=== PATIENT | male | born 1985 | race Caucasian/White ===

== ENCOUNTER 2021-05-05 01:58 | Inpatient (IN) ==
[2021-05-05] MEDS ORDERED: ONDANSETRON INJ 2 MG/ML 2 ML VIAL IV STA (02:30)
[2021-05-05] MEDS ORDERED: MoRPHine SULFATE 4 MG/ML 1 ML CARP\\VIAL IV STA ×2 (02:30→08:05)
[2021-05-05 03:03] LABS: Basophils # (auto) 0.02 K/uL (0-0.2); Basophils % (auto) 0.2 %; Eosinophils # (auto) 0.06 K/uL (0-0.5); Eosinophils % (auto) 0.5 %; Hematocrit (blood only) 36.9 % (42-52); Hemoglobin 12.3 g/dL (14.0-18.0); Immature Granulocytes # (auto) 0.05 K/uL (0.00-0.02); Immature Granulocytes % (auto) 0.4 %; Lymphocytes # (auto) 1.43 K/uL (1.2-3.4); Lymphocytes % (auto) 10.7 %; Mean Corpuscular Hemoglobin 28.5 pg (25-34); Mean Corpuscular Hgb Conc 33.3 g/dL (32-36); Mean Corpuscular Volume 85.6 fL (80-100); Mean Platelet Volume 8.3 fL (7.4-10.4); Monocytes # (auto) 1.05 K/uL (0.11-0.59); Monocytes % (auto) 7.9 %; Neutrophils # (auto) 10.71 K/uL (1.4-6.5); Neutrophils % (auto) 80.3 %; Platelet Count 356 K/uL (130-400); RDW Standard Deviation 40.6 fL (36.4-46.3); Red Blood Count 4.31 M/uL (4.7-6.1); White Blood Count 13.32 K/uL (4.8-10.8)
[2021-05-05 04:21] LABS: Alanine Aminotransferase 16 U/L (12-78); Albumin Level 3.4 gm/dl (3.4-5.0); Aspartate Aminotransferase 9 U/L (15-37); BUN Creatinine Ratio 13.8 (10-20); Blood Urea Nitrogen 20 mg/dl (7-18); Calcium 9.5 mg/dl (8.5-10.1); Carbon Dioxide 21 mmol/L (21-32); Chloride 105 mmol/L (98-107); Creatinine Clr Calc Pharmacy 94.8 ml/min; Est GFR (African American) 69.6 ml/min; Est GFR (Non-African American) 60.1 ml/min; Glucose 122 mg/dl (70-99); Lipase 51 U/L (73-393); Magnesium 2.3 mg/dl (1.8-2.4); Potassium 4.5 mmol/L (3.5-5.1); Sodium 134 mmol/L (136-145)
[2021-05-05 04:25] LABS: Albumin Globulin Ratio 0.7 (0.9-2); Alkaline Phosphatase 98 U/L (45-117); Bilirubin,Total 0.8 mg/dl (0.2-1); Total Protein 8.5 gm/dl (6.4-8.2); Troponin I < 0.015 ng/ml (0-0.045)
[2021-05-05] MEDS ORDERED: SODIUM CHLORIDE 0.9% 1000ML 1,000 ML IV SCH (04:45)
[2021-05-05] MEDS ORDERED: OPTIRAY 320 125ml IV ONE (04:53)
--- NOTE | 2021-05-05 07:30 | CT Scan Report ---
CT ANGIOGRAM OF THE CHEST CLINICAL HISTORY: Atypical left-sided chest pain, greatest with inspiration. COMPARISON STUDY: No priors. TECHNIQUE: Following the IV administration of 118 cc of Optiray 320, CT angiogram of the chest was pe rformed from the upper abdomen to the thoracic inlet utilizing the pulmonary embolus protocol. Images are reviewed in the axial, sagittal, and coronal planes. 3-D MIPS images are created and assessed. I V contrast was administered without complication. A dose lowering technique was utilized adhering to the principles of ALARA. The examination is compromised by motion artifact. There is suboptimal cont rast opacification of the pulmonary arteries. FINDINGS: Thyroid: Imaged portions of the thyroid gland are normal in size and attenuation. Thoracic aorta: The thoracic aorta is normal in caliber and demonstrates standard 3-vessel arch anato my. No dissection is seen. Pulmonary vasculature: The pulmonary trunk is normal in caliber. There is thrombus within the distal right main pulmonary artery. This extends into the right upper, middle, and lower lobe pulmonary elias rona into segmental and subsegmental branches. There is also thrombus within the distal left main pul monary artery which extends into the left upper and left lower lobe branches. Segmental and subsegmen jj pulmonary are seen within branches of the left upper and lower lobe pulmonary arteries as well as within the lingula. Heart: The heart is normal in size and without pericardial effusion. Lungs and pleural spaces: Evaluation of the lung parenchyma is degraded by motion artifact. There is no pleural effusion. The trachea and central airways are clear. Patchy airspace consolidation is seen at the left lung base. Foci of scarring/atelectasis are seen throughout both lungs. A wedge-shaped f ocus of subpleural consolidation in the right upper lobe on image #150 likely represents a pulmonary infarct. A 7 mm nodular focus in the right upper lobe on image #151 shows minimal internal cavitation . Mediastinum: There is no mediastinal lymphadenopathy. [place]: Clear. Axillae: There is no axillary lymphadenopathy. Upper abdomen: There is a small hiatal hernia. Partially visualized upper abdominal viscera is within normal limits. Skeletal structures: No lytic or blastic bony lesions are seen. IMPRESSION: 1. Extensive bilateral pulmonary embolus as above. 2. A small pulmonary infarct is seen in the right upper lobe. 3. Airspace consolidation at the left lung base could represent developing infarct and/or an infectio us/inflammatory pneumonitis. Clinical correlation will be required. 4. A 7 mm nodular focus in the right upper lobe shows internal cavitation. This is nonspecific and co uld be on an inflammatory or infectious basis. 5. Additional findings as above. ACT 112: Negative or not required by law. Electronically signed by: Nacho Solano M.D. 05/05/2021 7:29 AM
--- NOTE | 2021-05-05 07:45 | Emergency Department Note ---
History of Present Illness General Chief complaint: Flank Pain Stated complaint: BACK PAIN, SOB Time Seen by Provider: 05/05/21 02:21 History of Present Illness Maximum Pain Intensity: 3 This is a 35-year-old male that presents to the emergency department via EMS accompanied by 2 corrections officers with complaints of "back pain, shortness of breath". The patient states that earlier today around 6 PM while in his cell he began with left flank/back pain and inability to lay flat as he could not breathe while lying flat. He also does note some shortness of breath even at rest. This is new for him and he has never had this before. The patient denies any known trauma or injury. He denies any abdominal pain, fevers, chills, chest pain, shortness of breath, nausea, vomiting, diarrhea or leg swelling. Patient does note that it also hurts to take a deep breath in the left flank region. Patient has a history of tonsillectomy, without any other pertinent surgeries. Current pain at this time is a 3/10. Per report he did receive Toradol in route. Home Medications Medication Instructions Recorded Confirmed Type artificial saliva (yerba adri and 2 spray MUCOUS MEMBRANE QID PRN 05/05/21 05/05/21 History lytes) spray (Mouth Kote) ciclesonide 80 mcg/actuation 1 puff INHALATION BID 05/05/21 05/05/21 History aerosol inhaler (Alvesco) doxepin 100 mg capsule 200 mg PO HS 05/05/21 05/05/21 History levalbuterol tartrate 45 2 inh INHALATION QID PRN 05/05/21 05/05/21 History mcg/actuation aerosol inhaler (Xopenex HFA) lithium carbonate 450 mg 450 mg PO BID 05/05/21 05/05/21 History tablet,extended release propranolol 20 mg tablet 20 mg PO BID 05/05/21 05/05/21 History Allergies Allergy/AdvReac Type Severity Reaction Status Date / Time No Known Allergies Allergy Verified 05/05/21 02:14 Past Med/Surg History Medical History Bipolar I disorder Creatinine elevation Pulmonary embolism Social History Smoking Status: Former smoker Second Hand Exposure: No; Do You Dip or Chew Tobacco: No; Tobacco Cessation Education Requested by Patient: No Hx Alcohol Use: No Hx Substance Use: No Preferred Language: [employer] Required: No Beliefs That Will Affect Care: None Current Living Situation: Other Current Living Situation Comment: [facility] Other Information That Helps Us Care for You: No Feels Safe at Home: Yes Safety Concerns: Feels Safe At This Time Assistive Devices: None Review of Systems A total of 10 systems reviewed and were otherwise negative Physical Exam Vital Signs Vital Signs - 24 hr 05/05/21 02:07 05/05/21 02:10 05/05/21 03:00 Temperature 36.9 C Temperature Source Oral Pulse Rate 90 82 Pulse Rate [Apical] Pulse Rhythm [Apical] Pulse Strength [Apical] Respiratory Rate 20 22 Respiratory Effort / Characteristics Non-Labored Spontaneous Respiratory Depth Respiratory Pattern Blood Pressure 153/92 H Blood Pressure [Right Arm] Blood Pressure Mean 112 Blood Pressure Mean [Right Arm] Blood Pressure Position [Right Arm] Pulse Oximetry 94 Oxygen Delivery Method Room Air Oxygen Flow Rate Sepsis Recent Fever Within 48 Hours No Sepsis New/Unexplained Change in Mental Status No Sepsis Action Taken by Nursing No Action Required 05/05/21 04:00 05/05/21 04:35 05/05/21 05:30 Temperature Temperature Source Pulse Rate 83 88 Pulse Rate [Apical] 103 H Pulse Rhythm [Apical] Pulse Strength [Apical] Respiratory Rate 17 20 Respiratory Effort / Characteristics Respiratory Depth Respiratory Pattern Blood Pressure Blood Pressure [Right Arm] 154/83 H Blood Pressure Mean Blood Pressure Mean [Right Arm] 106 Blood Pressure Position [Right Arm] Pulse Oximetry Oxygen Delivery Method Oxygen Flow Rate Sepsis Recent Fever Within 48 Hours Sepsis New/Unexplained Change in Mental Status Sepsis Action Taken by Nursing 05/05/21 06:11 05/05/21 07:57 Temperature Temperature Source Pulse Rate Pulse Rate [Apical] 88 Pulse Rhythm [Apical] Regular Pulse Strength [Apical] Normal Respiratory Rate 18 Respiratory Effort / Characteristics Non-Labored Respiratory Depth Normal Respiratory Pattern Regular Blood Pressure Blood Pressure [Right Arm] 137/88 131/91 Blood Pressure Mean Blood Pressure Mean [Right Arm] 104 104 Blood Pressure Position [Right Arm] Sitting Pulse Oximetry 97 100 Oxygen Delivery Method Room Air Nasal Cannula Oxygen Flow Rate 2 Sepsis Recent Fever Within 48 Hours Sepsis New/Unexplained Change in Mental Status Sepsis Action Taken by Nursing VITAL SIGNS - Vital signs and nursing notes were reviewed. Stable and afebrile. GENERAL -35-year-old male appearing his stated age who is in no acute distress. Communicates well with provider and answers questions appropriately. SKIN - Without rashes. No meningeal or petechial rash. HEAD - NC/AT. EYES - PERRL with EOMI bilaterally. Sclera anicteric. LUNGS - Chest wall symmetric without accessory muscle use, intercostals retrac tions, or central cyanosis. Normal vesicular breath sounds CTA B/L. No wheezes, rales, or rhonchi appreciated. CARDIAC - RRR with S1/S2. No murmur, rubs, or gallops appreciated. ABDOMEN - Abdominal contour normal without pulsations or visible masses. BS normoactive all four quadrants. No tenderness, palpable masses, hepatosplenomegaly, or ascites noted. EXTREMITIES - No clubbing or peripheral cyanosis. NEUROLOGIC - Cranial nerves II through XII grossly intact. PSYCH - A&Ox3 and cooperates fully with examiner. Pt is very pleasant and interacts well with examiner. Course Administered Medications Acetaminophen (Acetaminophen 325 Mg Tab) 650 mg PO Q4H PRN PRN Reason: Pain or Fever Stop: 06/04/21 11:10 Last Admin: 05/05/21 12:28 Dose: 650 mg Documented by: [id number] Heparin Sodium/Dextrose (Heparin Sodium/Dextrose) 25,000 units in 500 mls @ 37 mls/hr IV .[id number] [facility]; Protocol Stop: 06/04/21 08:29 Last Admin: 05/05/21 22:26 Dose: 2,050 units/hr, 41 mls/hr Documented by: [id number] Cosigned by: [id number] Titration: 05/05/21 22:26 Dose: 1,850 units/hr, 37 mls/hr Documented by: [id number] Cosigned by: [id number] Titration: 05/05/21 15:26 Dose: 1,850 units/hr, 37 mls/hr Documented by: [id number] Cosigned by: [id number] Admin: 05/05/21 08:41 Dose: 1,750 units/hr, 35 mls/hr Documented by: [id number] Cosigned by: [id number] Lorazepam (Lorazepam 0.5 Mg Tab) 0.5 mg PO Q12H PRN PRN Reason: Anxiety Stop: 05/07/21 18:51 Last Admin: 05/05/21 19:23 Dose: 0.5 mg Documented by: [id number] Morphine Sulfate (Morphine Sulfate 4 Mg/Ml 1 Ml Carp\\Vial) 4 mg IV Q2H PRN PRN Reason: Pain Stop: 05/19/21 09:36 Last Admin: 05/05/21 22:29 Dose: 4 mg Documented by: [id number] Admin: 05/05/21 18:28 Dose: 4 mg Documented by: [id number] Admin: 05/05/21 16:23 Dose: 4 mg Documented by: [id number] Admin: 05/05/21 13:26 Dose: 4 mg Documented by: [id number] Admin: 05/05/21 09:41 Dose: 4 mg Documented by: [id number] Oxycodone HCl (Oxycodone Hcl Soln 5 Mg/5 Ml Udc) 5 mg PO Q6H PRN PRN Reason: Pain Stop: 05/19/21 18:52 Last Admin: 05/05/21 19:23 Dose: 5 mg Documented by: [id number] Discontinued Medications Heparin Sodium (Porcine) (Heparin Sod (Porcine) 1000 Unit/Ml) 1 units IV NOW ONE Stop: 05/05/21 08:21 Last Admin: 05/05/21 08:43 Dose: 8,000 units Documented by: [id number] Cosigned by: [id number] Heparin Sodium (Porcine) (Heparin Sod (Porcine) 1000 Unit/Ml) 4,000 units IV NOW ONE Stop: 05/05/21 22:01 Last Admin: 05/05/21 22:26 Dose: 4,000 units Documented by: [id number] Cosigned by: [id number] Heparin Sodium/Dextrose (Heparin Iv Adult Wt-Based Standard With Bolus Protocol) 1 ea IV NOW STA; Protocol Stop: 05/05/21 08:06 Last Admin: 05/05/21 08:43 Dose: Not Given Documented by: [id number] Hydromorphone HCl (Hydromorphone Inj 1 Mg/Ml Syringe) 1 mg IV NOW STA Stop: 05/05/21 10:13 Last Admin: 05/05/21 10:23 Dose: 1 mg Documented by: [id number] Sodium Chloride (Nss 1000ml) 1,000 mls @ 999 mls/hr IV .Q1H1M LIANE Stop: 05/05/21 05:45 Last Infusion: 05/05/21 06:01 Dose: 0 mls/hr Documented by: [id number] Admin: 05/05/21 04:50 Dose: 999 mls/hr Documented by: [id number] Ioversol (Optiray 320 125ml) 125 ml IV ONCE ONE Stop: 05/05/21 04:54 Last Admin: 05/05/21 04:53 Dose: 118 ml Documented by: [id number] Morphine Sulfate (Morphine Sulfate 4 Mg/Ml 1 Ml Carp\\Vial) 4 mg IV NOW STA Stop: 05/05/21 02:31 Last Admin: 05/05/21 03:01 Dose: 4 mg Documented by: [id number] Morphine Sulfate (Morphine Sulfate 4 Mg/Ml 1 Ml Carp\\Vial) 4 mg IV NOW STA Stop: 05/05/21 08:06 Last Admin: 05/05/21 08:14 Dose: 4 mg Documented by: [id number] Ondansetron HCl (Ondansetron Inj 2 Mg/Ml 2 Ml Vial) 4 mg IV NOW STA Stop: 05/05/21 02:31 Last Admin: 05/05/21 03:01 Dose: 4 mg Documented by: [id number] Critical Care Time Critical Care Time: Yes Total Critical Care Time: 60 I have personally spent about 60 minutes of critical care time in the direct management of this patient. This includes bedside care, interpretation of diagnostic studies, and testing, discussion with consultants, patient, and other required patient management activities. This 60 minutes is in excess of all separately billable procedures. Medical Decision Making Laboratory Data Result diagrams: 05/05/21 02:50 05/05/21 02:50 Lab Results 05/05/21 05/05/21 05/05/21 Range/Units 02:50 02:50 02:50 WBC 13.32 H (4.8-10.8) K/uL RBC 4.31 L (4.7-6.1) M/uL Hgb 12.3 L (14.0-18.0) g/dL Hct 36.9 L (42-52) % MCV 85.6 (80-100) fL MCH 28.5 (25-34) pg MCHC 33.3 (32-36) g/dL RDW Std Deviation 40.6 (36.4-46.3) fL RDW Coeff of Aleksandr 13.0 (11.5-14.5) % Plt Count 356 (130-400) K/uL MPV 8.3 (7.4-10.4) fL Immature Gran % (Auto) 0.4 % Neut % (Auto) 80.3 % Lymph % (Auto) 10.7 % Rawlins % (Auto) 7.9 % Eos % (Auto) 0.5 % Baso % (Auto) 0.2 % Neut # (Auto) 10.71 H (1.4-6.5) K/uL Lymph # (Auto) 1.43 (1.2-3.4) K/uL Rawlins # (Auto) 1.05 H (0.11-0.59) K/uL Eos # (Auto) 0.06 (0-0.5) K/uL Baso # (Auto) 0.02 (0-0.2) K/uL Immature Gran # (Auto) 0.05 H (0.00-0.02) K/uL PT 10.6 (9.0-12.0) Seconds INR 1.0 (0.9-1.1) APTT 26.4 (21.0-31.0) Seconds PTT Ratio 1.0 Sodium 134 L (136-145) mmol/L Potassium 4.5 (3.5-5.1) mmol/L Chloride 105 (98-107) mmol/L Carbon Dioxide 21 (21-32) mmol/L Anion Gap 8.0 (3-11) BUN 20 H (7-18) mg/dl Creatinine 1.47 H (0.6-1.4) mg/dl Est Cr Clr Drug Dosing 94.8 ml/min Est GFR ( Amer) 69.6 ml/min Est GFR (Non-Af Amer) 60.1 ml/min BUN/Creatinine Ratio 13.8 (10-20) Glucose 122 H (70-99) mg/dl Calcium 9.5 (8.5-10.1) mg/dl Magnesium 2.3 (1.8-2.4) mg/dl Total Bilirubin 0.8 (0.2-1) mg/dl AST 9 L (15-37) U/L ALT 16 (12-78) U/L Alkaline Phosphatase 98 (45-117) U/L Troponin I < 0.015 (0-0.045) ng/ml Total Protein 8.5 H (6.4-8.2) gm/dl Albumin 3.4 (3.4-5.0) gm/dl Globulin 5.0 H (2.5-4.0) gm/dl Albumin/Globulin Ratio 0.7 L (0.9-2) Lipase 51 L (73-393) U/L COVID-19 Eval Order SARS-CoV-2 (PCR) (Negative) 05/05/21 05/05/21 Range/Units 08:00 08:00 WBC (4.8-10.8) K/uL RBC (4.7-6.1) M/uL Hgb (14.0-18.0) g/dL Hct (42-52) % MCV (80-100) fL MCH (25-34) pg MCHC (32-36) g/dL RDW Std Deviation (36.4-46.3) fL RDW Coeff of Aleksandr (11.5-14.5) % Plt Count (130-400) K/uL MPV (7.4-10.4) fL Immature Gran % (Auto) % Neut % (Auto) % Lymph % (Auto) % Rawlins % (Auto) % Eos % (Auto) % Baso % (Auto) % Neut # (Auto) (1.4-6.5) K/uL Lymph # (Auto) (1.2-3.4) K/uL Raw[place]ins # (Auto) (0.11-0.59) K/uL Eos # (Auto) (0-0.5) K/uL Baso # (Auto) (0-0.2) K/uL Immature Gran # (Auto) (0.00-0.02) K/uL PT (9.0-12.0) Seconds INR (0.9-1.1) APTT (21.0-31.0) Seconds PTT Ratio Sodium (136-145) mmol/L Potassium (3.5-5.1) mmol/L Chloride (98-107) mmol/L Carbon Dioxide (21-32) mmol/L Anion Gap (3-11) BUN (7-18) mg/dl Creatinine (0.6-1.4) mg/dl Est Cr Clr Drug Dosing ml/min Est GFR ( Amer) ml/min Est GFR (Non-Af Amer) ml/min BUN/Creatinine Ratio (10-20) Glucose (70-99) mg/dl Calcium (8.5-10.1) mg/dl Magnesium (1.8-2.4) mg/dl Total Bilirubin (0.2-1) mg/dl AST (15-37) U/L ALT (12-78) U/L Alkaline Phosphatase (45-117) U/L Troponin I (0-0.045) ng/ml Total Protein (6.4-8.2) gm/dl Albumin (3.4-5.0) gm/dl Globulin (2.5-4.0) gm/dl Albumin/Globulin Ratio (0.9-2) Lipase (73-393) U/L COVID-19 Eval Order Covid19 at [facility] SARS-CoV-2 (PCR) NEGATIVE (Negative) Imaging Data Radiologist's Impression: Chest CTA 05/05/21 02:30 CT ANGIOGRAM OF THE CHEST CLINICAL HISTORY: Atypical left-sided chest pain, greatest with inspiration. COMPARISON STUDY: No priors. TECHNIQUE: Following the IV administration of 118 cc of Optiray 320, CT angiogram of the chest was performed from the upper abdomen to the thoracic inlet utilizing the pulmonary embolus protocol. Images are reviewed in the axial, sagittal, and coronal planes. 3-D MIPS images are created and assessed. IV contrast was administered without complication. A dose lowering technique was utilized adhering to the principles of ALARA. The examination is compromised by motion artifact. There is suboptimal contrast opacification of the pulmonary arteries. FINDINGS: Thyroid: Imaged portions of the thyroid gland are normal in size and attenuation. Thoracic aorta: The thoracic aorta is normal in caliber and demonstrates standard 3-vessel arch anatomy. No dissection is seen. Pulmonary vasculature: The pulmonary trunk is normal in caliber. There is thrombus within the distal right main pulmonary artery. This extends into the right upper, middle, and lower lobe pulmonary arteries into segmental and subsegmental branches. There is also thrombus within the distal left main pulmonary artery which extends into the left upper and left lower lobe branches. Segmental and subsegmental pulmonary are seen within branches of the left upper and lower lobe pulmonary arteries as well as within the lingula. Heart: The heart is normal in size and without pericardial effusion. Lungs and pleural spaces: Evaluation of the lung parenchyma is degraded by motion artifact. There is no pleural effusion. The trachea and central airways are clear. Patchy airspace consolidation is seen at the left lung base. Foci of scarring/atelectasis are seen throughout both lungs. A wedge-shaped focus of subpleural consolidation in the right upper lobe on image #150 likely represents a pulmonary infarct. A 7 mm nodular focus in the right upper lobe on image #151 shows minimal internal cavitation. Mediastinum: There is no mediastinal lymphadenopathy. Moraima: Clear. Axillae: There is no axillary lymphadenopathy. Upper abdomen: There is a small hiatal hernia. Partially visualized upper abdominal viscera is within normal limits. Skeletal structures: No lytic or blastic bony lesions are seen. IMPRESSION: 1. Extensive bilateral pulmonary embolus as above. 2. A small pulmonary infarct is seen in the right upper lobe. 3. Airspace consolidation at the left lung base could represent developing infarct and/or an infectious/inflammatory pneumonitis. Clinical correlation will be required. 4. A 7 mm nodular focus in the right upper lobe shows internal cavitation. This is nonspecific and could be on an inflammatory or infectious basis. 5. Additional findings as above. ACT 112: Negative or not required by law. Electronically signed by: Nacho Solano M.D. 05/05/2021 7:29 AM CTA CHEST: There is suboptimal contrast opacification of the pulmonary arterial tree. There appeared to be multiple pulmonary emboli involving the upper, lower, and right middle lobes. The RV/LV ratio is abnormal measuring 1.1. There are scattered interstitial infiltrates in the lung bases as well as a triangular 2.5 segmenta consolidation in the right mid lung along the major fissure. No pneumothorax or pleural effusion is seen. Skeletal structures are unremarkable. The thoracic aorta is nondilated. There is no aneurysm or dissection. The heart is not enlarged. There is images of the upper abdomen are unremarkable. Radiologist: Franco Price MD Study ready at 04:59 and initial results transmitted at 06:12 Communications: Clear Time Type Notes 05/05/21 06:18 Call Doctor Regarding Pulmonary Embolism, called KIRK Velasco on 05/05 06:18 (-04:00) CT ABDOMEN & PELVIS With Contrast: The appendix is normal. Bowel loops are nondilated. No acute inflammatory changes are seen involving the bowel. Fatty infiltration of the liver and borderline hepatomegaly measuring 18 cm. No focal liver lesion is seen. The gallbladder, pancreas, spleen, adrenal glands, kidneys appear within normal limits. The urinary bladder is partially distended and unremarkable. Mild streaky atelectasis, less likely pneumonia in both lung bases. Radiologist: Franco Price MD Study ready at 04:59 and initial results transmitted at 07:03 CT abd pelvis IV con only CLINICAL HISTORY: Inspiratory L flank pain TECHNIQUE: Helical axial images of the abdomen and pelvis were obtained and displayed. Automated dose lowering techniques and/or adjustment according to patient size were utilized for this exam. This exam was performed with intravenous contrast. COMPARISON: None available at the time of this dictation. FINDINGS: Lower chest: For findings above the diaphragm, please see CT chest performed same day. Liver: Unremarkable. No focal lesions are seen. Gallbladder and biliary tree: No calcified gallstones. Normal caliber wall. No intra- or extrahepatic biliary ductal dilation. Pancreas: Unremarkable, no focal lesions. Spleen: Unremarkable. Adrenals: Unremarkable. Kidneys and ureters: A 1 cm renal cyst is seen in the right superior pole. Smaller hypodensities are seen bilaterally favored to represent cysts. Bladder: Unremarkable. Reproductive organs: Unremarkable. Bowel: Unremarkable. The appendix is normal. Lymph nodes Retroperitoneal: Unremarkable. Mesenteric: Unremarkable. Pelvic: Unremarkable. Peritoneum: Normal. Vessels: There is a filling defect in the right internal and external iliac veins extending into the common iliac vein. There is surrounding stranding. Abdominal wall: Right fat-containing inguinal hernia. Bones: Degenerative changes in the visualized spine. IMPRESSION: Deep venous thrombus in the internal and external iliac veins in this patient with history of pulmonary embolism. Otherwise no acute abnormalities are seen. ACT 112: Negative or not required by law. Electronically signed by: Melecio Dudley M.D. 05/05/2021 9:07 AM BILATERAL LOWER EXTREMITY VENOUS DOPPLER CLINICAL HISTORY: Pulmonary emboli. COMPARISON STUDY: No previous studies for comparison. TECHNIQUE: Sonography of the deep venous system of the bilateral lower extremities was performed. Compression and augmentation were evaluated. FINDINGS: The bilateral common femoral, superficial femoral and popliteal veins were compressible. Augmentation was normal. Flow was shown within the deep calf vessels although the calf vessels were suboptimally assessed on this exam. IMPRESSION: No evidence of deep venous thrombus within the bilateral lower extremities. ACT 112: Negative or not required by law. Electronically signed by: Pete Segundo M.D. 05/05/2021 7:58 AM [facility] Narrative Patient was seen and evaluated as above in room A11. Review was performed of nursing notes and vital signs. After obtaining a thorough history and physical examination the above work up was performed. Patient presents to us today via ambulance accompanied by 2 corrections officers from [facility] where the patient is currently incarcerated with complaints of "back pain, shortness of breath". The patient is nontoxic on exam. Vital signs overall stable. The left flank pain is not reproducible on exam or palpation. Options of care were discussed with the patient. IV access was established. Labs were drawn. There is mild leukocytosis 13.30. Mild anemia noted with hemoglobin of 12.3. No emergent metabolic disturbance beyond that of mild creatinine and BUN elevation. Troponin negative. Pending work-up patient was hydrated. Urinalysis does not suggest infection. Covid testing negative. CTA of the chest as well as abdomen pelvis CT scan was performed. Results as above. The patient has extensive bilateral pulmonary embolus with additional findings as noted in the report. CT scan of the abdomen pelvis also concerning for potential clot burden. At this time I did discuss benefit versus risk of anticoagulation with the patient. I also discussed with the patient in depth the increaesd bleeding risk. Patient denies any recent trauma or injury. He denies any blood in the stool or urine. No black or tarry like stools. Through shared decision making with the patient at this time we will proceed with a sta ndard bolus of heparin with IV drip based on weight. This was ordered. Patient tolerated this well. Patient does have some discomfort in the left flank which was managed here with IV analgesics. Patient will be admitted to the hospital for further evaluation and management. Case discussed with the hospitalist. Please refer to further documentation regarding his stay. While in the department, I personally reevaluated the patient several times and each time the patient was found to persistently hemodynamically stable and clinically appearing well. Case was discussed with the attending physician. EKG was reviewed by myself and found to be Normal Sinus Rhythm at a rate of 90 beats per minute and per my interpretation reveals no ST elevation. QTc 420. QRS 100. GCS: 15 In the evaluation and treatment of this patient, the following differential diagnoses were considered: WI, ASC, Dysrhythmia, Angina, Mediastinitis, GERD, Esophagitis, PE, Pneumonia, Bronchitis, Costochondritis, Rib Fracture, dissection, zoster, among others. Impression & Plan Pulmonary embolism, Creatinine elevation, Acute left-sided back pain, Painful respiration Discharge Plan Visit Data Chief Complaint: Flank Pain Stated Complaint: BACK PAIN, SOB ED Provider: Arabella Staton ED Midlevel Provider: Nate Velasco Discharge Problem: Pulmonary embolism, Creatinine elevation, Acute left-sided back pain, Painful respiration Patient Disposition: Admitted As Inpatient Condition: Good Discharge Instructions Interventions: ED Discharge Assessment Last Done: 05/05/21 10:46
[2021-05-05 08:00] LABS: Partial Thromboplastin Time 26.4 Seconds (21.0-31.0); Prothrombin Time 10.6 Seconds (9.0-12.0)
--- NOTE | 2021-05-05 08:00 | Ultrasound Report ---
BILATERAL LOWER EXTREMITY VENOUS DOPPLER CLINICAL HISTORY: Pulmonary emboli. COMPARISON STUDY: No previous studies for comparison. TECHNIQUE: Sonography of the deep venous system of the bilateral lower extremities was performed. Co mpression and augmentation were evaluated. FINDINGS: The bilateral common femoral, superficial femoral and popliteal veins were compressible. A ugmentation was normal. Flow was shown within the deep calf vessels although the calf vessels were ling boptimally assessed on this exam. IMPRESSION: No evidence of deep venous thrombus within the bilateral lower extremities. ACT 112: Negative or not required by law. Electronically signed by: Pete Segundo M.D. 05/05/2021 7:58 AM
[2021-05-05] MEDS ORDERED: Heparin IV Adult Wt-Based Standard WITH Bolus Protocol IV STA (08:05)
[2021-05-05] MEDS ORDERED: HEPARIN SOD (PORCINE) 1000 UNIT/ML IV ONE ×2 (08:20→22:00)
[2021-05-05] MEDS: HEPARIN SODIUM/DEXTROSE 25,000 UNITS/500 ML BAG IV SCH ×2 (08:41→22:26)
--- NOTE | 2021-05-05 09:05 | History & Physical Report ---
Date of Service May 05, 2021 Assessment & Plan (1) Pulmonary embolism: Plan: - Admit to med surg with tele for monitoring - CT abd showing deep iliac and femoral DVT, Chest showing multiple areas of clot burden and RLL infarct as above - Currently VSS with O2 at 2L via NC, pt does not normally wear O2 - Coag panel pending as event for PE --- possible that this was prompted by sedentary lifestyle while in solitary confinement x 5 months up until 3 weeks ago as per HPI. He likely had DVT that traveled upward and now being seen in abd in internal, external and common iliac veins and moved throughout right and left lung, there is also a small pulmonary infarct seen in the right upper lobe. - Noted 7 mm cavitation in the RUL - will check quantiferon gold test to r/o TB as is a prisoner. - Continue on heparin gtt, plan to transition to NOAC - Check 2D echo - Continue morphine for SOB and pain - Continue supportive care with incentive spirometer and flutter. No leukocytosis, afebrile. Concern for pneumonitis on CT, also noted a 7 mm RUL internal cavitation ? inflammatory or infectious? - COVID negative on admission. pt denies hx of such and is vaccinated. - Unknown family hx of clotting disorder due to being adopted as a child (2) Acute respiratory failure with hypoxia: Plan: - Secondary to acute PE - Continue supplemental O2 and wean as tolerated - As above (3) Obesity (BMI 35.0-39.9 without comorbidity): Plan: - BMI of 38.0 - Diet and exercise to be encouraged (4) Creatinine elevation: Plan: - Cr is 1.4 on admission, likely elevated in the setting of acute illness versus chronic kidney disease, will trend with am labs to determine if JOSE or if chronic. (5) Bipolar I disorder: Plan: - Continue lithium 450 mg BID for mood stabilization and doxepin 200 mg for sleep - Pt reports last episode of arian was about 3 years ago - Continue propranolol 20 mg BID for psych - not for cardiac purposes. Pt denies cardiac history. DVT ppx: - teds, heparin drip CODE: Full code [facility] likely to remain in the hospital x 1-2 days History of Present Illness Primary Care Provider: [facility] This is a 35 yo M with PMHx of obesity with BMI of 38.0, bipolar type I, remote smoking hx x 18 pack years, quit 3 years ago, who presents to the hospital overnight with complaints of right sided upper abdominal pain which was worse with deep breaths. He noticed this starting around 6 PM last evening. Denies any chest pain, palpitations, syncopal episodes. Patient reports it is difficult to breathe deep breaths due to pain in the right side. Of note the patient was in solitary confinement for 5 months up until 3 weeks ago whenever [facility]. During that timeframe he was confined to one cell and states that he spent most of his time lying in bed. He has been incarcerated x9 years, and scheduled to get out in 2028. Otherwise he denies any long car rides, flights, trauma to the lower leg which could have caused DVT. His ultrasound of bilateral lower extremities is negative. He denies any history of erich Covid-19, and reports that he has recieved vaccine. He denies any hx of cancer that he is aware of, no weight loss, night sweats, or swollen lymph nodes that he has noticed. PMHx: Patient denies any known history of blood clotting disorders Family Hx: reports that he was adopted as a child therefore does not know any of his biological parents health history. Social Hx: Smoked between ages [age] 1 ppd, then again from 19 yo to 32 yo. ---15 pack years, denies alcohol use or ilicit drug use. Currently incarcerated as above. Imaging revealed multiple segmental PE's: CT of the abdomen reveals deep venous thrombus in the internal and external iliac veins in this patient with history of pulmonary embolism. distal right main pulmonary artery. This extends into the right upper, middle, and lower lobe pulmonary arteries into segmental and subsegmental branches. There is also thrombus within the distal left main pulmonary artery which exte nds into the left upper and left lower lobe branches. Segmental and subsegmental pulmonary are seen within branches of the left upper and lower lobe pulmonary arteries as well as within the lingula. 7 mm nodular focus in the right upper lobe shows internal cavitation. This is nonspecific and could be on an inflammatory or infectious basis. His blood work is primarily normal, with noted elevated in Cr. on admission. Vitals are stable with O2 sats in high 90s while he is on 2L via NC. Allergies Allergy/AdvReac Type Severity Reaction Status Date / Time No Known Allergies Allergy Verified 05/05/21 02:14 Home Medications Medication Instructions Recorded Confirmed Type artificial saliva (yerba adri and 2 spray MUCOUS MEMBRANE QID PRN 05/05/21 05/05/21 History lytes) spray (Mouth Kote) ciclesonide 80 mcg/actuation 1 puff INHALATION BID 05/05/21 05/05/21 History aerosol inhaler (Alvesco) doxepin 100 mg capsule 200 mg PO HS 05/05/21 05/05/21 History levalbuterol tartrate 45 2 inh INHALATION QID PRN 05/05/21 05/05/21 History mcg/actuation aerosol inhaler (Xopenex HFA) lithium carbonate 450 mg 450 mg PO BID 05/05/21 05/05/21 History tablet,extended release propranolol 20 mg tablet 20 mg PO BID 05/05/21 05/05/21 History Past Med/Surg History Social History Smoking Status: Former smoker Second Hand Exposure: No; Do You Dip or Chew Tobacco: No; Tobacco Cessation Education Requested by Patient: No Hx Alcohol Use: No Hx Substance Use: No Preferred Language: Italian 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 No cough, sputum, dyspnea at rest or on exertion, + pain with deep breaths Cardiovascular: No chest pain, tightness or palpitations Abdomen: No pain, nausea, vomiting, diarrhea or constipation Musculoskeletal: No joint pain, calf pain, swelling Neurologic: No weakness, numbness/tingling, or balance problems Psychiatric: No anxiety or depression Skin: No rash or itch Physical Exam Physical Exam: General: awake, alert, no apparent distress, obese with BMI 38 Head: Normocephalic, atraumatic ENT: PERRL, EOMI, no pharyngeal exudate, mucous membranes moist Chest: Clear to auscultation, poor respiratory effort with deep breaths due to pain, no adventitious breath sounds, on 2 L via NC with sats of 99%, Cardiac: Regular rate and rhythm, no murmur, no JVD, normal peripheral pulses, good capillary refill Abdominal: NABS x 4 quadrants, soft, nondistended, nontender to palpation, no rebound or guarding Extremities: Normal inspection, no peripheral edema or erythema, calfs nontender to palpation Psych: Normal mood and affect Neuro: AAO x 3, strength intact bilaterally and rated 5/5, no motor deficits, speech is clear, no peripheral sensory deficits Results & Data Results & Data ([facility]) Vital Signs (Past 12 Hours) Vital Signs Temp Pulse Pulse Resp BP BP Pulse Ox 05/05/21 08:30 86 18 131/87 100 05/05/21 07:57 88 18 131/91 100 05/05/21 06:11 137/88 97 05/05/21 05:30 88 20 05/05/21 04:35 103 H 154/83 H 05/05/21 04:00 83 17 05/05/21 03:00 82 22 05/05/21 02:10 36.9 C 05/05/21 02:07 90 20 153/92 H 94 Diagnostic Findings Chest CTA 05/05/21 02:30 CT ANGIOGRAM OF THE CHEST CLINICAL HISTORY: Atypical left-sided chest pain, greatest with inspiration. COMPARISON STUDY: No priors. TECHNIQUE: Following the IV administration of 118 cc of Optiray 320, CT angiogram of the chest was performed from the upper abdomen to the thoracic inlet utilizing the pulmonary embolus protocol. Images are reviewed in the axial, sagittal, and coronal planes. 3-D MIPS images are created and assessed. IV contrast was administered without complication. A dose lowering technique was utilized adhering to the principles of ALARA. The examination is compromised by motion artifact. There is suboptimal contrast opacification of the pulmonary arteries. FINDINGS: Thyroid: Imaged portions of the thyroid gland are normal in size and attenuation. Thoracic aorta: The thoracic aorta is normal in caliber and demonstrates standard 3-vessel arch anatomy. No dissection is seen. Pulmonary vasculature: The pulmonary trunk is normal in caliber. There is thrombus within the distal right main pulmonary artery. This extends into the right upper, middle, and lower lobe pulmonary arteries into segmental and subsegmental branches. There is also thrombus within the distal left main pulmonary artery which extends into the left upper and left lower lobe branches. Segmental and subsegmental pulmonary are seen within branches of the left upper and lower lobe pulmonary arteries as well as within the lingula. Heart: The heart is normal in size and without pericardial effusion. Lungs and pleural spaces: Evaluation of the lung parenchyma is degraded by motion artifact. There is no pleural effusion. The trachea and central airways are clear. Patchy airspace consolidation is seen at the left lung base. Foci of scarring/atelectasis are seen throughout both lungs. A wedge-shaped focus of subpleural consolidation in the right upper lobe on image #150 likely represents a pulmonary infarct. A 7 mm nodular focus in the right upper lobe on image #151 shows minimal internal cavitation. Mediastinum: There is no mediastinal lymphadenopathy. Moraima: Clear. Axillae: There is no axillary lymphadenopathy. Upper abdomen: There is a small hiatal hernia. Partially visualized upper abdominal viscera is within normal limits. Skeletal structures: No lytic or blastic bony lesions are seen. IMPRESSION: 1. Extensive bilateral pulmonary embolus as above. 2. A small pulmonary infarct is seen in the right upper lobe. 3. Airspace consolidation at the left lung base could represent developing infarct and/or an infectious/inflammatory pneumonitis. Clinical correlation will be required. 4. A 7 mm nodular focus in the right upper lobe shows internal cavitation. This is nonspecific and could be on an inflammatory or infectious basis. 5. Additional findings as above. ACT 112: Negative or not required by law. Electronically signed by: Nacho Solano M.D. 05/05/2021 7:29 AM Abdomen/Pelvis CT 05/05/21 02:31 CT abd pelvis IV con only CLINICAL HISTORY: Inspiratory L flank pain TECHNIQUE: Helical axial images of the abdomen and pelvis were obtained and displayed. Automated dose lowering techniques and/or adjustment according to patient size were utilized for this exam. This exam was performed with intravenous contrast. COMPARISON: None available at the time of this dictation. FINDINGS: Lower chest: For findings above the diaphragm, please see CT chest performed same day. Liver: Unremarkable. No focal lesions are seen. Gallbladder and biliary tree: No calcified gallstones. Normal caliber wall. No intra- or extrahepatic biliary ductal dilation. Pancreas: Unremarkable, no focal lesions. Spleen: Unremarkable. Adrenals: Unremarkable. Kidneys and ureters: A 1 cm renal cyst is seen in the right superior pole. Smaller hypodensities are seen bilaterally favored to represent cysts. Bladder: Unremarkable. Reproductive organs: Unremarkable. Bowel: Unremarkable. The appendix is normal. Lymph nodes Retroperitoneal: Unremarkable. Mesenteric: Unremarkable. Pelvic: Unremarkable. Peritoneum: Normal. Vessels: There is a filling defect in the right internal and external iliac veins extending into the common iliac vein. There is surrounding stranding. Abdominal wall: Right fat-containing inguinal hernia. Bones: Degenerative changes in the visualized spine. IMPRESSION: Deep venous thrombus in the internal and external iliac veins in this patient with history of pulmonary embolism. Otherwise no acute abnormalities are seen. ACT 112: Negative or not required by law. Electronically signed by: Melecio Dudley M.D. 05/05/2021 9:07 AM Venous Doppler Study 05/05/21 06:20 BILATERAL LOWER EXTREMITY VENOUS DOPPLER CLINICAL HISTORY: Pulmonary emboli. COMPARISON STUDY: No previous studies for comparison. TECHNIQUE: Sonography of the deep venous system of the bilateral lower extremities was performed. Compression and augmentation were evaluated. FINDINGS: The bilateral common femoral, superficial femoral and popliteal veins were compressible. Augmentation was normal. Flow was shown within the deep calf vessels although the calf vessels were suboptimally assessed on this exam. IMPRESSION: No evidence of deep venous thrombus within the bilateral lower extremities. ACT 112: Negative or not required by law. Electronically signed by: Pete Segundo M.D. 05/05/2021 7:58 AM ECG Additional Comments: 05-MAY-2021 06:28:02 [facility]-EDSTAT ROUTINE RETRIEVAL Normal sinus rhythm Possible Inferior infarct , age undetermined Abnormal ECG When compared with ECG of 05-MAY-2021 02:06, (unconfirmed) No significant change was found 25mm/s 10mm/mV 150Hz 9.0.9 12SL 241 HD ANDRE: 12 Referred by: [facility] Unconfirmed Vent. rate 88 BPM LA interval 184 ms QRS duration 102 ms QT/QTc 362/438 ms Code Status & VTE Plan Code Status Full code VTE Prophylaxis Plan VTE Prophylaxis will be ordered: Yes Supervising Physician Co-Signing Physician Notes 35 yo M with PMHx of obesity with BMI of 38.0, bipolar type I, remote smoking hx x 18 pack years, quit 3 years ago, who presents 05/05 to the hospital overnight with complaints of right belly pain exacerbated with deep breathing. Patient was in solitary confinement for 5 months up until 3 weeks ago when he was transferred to [facility] and reports that he has been in bed pretty much since last few months. Patient was found to have extensive pelvic DVT and PE. Likely secondary to immobility. Patient on heparin drip. Patient has component of JOSE but not sure of his baseline hemoglobin. Since patient is adopted, not sure of any family history of blood clot. Patient did not have any history of blood clot in the past. Patient has right upper lobe cavitation, will get QuantiFERON test. Admitting echo: EF 55 to 60% with normal diastolic function and normal right ventricular size and function. Troponinx1 negative. Upon examination: GENERAL: Alert and oriented x3. NAD, on 2L. HEENT: No pallor, no icterus. Pupils equal, round and reactive to light. Oral mucosa moist. NECK: No JVD, no neck masses. HEART: S1 and S2 heard. Regular rate and rhythm. No murmur, no gallop. Tachycardic RESPIRATORY SYSTEM: Normal AP diameter. No accessory muscle use. No wheezing, no crackles. ABDOMEN: Soft, bowel sounds present, nontender, no distention. CENTRAL NERVOUS SYSTEM: No facial droop. Speech is clear. Obeys simple commands. Moves extremities. EXTREMITIES: No edema, no erythema seen. I have seen and examined the patient and have discussed the case with the provider above. I agree with the assessment and plan as stated.
--- NOTE | 2021-05-05 09:09 | CT Scan Report ---
CT abd pelvis IV con only CLINICAL HISTORY: Inspiratory L flank pain TECHNIQUE: Helical axial images of the abdomen and pelvis were obtained and displayed. Automated dose lowering techniques and/or adjustment according to patient size were utilized for this exam. This e xam was performed with intravenous contrast. COMPARISON: None available at the time of this dictation. FINDINGS: Lower chest: For findings above the diaphragm, please see CT chest performed same day. Liver: Unremarkable. No focal lesions are seen. Gallbladder and biliary tree: No calcified gallstones. Normal caliber wall. No intra- or extrahepatic biliary ductal dilation. Pancreas: Unremarkable, no focal lesions. Spleen: Unremarkable. Adrenals: Unremarkable. Kidneys and ureters: A 1 cm renal cyst is seen in the right superior pole. Smaller hypodensities are seen bilaterally favored to represent cysts. Bladder: Unremarkable. Reproductive organs: Unremarkable. Bowel: Unremarkable. The appendix is normal. Lymph nodes Retroperitoneal: Unremarkable. Mesenteric: Unremarkable. Pelvic: Unremarkable. Peritoneum: Normal. Vessels: There is a filling defect in the right internal and external iliac veins extending into the common iliac vein. There is surrounding stranding. Abdominal wall: Right fat-containing inguinal hernia. Bones: Degenerative changes in the visualized spine. IMPRESSION: Deep venous thrombus in the internal and external iliac veins in this patient with history of pulmona ry embolism. Otherwise no acute abnormalities are seen. ACT 112: Negative or not required by law. Electronically signed by: Melecio Dudley M.D. 05/05/2021 9:07 AM
[2021-05-05] MEDS: MoRPHine SULFATE 4 MG/ML 1 ML CARP\\VIAL IV PRN ×5 (09:41→22:29)
[2021-05-05] MEDS ORDERED: HYDROmorphone INJ 1 MG/ML SYRINGE IV STA (10:12)
[2021-05-05] MEDS ORDERED: POLYETHYLENE (MIRALAX) 17 GM PACK PO PRN (11:11)
[2021-05-05] MEDS ORDERED: ONDANSETRON INJ 2 MG/ML 2 ML VIAL IV PRN (11:11)
[2021-05-05] MEDS: ACETAMINOPHEN 325 MG TAB PO PRN (12:28)
--- NOTE | 2021-05-05 13:33 | Electrocardiogram Report ---
Test Reason : Blood Pressure : / mmHG Vent. Rate : 090 BPM Atrial Rate : 090 BPM P-R Int : 180 ms QRS Dur : 100 ms QT Int : 344 ms P-R-T Axes : 062 013 046 degrees QTc Int : 420 ms Normal sinus rhythm Normal ECG No previous ECGs available Confirmed by Asael Mercer ([id number]) on 05/05/2021 1:32:58 PM Referred By: [facility] Confirmed By:Asael Mercer
[2021-05-05 14:27] LABS: Appearance Urine Clear (Clear); Bacteria Urine Automated Negative (Negative); Bilirubin Urine Negative (Negative); Blood Urine Negative (Negative); Color Urine Yellow; Glucose Urine UA Negative (Negative); Ketones Urine Trace (Negative); Leukocyte Esterase Urine Negative (Negative); Nitrite Urine Negative (Negative); Protein Urine Trace (Negative); RBC Urine Automated 0-4 /hpf (0-4); Specific Gravity Urine 1.028 (1.000-1.030); Urobilinogen Urine Negative (Negative)
[2021-05-05 15:08] LABS: Partial Thromboplastin Ratio 1.7; Partial Thromboplastin Time 44.7 Seconds (21.0-31.0)
--- NOTE | 2021-05-05 15:09 | Electrocardiogram Report ---
Test Reason : Blood Pressure : / mmHG Vent. Rate : 088 BPM Atrial Rate : 088 BPM P-R Int : 184 ms QRS Dur : 102 ms QT Int : 362 ms P-R-T Axes : 059 020 036 degrees QTc Int : 438 ms Normal sinus rhythm Possible Inferior infarct , age undetermined Abnormal ECG When compared with ECG of 05-MAY-2021 02:06, (unconfirmed) No significant change was found Confirmed by Asael Mercer ([id number]) on 05/05/2021 3:08:58 PM Referred By: [facility] Confirmed By:Asael Mercer
[2021-05-05] MEDS ORDERED: LORazepam 0.5 MG TAB PO PRN (18:52)
[2021-05-05] MEDS: oxyCODONE HCL SOLN 5 MG/5 ML UDC PO PRN (19:23)
[2021-05-05 21:41] LABS: Partial Thromboplastin Ratio 1.4; Partial Thromboplastin Time 36.6 Seconds (21.0-31.0)
[2021-05-06] MEDS: MoRPHine SULFATE 4 MG/ML 1 ML CARP\\VIAL IV PRN ×4 (00:34→13:51)
[2021-05-06] MEDS: ACETAMINOPHEN 325 MG TAB PO PRN ×2 (02:22→14:58)
[2021-05-06 04:24] LABS: Hematocrit (blood only) 32.3 % (42-52); Hemoglobin 11.1 g/dL (14.0-18.0); Mean Corpuscular Hemoglobin 29.4 pg (25-34); Mean Corpuscular Hgb Conc 34.4 g/dL (32-36); Mean Corpuscular Volume 85.7 fL (80-100); Mean Platelet Volume 8.4 fL (7.4-10.4); Platelet Count 327 K/uL (130-400); RDW Coefficient of Variation 13.4 % (11.5-14.5); RDW Standard Deviation 42.2 fL (36.4-46.3); Red Blood Count 3.77 M/uL (4.7-6.1); White Blood Count 13.01 K/uL (4.8-10.8)
[2021-05-06 04:39] LABS: Calcium 8.7 mg/dl (8.5-10.1); Creatinine Clr Calc Pharmacy 102.5 ml/min; Est GFR (African American) 76.5 ml/min; Potassium 3.9 mmol/L (3.5-5.1)
[2021-05-06 05:04] LABS: Partial Thromboplastin Time 51.6 Seconds (21.0-31.0)
[2021-05-06] MEDS: oxyCODONE HCL SOLN 5 MG/5 ML UDC PO PRN ×2 (05:51→12:26)
--- NOTE | 2021-05-06 10:01 | Hospitalist Progress Note ---
Date of Service May 06, 2021 Assessment & Plan (1) Pulmonary embolism: Plan: - Admit to med surg with tele for monitoring - CT abd showing deep iliac and femoral DVT, Chest showing multiple areas of clot burden and RLL infarct as above - Currently VSS with O2 at 2L via NC, pt does not normally wear O2 - Coag panel pending as event for PE --- possible that this was prompted by sedentary lifestyle while in solitary confinement x 5 months up until 3 weeks ago as per HPI. He likely had DVT that traveled upward and now being seen in abd in internal, external and common iliac veins and moved throughout right and left lung, there is also a small pulmonary infarct seen in the right upper lobe. - Noted 7 mm cavitation in the RUL - will check quantiferon gold test to r/o TB as is a prisoner. - Continue on heparin gtt, plan to transition to NOAC - Check 2D echo - Continue morphine for SOB and pain - Continue supportive care with incentive spirometer and flutter. No leukocytosis, afebrile. Concern for pneumonitis on CT, also noted a 7 mm RUL internal cavitation ? inflammatory or infectious? - COVID negative on admission. pt denies hx of such and is vaccinated. - Unknown family hx of clotting disorder due to being adopted as a child (2) Acute respiratory failure with hypoxia: Plan: - Secondary to acute PE - Continue supplemental O2 and wean as tolerated - As above (3) Obesity (BMI 35.0-39.9 without comorbidity): Plan: - BMI of 38.0 - Diet and exercise to be encouraged (4) Creatinine elevation: Plan: - Cr is 1.4 on admission, likely elevated in the setting of acute illness versus chronic kidney disease, will trend with am labs to determine if JOSE or if chronic. (5) Bipolar I disorder: Plan: - Continue lithium 450 mg BID for mood stabilization and doxepin 200 mg for sleep - Pt reports last episode of arian was about 3 years ago - Continue propranolol 20 mg BID for psych - not for cardiac purposes. Pt denies cardiac history. DVT ppx: - teds, heparin drip CODE: Full code [facility], likely to remain in the hospital x 1-2 days Admission and Anticipated Discharge Date Admission Date: May 05, 2021 Supervising Physician Co-Signing Physician Notes 35 yo M with PMHx of obesity with BMI of 38.0, bipolar type I, remote smoking hx x 18 pack years, quit 3 years ago, who presents 05/05 to the hospital overnight with complaints of right belly pain exacerbated with deep breathing. Patient was in solitary confinement for 5 months up until 3 weeks ago [employer] when he was [facility] and reports that he has been in bed pretty much since last few months. Patient was found to have extensive pelvic DVT and PE. Likely secondary to immobility. Patient on heparin drip. Patient had component of JOSE which resolved. Since patient is adopted, not sure of any family history of blood clot. Patient did not have any history of blood clot in the past. Patient has right upper lobe cavitation, await QuantiFERON test. Admitting echo: EF 55 to 60% with normal diastolic function and normal right ventricular size and function. Troponinx1 negative. Patient reporting improvement in his pain, no pain with deep breathing now. Plan to transition him to room air and once his heart rate falls WNL, discharge him with Eliquis. Point of contact: [facility] is [facility] for Shivam Salcido. Please call . Ext [phone] is [address] physician office. Dr De La Cruz. Upon examination: GENERAL: Alert and oriented x3. NAD, on 2L. HEENT: No pallor, no icterus. Pupils equal, round and reactive to light. Oral mucosa moist. NECK: No JVD, no neck masses. HEART: S1 and S2 heard. Regular rate and rhythm. No murmur, no gallop. Tachycardic RESPIRATORY SYSTEM: Normal AP diameter. No accessory muscle use. No wheezing, no crackles. ABDOMEN: Soft, bowel sounds present, nontender, no distention. CENTRAL NERVOUS SYSTEM: No facial droop. Speech is clear. Obeys simple commands. Moves extremities. EXTREMITIES: No edema, no erythema seen. I have seen and examined the patient and have discussed the case with the provider above. I agree with the assessment and plan as stated. Results & Data Results & Data ([facility]) Vital Signs (Past 12 Hours) Vital Signs Temp Pulse Pulse Resp BP BP Pulse Ox 05/06/21 06:31 37.3 C 126 H 20 158/96 H 93 05/06/21 02:10 37.7 C H 123 H 20 125/80 92 05/05/21 23:57 126 H 05/05/21 23:22 37.5 C 127 H 20 135/87 93
--- NOTE | 2021-05-06 11:01 | Electrocardiogram Report ---
Test Reason : Blood Pressure : / mmHG Vent. Rate : 124 BPM Atrial Rate : 125 BPM P-R Int : 180 ms QRS Dur : 088 ms QT Int : 286 ms P-R-T Axes : 075 074 060 degrees QTc Int : 410 ms Sinus tachycardia Abnormal ECG When compared with ECG of 05-MAY-2021 06:28, Borderline criteria for Inferior infarct are no longer Present Confirmed by Mikael Chairez ([id number]) on 05/06/2021 11:01:29 AM Referred By: [facility] Confirmed By:Mikael Chairez
[2021-05-06] MEDS: HEPARIN SODIUM/DEXTROSE 25,000 UNITS/500 ML BAG IV SCH (13:54)
[2021-05-06] MEDS ORDERED: PIPERACILL/TAZOBAC CONSULT ACTIVE PRN (17:55)
[2021-05-06] MEDS ORDERED: KETOROLAC TROMETHAMINE 15 MG/ML VIAL IV PRN (17:56)
[2021-05-06] MEDS ORDERED: PIPERACILLIN/TAZOBACTAM 4.5 GM in DEXTROSE 5% 100 ML IV ONE (18:00)
[2021-05-06 18:29] LABS: Appearance Urine Clear (Clear); Bacteria Urine Automated Negative (Negative); Bilirubin Urine Negative (Negative); Blood Urine 1+ (Negative); Color Urine Yellow; Epithelial Cell Urine Auto 20-30 /lpf (0-5); Glucose Urine UA Negative (Negative); Ketones Urine Trace (Negative); Leukocyte Esterase Urine Negative (Negative); Nitrite Urine Negative (Negative); Protein Urine 2+ (Negative); RBC Urine Automated 0-4 /hpf (0-4); Specific Gravity Urine 1.018 (1.000-1.030); Urobilinogen Urine Negative (Negative)
[2021-05-06] MEDS: oxyCODONE/ACETAMINOPHEN 5mg/325mg TAB PO PRN (18:40)
--- NOTE | 2021-05-06 18:46 | XRay Report ---
XR chest 1V portable CLINICAL HISTORY: f/u CXR, developing fever TECHNIQUE: Single frontal radiograph of the chest was obtained. Comparison: Comparison is made to CTA chest 05/05/2021 FINDINGS: No lines and tubes are seen. The cardiomediastinal silhouette is normal. Bibasilar atelectasis is see n. There is a left retrocardiac opacity and blunting of the left costophrenic angle. No pneumothorax or right effusion is seen. IMPRESSION: Left retrocardiac opacity may represent atelectasis, pneumonia, and/or aspiration. There is a small l eft pleural effusion. ACT 112: Negative or not required by law. Electronically signed by: Melecio Dudley M.D. 05/06/2021 6:45 PM
[2021-05-07] MEDS ORDERED: PIPERACILLIN/TAZOBACTAM 4.5 GM in DEXTROSE 5% 100 ML IV SCH
[2021-05-07] MEDS: HEPARIN SODIUM/DEXTROSE 25,000 UNITS/500 ML BAG IV SCH ×2 (02:23→14:46)
[2021-05-07] MEDS: MoRPHine SULFATE 2 MG/ML CARP IV PRN ×3 (05:03→18:46)
[2021-05-07] MEDS: oxyCODONE/ACETAMINOPHEN 5mg/325mg TAB PO PRN ×3 (07:17→23:28)
[2021-05-07] MEDS ORDERED: KETOROLAC 30 MG/ML VIAL IV PRN (07:48)
--- NOTE | 2021-05-07 07:49 | Pulmonary Consultation ---
Date of Consultation May 07, 2021 Assessment & Plan (1) Pulmonary embolism: (2) Abnormal CT scan of lung: (3) Multiple pulmonary nodules: (4) Painful respiration: Impression: 35-year-old male inmate admitted with acute PE and likely pulmonary infarct. He has pleuritic chest pain likely secondary to the pulmonary infarcts. He is tachycardic but normotensive and echocardiogram shows no evidence of RV strain or secondary pulmonary hypertension. Has been initiated on anticoagulation. Zosyn was initiated by the primary service. Recommendations: 1. Pulmonary embolism: Continue anticoagulation. Given the extensive nature of the PE, lifelong anticoagulation is recommended. Hypercoagulable work-up has been ordered, however many of these studies will be abnormal in the setting of an acute clot and therefore not helpful in directing therapy. Given the extensive nature of the clot, lifelong anticoagulation would be recommended. Outpatient hematology consult can be considered. Defer choice of anticoagulants to the primary service in the custodial. 2. Pulmonary infarcts: The patient will be followed clinically. He is on analgesia. We will increase the Toradol to 30 mg and follow kidney function. Can use narcotics as well as needed. 3. Pulmonary nodule: I suspect this nodule is likely related to the PEs. He has no infectious symptomatology. His white count is elevated but that may be secondary to pulmonary infarcts. I do not think the patient requires Zosyn and this will be discontinued. We will check a procalcitonin. If it is normal think he can safely withhold antibiotics at this point time. Would recommend a follow-up CT scan in 3 months. 4. Hypoxemic respiratory failure: Continue supplemental oxygen titrated to keep saturations at or above 90%. We will follow up tomorrow. Feel free to contact us with questions or concerns History of Present Illness Attending Physician: Clarissa Garibay MD History of Present Illness Asked by hospitalist service to evaluate this patient admitted with PE and pulmonary infarct. CT scan showed a small nodule with questionable cavitation. History is obtained from review electronic medical record as well as discussion with the patient. Patient is a 35-year-old incarcerated male who presented to the hospital on the with acute onset of chest pain and shortness of breath. His only risk factor appears to be obesity. He is adopted so cannot provide any family history. He does describe a fairly sedentary lifestyle. In the emergency room he had a CT of the abdomen and pelvis showing internal and external iliac thrombosis. This was followed with CT angiogram demonstrating fairly extensive PE. He was tachycardic but normotensive. He has been initiated on heparin and was admitted to the hospital service. Pulmonary was consulted for the finding of pulmonary infarcts with 1 nodule showing questionable cavitation. Patient has history of tobacco abuse up until 3 years ago. He reports about a [id number] history. He does not report any fevers chills night sweats or other constitutional symptoms. He is not been exposed to tuberculosis that he is aware of. No travel. Again family history is unobtainable. No hematuria. His only complaint currently is the chest discomfort. Allergies Allergy/AdvReac Type Severity Reaction Status Date / Time No Known Allergies Allergy Verified 05/05/21 02:14 Home Medications Medication Instructions Recorded Confirmed Type artificial saliva (yerba adri and 2 spray MUCOUS MEMBRANE QID PRN 05/05/21 05/05/21 History lytes) spray (Mouth Kote) ciclesonide 80 mcg/actuation 1 puff INHALATION BID 05/05/21 05/05/21 History aerosol inhaler (Alvesco) doxepin 100 mg capsule 200 mg PO HS 05/05/21 05/05/21 History levalbuterol tartrate 45 2 inh INHALATION QID PRN 05/05/21 05/05/21 History mcg/actuation aerosol inhaler (Xopenex HFA) lithium carbonate 450 mg 450 mg PO BID 05/05/21 05/05/21 History tablet,extended release propranolol 20 mg tablet 20 mg PO BID 05/05/21 05/05/21 History Patient History Medical History Bipolar I disorder Creatinine elevation Pulmonary embolism Social History Smoking Status: Former smoker Second Hand Exposure: No; Do You Dip or Chew Tobacco: No; Tobacco Cessation Education Requested by Patient: No Hx Alcohol Use: No Hx Substance Use: No Preferred Language: Estonian Cellar Hand Required: No Beliefs That Will Affect Care: None Current Living Situation: Other Current Living Situation Comment: [facility] Other Information That Helps Us Care for You: No Feels Safe at Home: Yes Safety Concerns: Feels Safe At This Time Assistive Devices: None and Oxygen - Continuous Review of Systems Review of Systems: Please refer to admission H&P. I have no additions or deletions Physical Exam Constitutional: WD/WN, vitals as above Neck: trachea midline, no thyromegaly Respiratory: normal respiratory effort, lungs clear to auscultation Cardiovascular: Rate/Rhythm: + tachycardic Heart Sounds: normal S1 and normal S2; no gallop and no murmur Extremities: no edema Gastrointestinal (Abdomen): normal bowel sounds, soft, nontender, no hepatosplenomegaly Musculoskeletal: Extremities: extremities normal to inspection Skin: no rashes, warm and dry Neurologic: Nonfocal exam Lymphatic: no cervical lymphadenopathy Results & Data Results & Data ([facility]) Vital Signs (Past 12 Hours) Vital Signs Temp Pulse Resp BP Pulse Ox 05/06/21 23:18 36.6 C 101 H 18 137/81 96 Laboratory Results 05/06/21 04:15 05/06/21 04:15 Troponin undetectable Homocystine normal Diagnostic Findings Echocardiogram performed 05/05/2021 showed an EF of 55 to 60% without wall motion abnormalities. Normal diastolic dysfunction. Normal RV function and morphology. No pericardial effusion. CT angiogram independently reviewed. CT ANGIOGRAM OF THE CHEST CLINICAL HISTORY: Atypical left-sided chest pain, greatest with inspiration. COMPARISON STUDY: No priors. TECHNIQUE: Following the IV administration of 118 cc of Optiray 320, CT angiogram of the chest was performed from the upper abdomen to the thoracic inlet utilizing the pulmonary embolus protocol. Images are reviewed in the axial, sagittal, and coronal planes. 3-D MIPS images are created and assessed. IV contrast was administered without complication. A dose lowering technique was utilized adhering to the principles of ALARA. The examination is compromised by motion artifact. There is suboptimal contrast opacification of the pulmonary arteries. FINDINGS: Thyroid: Imaged portions of the thyroid gland are normal in size and attenuation. Thoracic aorta: The thoracic aorta is normal in caliber and demonstrates standard 3-vessel arch anatomy. No dissection is seen. Pulmonary vasculature: The pulmonary trunk is normal in caliber. There is thrombus within the distal right main pulmonary artery. This extends into the right upper, middle, and lower lobe pulmonary arteries into segmental and subse gmental branches. There is also thrombus within the distal left main pulmonary artery which extends into the left upper and left lower lobe branches. Segmental and subsegmental pulmonary are seen within branches of the left upper and lower lobe pulmonary arteries as well as within the lingula. Heart: The heart is normal in size and without pericardial effusion. Lungs and pleural spaces: Evaluation of the lung parenchyma is degraded by motion artifact. There is no pleural effusion. The trachea and central airways are clear. Patchy airspace consolidation is seen at the left lung base. Foci of scarring/atelectasis are seen throughout both lungs. A wedge-shaped focus of subpleural consolidation in the right upper lobe on image #150 likely represents a pulmonary infarct. A 7 mm nodular focus in the right upper lobe on image #151 shows minimal internal cavitation. Mediastinum: There is no mediastinal lymphadenopathy. Moraima: Clear. Axillae: There is no axillary lymphadenopathy. Upper abdomen: There is a small hiatal hernia. Partially visualized upper abdominal viscera is within normal limits. Skeletal structures: No lytic or blastic bony lesions are seen. IMPRESSION: 1. Extensive bilateral pulmonary embolus as above. 2. A small pulmonary infarct is seen in the right upper lobe. 3. Airspace consolidation at the left lung base could represent developing infarct and/or an infectious/inflammatory pneumonitis. Clinical correlation will be required. 4. A 7 mm nodular focus in the right upper lobe shows internal cavitation. This is nonspecific and could be on an inflammatory or infectious basis. 5. Additional findings as above. PG Care Time/CCT Total # of Minutes Spent Total Time Spent with Patient: Total time spent is greater than 50% in coordination of care (as documented) at patient's floor/unit and/or counseling patient: Coding Level of Care Code 32198 Inpt Consult Level 4 Diagnoses Pulmonary embolism I26.[address] scan of lung R91.8 Multiple pulmonary nodules R91.8 Painful respiration R07.1
[2021-05-07 08:16] LABS: Hematocrit (blood only) 32.6 % (42-52); Hemoglobin 10.7 g/dL (14.0-18.0); Mean Corpuscular Hemoglobin 28.4 pg (25-34); Mean Corpuscular Hgb Conc 32.8 g/dL (32-36); Mean Corpuscular Volume 86.5 fL (80-100); Mean Platelet Volume 8.7 fL (7.4-10.4); Platelet Count 367 K/uL (130-400); RDW Coefficient of Variation 13.3 % (11.5-14.5); RDW Standard Deviation 42.5 fL (36.4-46.3); Red Blood Count 3.77 M/uL (4.7-6.1); White Blood Count 12.34 K/uL (4.8-10.8)
[2021-05-07 08:37] LABS: Partial Thromboplastin Ratio 1.8
[2021-05-07 08:43] LABS: BUN Creatinine Ratio 8.2 (10-20); Calcium 9.3 mg/dl (8.5-10.1); Creatinine Clr Calc Pharmacy 104.9 ml/min; Est GFR (African American) 77.2 ml/min; Est GFR (Non-African American) 66.6 ml/min; Magnesium 2.3 mg/dl (1.8-2.4); Potassium 3.7 mmol/L (3.5-5.1)
[2021-05-07 09:01] LABS: Partial Thromboplastin Time 47.2 Seconds (21.0-31.0)
--- NOTE | 2021-05-07 15:00 | Hospitalist Progress Note ---
Date of Service May 07, 2021 Assessment & Plan (1) Pulmonary embolism: (2) Acute respiratory failure with hypoxia: Plan: 35 yo M with PMHx of obesity with BMI of 38.0, bipolar type I, remote smoking hx x 18 pack years, quit 3 years ago, who presents 05/05 to the hospital overnight with complaints of right belly pain exacerbated with deep breathing. 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 and reports that he has been in bed pretty much since last few months. Patient was found to have extensive pelvic DVT and PE. Likely secondary to immobility. Patient on heparin drip. Patient had component of JOSE which resolved. Since patient is adopted, not sure of any family history of blood clot. Patient did not have any history of blood clot in the past. Patient has right upper lobe cavitation, await QuantiFERON test. Admitting echo: EF 55 to 60% with normal diastolic function and normal right ventricular size and function. Troponinx1 negative. Patient reporting improvement in his pain, no pain with deep breathing now. Plan to transition him to room air and once his heart rate falls WNL, discharge him with Eliquis. #. Pulmonary embolism: #. Concern for infectious process likely pneumonia Patient presented with right belly pain, found to have extensive DVT in the ED. Likely secondary to immobility in the preceding months. Patient is adopted, not sure of any family history of blood clot. No personal history of blood clot. Admitting CTAP positive for DVT in the internal and external iliac veins. Admitting CTA chest: Extensive B/L PE with a small pulmonary infarct in RUL, airspace consolidation at LLL [query infectious], RUL 7 mm nodular focus with internal cavitation. Admitting echo with EF of 55 to 60% with normal diastolic function and normal right ventricular size and function. Admitting troponin negative. Covid negative. Patient vaccinated. Patient denies of long-term low-grade fever and chronic cough, due to concern of right upper lobe cavitation, QuantiFERON test has been sent. Patient had temperature up to 39.4C on 05/06, CXR/UA/blood culture/pro-Skyler sent. Pro-Skyler negative. WBC moderately elevated. CXR positive for left retrocardiac opacity (questionable infectious process) with small left pleural effusion. Await blood culture. Patient started on Zosyn 05/06, pulmonology consulted Pulmonology on board: Continue anticoagulation x lifelong, outpatient hematology , suspects infectious process, Zosyn DC'd. Follow-up CT scan in 3 months. Coagulation profile sent, would not filter changer much. Patient started on heparin drip, continue with the drip. Transition to Eliquis upon discharge. Patient tachycardic, pain over left lower thorax and deep breathing, as needed pain medications, continue to monitor. Requiring supplemental oxygen, titrate down as tolerated. #. Acute respiratory failure with hypoxia: - Secondary to acute PE - Continue supplemental O2 and wean as tolerated - As above #. Obesity (BMI 35.0-39.9 without comorbidity): - BMI of 38.0 - Diet and exercise to be encouraged #. Creatinine elevation: - Cr is 1.4 on admission, likely elevated in the setting of acute illness versus chronic kidney disease. Resolved #. Mild hyponatremia Admitting sodium 134, baseline unknown, fairly stable TSH normal We will continue to monitor #. Bipolar I disorder: - Continue lithium 450 mg BID for mood stabilization and doxepin 200 mg for sleep - Pt reports last episode of arian was about 3 years ago - Continue propranolol 20 mg BID for psych - not for cardiac purposes. Pt denies cardiac history. DVT ppx: - teds, heparin drip CODE: Full code Dispo: From [place] [facility], likely to remain in the hospital x 1-2 days Point of contact: [facility] for Shivam Salcido. Please call . Ext [phone] is the physician office. Dr De La Cruz. Admission and Anticipated Discharge Date Admission Date: May 05, 2021 Subjective Patient was sitting up in bed, on 2 L nasal cannula oxygen, NAD, looking ill, patient reports left lower chest pain upon deep breathing and dry cough, denies fevers feeling/headache/other review of symptoms. Physical Exam Physical Exam: GENERAL: Alert and oriented x3. NAD, on 2L. generally ill looking HEENT: No pallor, no icterus. Pupils equal, round and reactive to light. Oral mucosa moist. NECK: No JVD, no neck masses. HEART: S1 and S2 heard. Regular rate and rhythm. No murmur, no gallop. Tachycardic RESPIRATORY SYSTEM: Normal AP diameter. No accessory muscle use. No wheezing, no crackles. Decreased bibasilar breath sounds. Dry cough ABDOMEN: Soft, bowel sounds present, nontender, no distention. CENTRAL NERVOUS SYSTEM: No facial droop. Speech is clear. Obeys simple commands. Moves extremities. EXTREMITIES: No edema, no erythema seen. Results & Data Results & Data ([facility]) Vital Signs (Past 12 Hours) Vital Signs Temp Pulse Pulse Resp BP Pulse Ox 05/07/21 14:42 37 C 139 H 18 139/96 96 05/07/21 08:05 37.3 C 127 H 16 133/87 97 05/07/21 07:40 124 H
[2021-05-07] MEDS: ACETAMINOPHEN 325 MG TAB PO PRN (23:28)
[2021-05-08] MEDS: HEPARIN SODIUM/DEXTROSE 25,000 UNITS/500 ML BAG IV SCH ×5 (02:56→14:57)
[2021-05-08] MEDS: MoRPHine SULFATE 2 MG/ML CARP IV PRN ×4 (02:57→23:51)
[2021-05-08] MEDS: oxyCODONE/ACETAMINOPHEN 5mg/325mg TAB PO PRN ×3 (07:07→20:12)
[2021-05-08 07:10] LABS: Hematocrit (blood only) 30.3 % (42-52); Mean Corpuscular Hemoglobin 28.3 pg (25-34); Mean Corpuscular Volume 85.8 fL (80-100); Mean Platelet Volume 8.5 fL (7.4-10.4); Platelet Count 381 K/uL (130-400); RDW Coefficient of Variation 13.6 % (11.5-14.5); RDW Standard Deviation 43.4 fL (36.4-46.3); Red Blood Count 3.53 M/uL (4.7-6.1); White Blood Count 9.15 K/uL (4.8-10.8)
[2021-05-08 07:20] LABS: Partial Thromboplastin Ratio 1.6; Partial Thromboplastin Time 42.8 Seconds (21.0-31.0)
[2021-05-08 07:44] LABS: BUN Creatinine Ratio 9.1 (10-20); Calcium 9.2 mg/dl (8.5-10.1); Creatinine Clr Calc Pharmacy 112.2 ml/min; Est GFR (African American) 83.9 ml/min; Est GFR (Non-African American) 72.4 ml/min; Potassium 3.6 mmol/L (3.5-5.1)
[2021-05-08] MEDS ORDERED: AZITHROMYCIN 500 MG in DEXTROSE 5% 250 ML IV ONE (09:45)
[2021-05-08] MEDS: cefTRIAXone SODIUM 2,000 MG in DEXTROSE 5% 50 ML IV SCH (09:50)
[2021-05-08] MEDS: POLYETHYLENE (MIRALAX) 17 GM PACK PO SCH (10:39)
[2021-05-08] MEDS: DOCUSATE SODIUM 100 MG CAP PO SCH ×2 (10:52→20:17)
--- NOTE | 2021-05-08 13:31 | Pulmonology Progress Note ---
Date of Service May 08, 2021 Assessment & Plan (1) Pulmonary embolism: (2) Abnormal CT scan of lung: (3) Multiple pulmonary nodules: (4) Painful respiration: Plan: Impression: 35-year-old male inmate admitted with acute PE and likely pulmonary infarct. He has pleuritic chest pain likely secondary to the pulmonary infarcts. He is tachycardic but normotensive and echocardiogram shows no evidence of RV strain or secondary pulmonary hypertension. Has been initiated on anticoagulation. Zosyn was initiated by the primary service. Recommendations: 1. Pulmonary embolism: Continue anticoagulation. Given the extensive nature of the PE, lifelong anticoagulation is recommended. Hypercoagulable work-up has been ordered, however many of these studies will be abnormal in the setting of an acute clot and therefore not helpful in directing therapy. Given the extensive nature of the clot, lifelong anticoagulation would be recommended. Outpatient hematology consult can be considered. Defer choice of anticoagulants to the primary service in the snf. 2. Pulmonary infarcts: The patient will be followed clinically. He is on analgesia. No response to toradol so will discontinue. Pain management per primary service 3. Pulmonary nodule: I suspect this nodule is likely related to the PEs. He has no infectious symptomatology. Would recommend a follow-up CT scan in 3 months. Procalcitonin is mildly elevated. May be reasonable to complete short course of a azithromycin. The patient's been deescalated to azithromycin and Rocephin which should be adequate. Can transition to oral antibiotics at this point time. Would treat for 5 days. 4. Hypoxemic respiratory failure: Continue supplemental oxygen titrated to keep saturations at or above 90%. Patient appears to be doing reasonably well clinically. Pulmonary will sign off at this point time. Feel free to contact us if we can be of additional assistance Admission and Anticipated Discharge Date Admission Date: May 05, 2021 Review of Systems Review of Systems: All systems reviewed & are unremarkable except as noted in Subjective Physical Exam Constitutional: WD/WN, vitals as above Neck: trachea midline, no thyromegaly Respiratory: normal respiratory effort, lungs clear to auscultation Cardiovascular: Rate/Rhythm: + tachycardic Heart Sounds: normal S1 and normal S2; no gallop and no murmur Extremities: no edema Gastrointestinal (Abdomen): normal bowel sounds, soft, nontender, no hepatosplenomegaly Musculoskeletal: Extremities: extremities normal to inspection Skin: no rashes, warm and dry Lymphatic: no cervical lymphadenopathy Results & Data Results & Data ([facility]) Vital Signs (Past 12 Hours) Vital Signs Temp Pulse Pulse Resp BP Pulse Ox 05/08/21 07:51 37.0 C 18 133/81 95 05/08/21 07:35 103 H 05/08/21 04:07 123 H 05/08/21 03:40 36.6 C 107 H 16 129/85 95 Laboratory Results 05/08/21 06:40 05/08/21 06:40 PCT 0.68 up from 0.38 Diagnostic Findings no new imaging PG Care Time/CCT Total # of Minutes Spent Total Time Spent with Patient: Total time spent is greater than 50% in coordination of care (as documented) at patient's floor/unit and/or counseling patient: Coding Level of Care Code 50943 Subseq Hosp Care Lvl 2 Diagnoses Pulmonary embolism I26.[address] scan of lung R91.8 Multiple pulmonary nodules R91.8 Painful respiration R07.1
[2021-05-08 14:19] LABS: Partial Thromboplastin Ratio 1.7; Partial Thromboplastin Time 43.9 Seconds (21.0-31.0)
--- NOTE | 2021-05-08 16:28 | Hospitalist Progress Note ---
Date of Service May 08, 2021 Assessment & Plan (1) Pulmonary embolism: (2) Acute respiratory failure with hypoxia: Plan: 35 yo M with PMHx of obesity with BMI of 38.0, bipolar type I, remote smoking hx x 18 pack years, quit 3 years ago, who presents 05/05 to the hospital overnight with complaints of right belly pain exacerbated with deep breathing. 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 and reports that he has been in bed pretty much since last few months. Patient was found to have extensive pelvic DVT and PE. Likely secondary to immobility. Patient on heparin drip. Patient had component of JOSE which resolved. Since patient is adopted, not sure of any family history of blood clot. Patient did not have any history of blood clot in the past. Patient has right upper lobe cavitation, await QuantiFERON test. Admitting echo: EF 55 to 60% with normal diastolic function and normal right ventricular size and function. Troponinx1 negative. Patient reporting improvement in his pain, no pain with deep breathing now. Plan to transition him to room air and once his heart rate falls WNL, discharge him with Eliquis. #. Pulmonary embolism: #. Concern for infectious process likely pneumonia Patient presented with right belly pain, found to have extensive DVT in the ED. Likely secondary to immobility in the preceding months. Patient is adopted, not sure of any family history of blood clot. No personal history of blood clot. Admitting CTAP positive for DVT in the internal and external iliac veins. Admitting CTA chest: Extensive B/L PE with a small pulmonary infarct in RUL, airspace consolidation at LLL [query infectious], RUL 7 mm nodular focus with internal cavitation. Admitting echo with EF of 55 to 60% with normal diastolic function and normal right ventricular size and function. Admitting troponin negative. Covid negative. Patient vaccinated. Patient denies of long-term low-grade fever and chronic cough, due to concern of right upper lobe cavitation, QuantiFERON test has been sent. Patient had temperature up to 39.4C on 05/06, CXR/UA/blood culture/pro-Skyler sent. Pro-Skyler negative. WBC moderately elevated. CXR positive for left retrocardiac opacity (questionable infectious process) with small left pleural effusion. Aw ait blood culture. 05/06 Zosyn --> later DC'd 05/07 --> 05/08 Rocephin and Zithro --> transition to oral on 05/09. Pulmonology on board: Continue anticoagulation x lifelong, outpatient hematology , Follow-up CT scan in 3 months. 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 Patient started on heparin drip, continue with the drip. Transition to Eliquis upon discharge. Patient tachycardic, continuing pain over left lower thorax and deep breathing, as needed pain medications, continue to monitor. Requiring supplemental oxygen, titrate down as tolerated. #. Acute respiratory failure with hypoxia: - Secondary to acute PE and likely pna - Continue supplemental O2 and wean as tolerated; c/w PNA Rx. - As above #. Obesity (BMI 35.0-39.9 without comorbidity): - BMI of 38.0 - Diet and exercise to be encouraged #. Creatinine elevation: - Cr is 1.4 on admission, likely elevated in the setting of acute illness versus chronic kidney disease. Resolved #. Mild hyponatremia Admitting sodium 134, baseline unknown, fairly stable TSH normal We will continue to monitor #. Bipolar I disorder: - Continue lithium 450 mg BID for mood stabilization and doxepin 200 mg for sleep - Pt reports last episode of arian was about 3 years ago - Continue propranolol 20 mg BID for psych - not for cardiac purposes. Pt denies cardiac history. DVT ppx: - teds, heparin drip CODE: Full code Dispo: From [place] [facility], likely to remain in the hospital x 1-2 days Point of contact: [facility]am Salcido. Please call [phone]. Ext [phone] is the physician office. Dr De La Cruz. Admission and Anticipated Discharge Date Admission Date: May 05, 2021 Subjective Patient was sitting up in bed, on 2 L nasal cannula oxygen, NAD, looking better than yesterday but still ill looking, patient reports continuing left lower chest pain upon deep breathing and dry cough, denies fevers feeling/headache/other review of symptoms. Physical Exam Physical Exam: GENERAL: Alert and oriented x3. NAD, on 2L. generally ill looking HEENT: No pallor, no icterus. Pupils equal, round and reactive to light. Oral mucosa moist. NECK: No JVD, no neck masses. HEART: S1 and S2 heard. Regular rate and rhythm. No murmur, no gallop. Tachycardic RESPIRATORY SYSTEM: Normal AP diameter. No accessory muscle use. No wheezing, no crackles. Decreased bibasilar breath sounds. Dry cough ABDOMEN: Soft, bowel sounds present, nontender, no distention. CENTRAL NERVOUS SYSTEM: No facial droop. Speech is clear. Obeys simple commands. Moves extremities. EXTREMITIES: No edema, no erythema seen. No CVA tenderness. Results & Data Results & Data ([facility]) Vital Signs (Past 12 Hours) Vital Signs Temp Pulse Pulse Resp BP Pulse Ox 05/08/21 16:03 123 H 05/08/21 15:24 36.9 C 121 H 18 143/81 H 96 05/08/21 07:51 37.0 C 18 133/81 95 05/08/21 07:35 103 H
[2021-05-08 21:34] LABS: Partial Thromboplastin Ratio 1.6; Partial Thromboplastin Time 42.2 Seconds (21.0-31.0)
[2021-05-08 23:36] LABS: Factor 5 Mutation NEGATIVE
[2021-05-09] MEDS: HEPARIN SODIUM/DEXTROSE 25,000 UNITS/500 ML BAG IV SCH ×2 (01:55→09:57)
[2021-05-09] MEDS: oxyCODONE/ACETAMINOPHEN 5mg/325mg TAB PO PRN ×4 (02:40→21:51)
[2021-05-09 04:22] LABS: Hematocrit (blood only) 29.3 % (42-52); Hemoglobin 9.5 g/dL (14.0-18.0); Mean Corpuscular Hemoglobin 28.1 pg (25-34); Mean Corpuscular Hgb Conc 32.4 g/dL (32-36); Mean Corpuscular Volume 86.7 fL (80-100); Mean Platelet Volume 8.2 fL (7.4-10.4); Platelet Count 379 K/uL (130-400); RDW Coefficient of Variation 13.7 % (11.5-14.5); RDW Standard Deviation 43.6 fL (36.4-46.3); Red Blood Count 3.38 M/uL (4.7-6.1); White Blood Count 7.95 K/uL (4.8-10.8)
[2021-05-09 04:38] LABS: Est GFR (African American) 94.7 ml/min; Est GFR (Non-African American) 81.7 ml/min; Potassium 3.3 mmol/L (3.5-5.1)
[2021-05-09 04:41] LABS: Partial Thromboplastin Ratio 1.8
[2021-05-09 04:42] LABS: Partial Thromboplastin Time 46.6 Seconds (21.0-31.0)
[2021-05-09] MEDS: MoRPHine SULFATE 2 MG/ML CARP IV PRN ×3 (06:02→18:11)
[2021-05-09] MEDS ORDERED: POTASSIUM CHLORIDE CRTAB 20 MEQ TABCR PO STA ×2 (07:51→12:12)
[2021-05-09] MEDS: APIXABAN 5 MG TABLET PO SCH ×2 (08:47→21:50)
[2021-05-09] MEDS: DOCUSATE SODIUM 100 MG CAP PO SCH ×2 (08:51→21:50)
[2021-05-09] MEDS: POLYETHYLENE (MIRALAX) 17 GM PACK PO SCH (08:53)
[2021-05-09] MEDS ORDERED: AZITHROMYCIN 250 MG in DEXTROSE 5% 250 ML IV SCH ×2 (09:00→12:00)
[2021-05-09] MEDS ORDERED: MAGNESIUM HYDROXIDE SUSP 30 ML UDC PO ONE (09:03)
[2021-05-09] MEDS: cefTRIAXone SODIUM 2,000 MG in DEXTROSE 5% 50 ML IV SCH (09:03)
[2021-05-09] MEDS ORDERED: MAGNESIUM HYDROXIDE SUSP 30 ML UDC PO PRN (09:03)
[2021-05-09] MEDS: AZITHROMYCIN 250 MG TAB PO SCH (09:12)
[2021-05-09] MEDS: LIDOCAINE 5% 1 PATCH TD SCH (10:16)
--- NOTE | 2021-05-09 10:58 | Hospitalist Progress Note ---
Date of Service May 09, 2021 Assessment & Plan (1) Pulmonary embolism: (2) Acute respiratory failure with hypoxia: Plan: 35 yo M with PMHx of obesity with BMI of 38.0, bipolar type I, remote smoking hx x 18 pack years, quit 3 years ago, who presents 05/05 to the hospital overnight with complaints of right belly pain exacerbated with deep breathing. 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 Acute hypoxic respiratory failure Pulmonary embolism: Concern for infectious process likely pneumonia RUL Cavitation Patient presented with right belly pain, found to have extensive DVT in the ED. Likely secondary to immobility in the preceding months. Patient is adopted, not sure of any family history of blood clot. No personal history of blood clot. CTAP positive for DVT in the internal and external iliac veins. CTA chest: Extensive B/L PE with a small pulmonary infarct in RUL, airspace consolidation at LLL [query infectious], RUL 7 mm nodular focus with internal cavitation. Echo : EF 55 to 60% with normal diastolic function and normal right ventricular size and function. Trop negative. Covid negative. Patient vaccinated. QuantiFERON test has been pending given cavitation Hypercoagulable work-up pending Chest x-ray: Positive for left retrocardiac opacity, questionable infectious process with small left pleural effusion procalcitonin 0.68 on 05/08 Pulmonology on board Initially placed on broad-spectrum IV Zosyn on 05/06 and deescalated on 05/08 to Rocephin and azithromycin Per pulmonology okay to transition to oral antibiotics Will transition to azithromycin to 50 mg oral for additional 4 days, continue IV Rocephin while inpatient and transition to oral at discharge Discontinue IV heparin, start Eliquis 10 mg twice daily x7 days and then 5 mg twice daily lifelong Will need outpatient hematology evaluation Follow-up CT scan in 3 months Continue supplemental oxygen, wean as able Add lidocaine patch for pain control, on oxycodone and morphine as needed Obesity (BMI 35.0-39.9 without comorbidity): BMI 39.6 diet and exercise to be encouraged JOSE In setting of acute illness, PE and pneumonia Resolved, creatinine peak 1.4 BUN/creatinine 11 and 1.14 today Hypokalemia Replace Anemia H&H 9.5 and 29.3, normal indices Unknown baseline, likely dilutional Cumulative intake 9380 mL, output 3850 mL He has had increased weight from 127.1kg to 132.6 kg Obtain anemia panel in a.m., vomiting is doing better Mild hyponatremia, chronic continues to be 134, monitor TSH normal Bipolar I disorder: Continue lithium 450 mg BID for mood stabilization and doxepin 200 mg for sleep Pt reports last episode of arian was about 3 years ago Continue propranolol 20 mg BID for psych - not for cardiac purposes. Pt denies cardiac history. Constipation continue docusate no BM in 5 days, give MOM x 1 today start miralax daily given lack of mobility and narcotic use Elevated fasting glucose elevated throughout admission obtain a1c in a.m. DVT ppx: angela contreras CODE: Full code Dispo: From [facility], still requiring 2L of O2, HR improving, dispo uncertain at this time Point of contact: [facility] is fdc for Shivam Salcido. Please call [phone]. Ext [phone] is the physician office. Dr De La Cruz. Admission and Anticipated Discharge Date Admission Date: May 05, 2021 Supervising Physician Co-Signing Physician Notes 35 yo M with PMHx of obesity with BMI of 38.0, bipolar type I, remote smoking hx x 18 pack years, quit 3 years ago, who presents 05/05 to the hospital overnight with complaints of right belly pain exacerbated with deep breathing. 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 Patient was found to have extensive pelvic DVT and PE. Likely secondary to immobility. Admitting echo: EF 55 to 60% with normal diastolic function and normal right ventricular size and function. Troponinx1 negative. Patient initially on heparin drip --> transitioned to eliquis 10 mg BID x 7 days then 5 mg BID lifelong. Patient doesn't have any prior history of blood clot. Since patient is adopted, not sure of any family history of blood clot. Patient developed LLL pneumonia and is being managed with ATB, afebrile currently, continue for 5-7 days. Patient had component of JOSE which resolved. Patient has right upper lobe cavitation, await QuantiFERON test. Patient still complaining of Left lower chest pain with deep breathing, will get CXR in AM, continue to follow. Expect DC when HR settles down wnl stably. Upon exam, decreased breath sounds left lower lung, 1+ bilateral lower extremity edema, on 2 L nasal cannula oxygen, no CVA tenderness. I have seen and examined the patient and have discussed the case with the kezia fischer above. I agree with the assessment and plan as stated. Subjective Patient was seen and examined in 280 bed 1 with guards at bedside. Follow-up hypoxia in setting of extensive pulmonary embolism and possible pneumonia. Patient complains of pain to left lateral chest wall, worse with inspiration. Pain has been staying the same and not improving despite narcotics. He also complains of no bowel movement in 5 days. Complains of increased abdominal distention, decreased flatus. He denies any nausea, vomiting and is tolerating diet. He does have a mild intermittent dry cough. He denies fever, chills, sweats, lightheadedness, dizziness, abdominal pain, dysuria or increased urination. Discussed with nursing at bedside who confirms no BM in 5 days. Also reiterates pain uncontrolled. Review of Systems Review of Systems: All systems reviewed & are unremarkable except as noted in HPI & below Physical Exam Physical Exam: Gen: WD/WN, morbidly obese, male, NAD, A&O x3 HEENT: Normocephalic, atraumatic, conjunctivae moist, sclerae anicteric, mucous membranes moist. Lung: Clear to Auscultation bilaterally, no wheezes/rales/rhonchi, pain with inspiration to left lateral wall Heart: Tachycardic rate, regular rhythm, no murmurs, rubs, or gallops Abdomen: Distended, protuberant, firm, NT, decreased bowel sounds Extremities: No edema Skin: Warm, no rash, negative turgor. Results & Data Results & Data ([facility]) Vital Signs (Past 12 Hours) Vital Signs Temp Pulse Pulse Resp BP Pulse Ox 05/09/21 07:00 104 H 05/09/21 06:47 36.9 C 107 H 18 125/73 95 05/09/21 04:51 37.0 C 108 H 18 131/72 94 05/09/21 00:10 109 H 05/08/21 22:41 36.9 C 124 H 18 157/81 H 96 Laboratory Results Short CBC 05/09/21 Range/Units 04:09 WBC 7.95 (4.8-10.8) K/uL Hgb 9.5 L (14.0-18.0) g/dL Hct 29.3 L (42-52) % Plt Count 379 (130-400) K/uL BMP 05/09/21 04:09 Sodium 134 L Potassium 3.3 L Chloride 100 Carbon Dioxide 28 BUN 11 Creatinine 1.14 Glucose 127 H Calcium 9.0 Medications Administered Current Inpatient Medications Acetaminophen (Acetaminophen 325 Mg Tab) 650 mg PO Q4H PRN PRN Reason: Pain or Fever Stop: 06/04/21 11:10 Last Admin: 05/07/21 23:28 Dose: 650 mg Documented by: Apixaban (Apixaban 5 Mg Tablet) 10 mg PO BID [facility] Stop: 05/15/21 21:01 Last Admin: 05/09/21 08:47 Dose: 10 mg Documented by: Azithromycin (Azithromycin 250 Mg Tab) 250 mg PO [facility] Stop: 05/13/21 08:59 Last Admin: 05/09/21 09:12 Dose: 250 mg Documented by: Docusate Sodium (Docusate Sodium 100 Mg Cap) 100 mg PO BID [facility] Stop: 05/09/21 21:01 Last Admin: 05/09/21 08:51 Dose: 100 mg Documented by: Ceftriaxone Sodium 2,000 mg/ (Dextrose) 70 mls @ 100 mls/hr IV Q24H [facility]; Protocol Stop: 05/15/21 09:59 Last Infusion: 05/09/21 09:56 Dose: Infused Documented by: Lidocaine (L[facility]ocaine 5% 1 Patch) [facility] Stop: 06/08/21 09:14 Last Admin: 05/09/21 10:16 Dose: 1 patch Documented by: Magnesium Hydroxide (Magnesium Hydroxide Susp 30 Ml Udc) 30 ml PO Q6H PRN PRN Reason: Constipation Stop: 06/08/21 09:02 Miscellaneous (Remove Lidoderm Patch) 1 ea N/A DAILY@2100 [facility] Stop: 06/08/21 20:59 Morphine Sulfate (Morphine Sulfate 2 Mg/Ml Carp) 2 mg IV Q6H PRN PRN Reason: Pain Stop: 05/19/21 09:36 Last Admin: 05/09/21 06:02 Dose: 2 mg Documented by: Ondansetron HCl (Ondansetron Inj 2 Mg/Ml 2 Ml Vial) 4 mg IV Q6H PRN PRN Reason: Nausea Stop: 06/04/21 11:10 Oxycodone/Acetaminophen (Oxycodone/Acetaminophen 5mg/325mg Tab) 2 tab PO Q6H PRN PRN Reason: Pain Stop: 05/20/21 15:29 Last Admin: 05/09/21 08:50 Dose: 2 tab Documented by: Polyethylene Glycol (Polyethylene (Miralax) 17 Gm Pack) 17 gm PO DAILY [facility] Stop: 06/07/21 10:29 Last Admin: 05/09/21 08:53 Dose: 17 gm Documented by:
[2021-05-09] MEDS ORDERED: FUROSEMIDE 20 MG in SYRINGE 0 ML IV ONE (12:30)
[2021-05-09 15:06] LABS: Quantiferon Mitogen-NIL >10.00 IU/mL; Quantiferon NIL 0.04 IU/mL; Quantiferon TB Gold Plus NEGATIVE (NEGATIVE); Quantiferon TB1-NIL 0.01 IU/mL; Quantiferon TB2-NIL <0.00 IU/mL
[2021-05-10] MEDS: MoRPHine SULFATE 2 MG/ML CARP IV PRN ×3 (00:10→13:34)
[2021-05-10 01:02] LABS: Anti Cardiolipin Ab IgG <2.0 GPL-U/mL; Anti Cardiolipin Ab IgM <2.0 MPL-U/mL
[2021-05-10] MEDS: ACETAMINOPHEN 325 MG TAB PO PRN (02:44)
[2021-05-10] MEDS: oxyCODONE/ACETAMINOPHEN 5mg/325mg TAB PO PRN ×3 (03:51→19:49)
[2021-05-10 05:35] LABS: Hematocrit (blood only) 28.8 % (42-52); Hemoglobin 9.7 g/dL (14.0-18.0); Mean Corpuscular Hemoglobin 29.1 pg (25-34); Mean Corpuscular Hgb Conc 33.7 g/dL (32-36); Mean Corpuscular Volume 86.5 fL (80-100); Mean Platelet Volume 8.2 fL (7.4-10.4); Platelet Count 407 K/uL (130-400); RDW Coefficient of Variation 13.9 % (11.5-14.5); RDW Standard Deviation 44.2 fL (36.4-46.3); Red Blood Count 3.33 M/uL (4.7-6.1); White Blood Count 6.94 K/uL (4.8-10.8)
[2021-05-10 05:49] LABS: Partial Thromboplastin Ratio 1.2; Partial Thromboplastin Time 31.9 Seconds (21.0-31.0)
[2021-05-10 05:58] LABS: B2 Glycoprotein IgG <2.0 U/mL (<20.0); B2 Glycoprotein IgM <2.0 U/mL (<20.0); Protein S Functional(Activity) 84 % (70-150)
[2021-05-10 06:13] LABS: BUN Creatinine Ratio 11.2 (10-20); Calcium 9.7 mg/dl (8.5-10.1); Creatinine Clr Calc Pharmacy 130.2 ml/min; Est GFR (African American) 98.9 ml/min; Est GFR (Non-African American) 85.3 ml/min; Potassium 3.9 mmol/L (3.5-5.1)
[2021-05-10 06:33] LABS: Folate (Folic Acid) 11.2 ng/ml (>5.38)
[2021-05-10] MEDS ORDERED: LACTULOSE SYRUP 30 GM/45 ML UDP PO STA (07:24)
[2021-05-10] MEDS: AZITHROMYCIN 250 MG TAB PO SCH (08:33)
[2021-05-10] MEDS: APIXABAN 5 MG TABLET PO SCH ×2 (08:33→19:50)
[2021-05-10] MEDS: LIDOCAINE 5% 1 PATCH TD SCH (08:33)
[2021-05-10] MEDS: POLYETHYLENE (MIRALAX) 17 GM PACK PO SCH (08:34)
[2021-05-10 08:46] LABS: Estimated Average Glucose 117 mg/dl; Hemoglobin A1C 5.7 % (4.5-5.6)
--- NOTE | 2021-05-10 09:04 | XRay Report ---
XR chest 1V portable HISTORY: f/u CXR, left lower lobe dec breath sounds and persisting pain COMPARISON: Chest 05/06/2021. FINDINGS: No pneumothorax. There are low lung volumes. The heart remains borderline enlarged. No evid ence for pulmonary edema. Left basilar airspace opacities persist. Linear densities within the right lung base have slightly improved. IMPRESSION: 1. Low lung volumes with persistent left basilar airspace opacities. 2. Slight improved aeration within the right lower lobe linear densities. ACT 112: Negative or not required by law. Electronically signed by: Mj Dozier M.D. 05/10/2021 9:02 AM
[2021-05-10] MEDS: cefTRIAXone SODIUM 2,000 MG in DEXTROSE 5% 50 ML IV SCH (09:59)
[2021-05-10] MEDS ORDERED: ARTIFICIAL SALIVA MUCOUS MEMBRANE PRN (12:09)
--- NOTE | 2021-05-10 15:18 | Hospitalist Progress Note ---
Date of Service May 10, 2021 Assessment & Plan (1) Pulmonary embolism: (2) Acute respiratory failure with hypoxia: (3) Prediabetes: Plan: 35 yo M with PMHx of obesity with BMI of 38.0, bipolar type I, remote smoking hx x 18 pack years, quit 3 years ago, who presents 05/05 to the hospital overnight with complaints of right belly pain exacerbated with deep breathing. 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 and reports that he has been in bed pretty much since last few months. Acute hypoxic respiratory failure Pulmonary embolism: Concern for infectious process likely pneumonia RUL Cavitation Patient presented with right belly pain, found to have extensive DVT in the ED. Likely secondary to immobility in the preceding months. Patient is adopted, not sure of any family history of blood clot. No personal history of blood clot. CTAP positive for DVT in the internal and external iliac veins. CTA chest: Extensive B/L PE with a small pulmonary infarct in RUL, airspace consolidation at LLL [query infectious], RUL 7 mm nodular focus with internal cavitation. Echo : EF 55 to 60% with normal diastolic function and normal right ventricular size and function. Trop negative. Covid negative. Patient vaccinated. QuantiFERON test negative in setting of cavitation Hypercoagulable work-up pending Chest x-ray: Positive for left retrocardiac opacity, questionable infectious process with small left pleural effusion procalcitonin 0.68 on 05/08 Pulmonology on board Initially placed on broad-spectrum IV Zosyn on 05/06 and deescalated on 05/08 to Rocephin and azithromycin Per pulmonology okay to transition to oral antibiotics - on oral azithromycin day #2, continue IV rocephin Continue Eliquis 10 mg twice daily x7 days and then 5 mg twice daily lifelong Will need outpatient hematology evaluation Follow-up CT scan in 3 months Continue supplemental oxygen, wean as able Add lidocaine patch for pain control, on oxycodone and morphine as needed encourage incentive spirometry, encouraged to ambulate about the unit consult PT/OT Obesity (BMI 35.0-39.9 without comorbidity): BMI 39.6 diet and exercise to be encouraged JOSE In setting of acute illness, PE and pneumonia Resolved, creatinine peak 1.4 BUN/creatinine 11 and 1.14 today Hypokalemia Replace Anemia H&H 9.7 and 28.8, normal indices Unknown baseline, likely dilutional positive fluid balance He has had increased weight from 127.1kg to 133.9kg anemia panel: iron 26 L, ferritin 319, TIBC 219 L, transferrin 172 L , b12 and folate WNL will add ferrous sulfate 325mg daily at discharge, await until constipation resolves FOBT pending when pt moves bowels Mild hyponatremia, chronic continues to be 133, monitor TSH normal Bipolar I disorder: Continue lithium 450 mg BID for mood stabilization and doxepin 200 mg for sleep Pt reports last episode of arian was about 3 years ago Continue propranolol 20 mg BID for psych - not for cardiac purposes. Pt denies cardiac history. After further review, pt home medications were not continued on admission on 05/05 - will resume today Constipation no BM in 6 days, give MOM x 1 today s/p docusate x 4 days, MOM x 1 and lactulose 30g x 1 give MOM x 1 now and start Senna S two tab daily encourage patient to ambulate continue miralax daily Pre-Diabetes Mellitus a1c 5.7 pre diabetic encourage diet/lifestyle modifications encourage weight loss DVT ppx: angela contreras CODE: Full code Dispo: From [facility], still requiring 2L of O2, HR improving, dispo uncertain at this time, not medically stable to d/c, awaiting improvement in HR, O2 requirements and bowel movement, PT/OT evals ordered Point of contact: [facility] is [facility] for Shivam Salcido. Please call . Ext [phone] is the physician office. Dr De La Cruz. Admission and Anticipated Discharge Date Admission Date: May 05, 2021 Supervising Physician Co-Signing Physician Notes 35 yo M with PMHx of obesity with BMI of 38.0, bipolar type I, remote smoking hx x 18 pack years, quit 3 years ago, who presents 05/05 to the hospital overnight with complaints of right belly pain exacerbated with deep breathing. 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 Patient was found to have extensive pelvic DVT and PE. Likely secondary to immobility. Admitting echo: EF 55 to 60% with normal diastolic function and normal right ventricular size and function. Troponinx1 negative. Patient initially on heparin drip --> transitioned to eliquis 10 mg BID x 7 days then 5 mg BID lifelong. Patient doesn't have any prior history of blood clot. Since patient is adopted, not sure of any family history of blood clot. Patient developed LLL pneumonia and is being managed with ATB, afebrile currently, continue for 5-7 days. Patient had component of JOSE which resolved. Patient has right upper lobe cavitation, await QuantiFERON test. Patient still complaining of Left lower chest pain with deep breathing, will improve with Rx of pna, CXR improving. Expect DC when HR settles down and patient moves bowel. Pt hasn't moved bowel since admission, advised to move around and is given multiple doses of laxatives/softener. Plan for KUB tomorrow AM if no BM by then. Upon exam, decreased breath sounds left lower lung, 1+ bilateral lower extremity edema, on 2 L nasal cannula oxygen, no CVA tenderness. I have seen and examined the patient and have discussed the case with the provider above. I agree with the assessment and plan as stated. Subjective Patient was seen and examined in 280 bed 1 with guards at bedside. Follow-up hypoxia in setting of extensive pulmonary embolism and possible pneumonia. He continues to complain of left lateral chest pain. He feels pain is the same. He has not yet had a BM. Today is day 6. He is tolerating diet and denies nausea or vomiting. He is urinating without difficulty. He denies any fever, chills, sweats, lightheadedness, dizziness, chest pain, cough and abdominal pain. He admits to not doing incentive spirometry and is not moving around much. Review of Systems Review of Systems: All systems reviewed & are unremarkable except as noted in HPI & below Physical Exam Physical Exam: Gen: WD/WN, morbid obese, flat affect NAD, A&O x3 HEENT: Normocephalic, atraumatic, conjunctivae moist, sclerae anicteric, mucous membranes moist. Lung: Clear to Auscultation bilaterally, no wheezes/rales/rhonchi , 2L of O2 via NC Heart: Regular rate, regular rhythm, no murmurs, rubs, or gallops Abdomen: ; protuberant abd, firm, NT, ND +BS x 4 Extremities: No edema Skin: Warm, no rash, negative turgor. Results & Data Results & Data ([facility]) Vital Signs (Past 12 Hours) Vital Signs Temp Pulse Resp BP BP Pulse Ox 05/10/21 11:54 36.6 C 111 H 18 139/85 95 05/10/21 07:27 36.6 C 105 H 18 120/82 95 05/10/21 04:41 36.7 C 103 H 20 119/77 95 Laboratory Results Short CBC 05/10/21 Range/Units 05:25 WBC 6.94 (4.8-10.8) K/uL Hgb 9.7 L (14.0-18.0) g/dL Hct 28.8 L (42-52) % Plt Count 407 H (130-400) K/uL BMP 05/10/21 05:25 Sodium 133 L Potassium 3.9 D Chloride 102 Carbon Dioxide 27 BUN 12 Creatinine 1.10 Glucose 112 H Calcium 9.7 Cardiac Enzymes 05/09/21 Range/Units 15:19 Troponin I < 0.015 (0-0.045) ng/ml Anemia panel iron 26 L, ferritin 319, TIBC 219 L, transferrin 172 L , b12 and folate WNL Medications Administered Current Inpatient Medications Acetaminophen (Acetaminophen 325 Mg Tab) 650 mg PO Q4H PRN PRN Reason: Pain or Fever Stop: 06/04/21 11:10 Last Admin: 05/10/21 02:44 Dose: 650 mg Documented by: Apixaban (Apixaban 5 Mg Tablet) 10 mg PO BID [facility] Stop: 05/15/21 21:01 Last Admin: 05/10/21 08:33 Dose: 10 mg Documented by: Azithromycin (Azithromycin 250 Mg Tab) 250 mg PO QAM [facility] Stop: 05/13/21 08:59 Last Admin: 05/10/21 08:33 Dose: 250 mg Documented by: Doxepin HCl (Doxepin Hcl 50 Mg Capsule) 200 mg PO HS [facility] Stop: 06/09/21 20:59 Fluticasone Furoate (Fluticasone Furoate 100mcg 14 Puffs/Inhaler) 1 puffs INH QDR [facility] Stop: 06/10/21 07:59 Ceftriaxone Sodium 2,000 mg/ (Dextrose) 70 mls @ 100 mls/hr IV Q24H [facility]; Protocol Stop: 05/15/21 09:59 Last Infusion: 05/10/21 10:45 Dose: Infused Documented by: Lidocaine (Lidocaine 5% 1 Patch) 1 patch TD QAM [facility] Stop: 06/08/21 09:14 Last Admin: 05/10/21 08:33 Dose: 1 patch Documented by: Orofino Carbonate (Orofino Carbonate 450 Mg Tabcr) 450 mg PO BID [facility] Stop: 06/09/21 20:59 Magnesium Hydroxide (Magnesium Hydroxide Susp 30 Ml Udc) 30 ml PO Q6H PRN PRN Reason: Constipation Stop: 06/08/21 09:02 Miscellaneous (Remove Lidoderm Patch) 1 ea N/A DAILY@2100 [facility] Stop: 06/08/21 20:59 Last Admin: 05/09/21 21:51 Dose: 1 ea Documented by: Morphine Sulfate (Morphine Sulfate 2 Mg/Ml Carp) 2 mg IV Q6H PRN PRN Reason: Pain Stop: 05/19/21 09:36 Last Admin: 05/10/21 13:34 Dose: 2 mg Documented by: Ondansetron HCl (Ondansetron Inj 2 Mg/Ml 2 Ml Vial) 4 mg IV Q6H PRN PRN Reason: Nausea Stop: 06/04/21 11:10 Oxycodone/Acetaminophen (Oxycodone/Acetaminophen 5mg/325mg Tab) 2 tab PO Q6H PRN PRN Reason: Pain Stop: 05/20/21 15:29 Last Admin: 05/10/21 09:59 Dose: 2 tab Documented by: Polyethylene Glycol (Polyethylene (Miralax) 17 Gm Pack) 17 gm PO DAILY [facility] Stop: 06/07/21 10:29 Last Admin: 05/10/21 08:34 Dose: 17 gm Documented by: Propranolol HCl (Propranolol Hcl 20 Mg Tab) 20 mg PO BID [facility] Stop: 06/09/21 20:59 Senna/Docusate Sodium (Docusate Sodium/Senna 50/8.6mg Tab) 2 tab PO QAM [facility] Stop: 06/09/21 15:14
[2021-05-10] MEDS: DOCUSATE SODIUM/SENNA 50/8.6MG TAB PO SCH (15:28)
[2021-05-10] MEDS: LITHIUM CARBONATE 450 MG TABCR PO SCH (19:51)
[2021-05-10] MEDS: PROPRANOLOL HCL 20 MG TAB PO SCH (19:51)
[2021-05-10] MEDS ORDERED: DOXEPIN HCL 50 MG CAPSULE PO SCH (21:00)
[2021-05-10 21:53] LABS: Anti-Thrombin III Activity 118 % normal (80-135); PTT LA Screen 38 sec (<=40)
[2021-05-11] MEDS: ACETAMINOPHEN 325 MG TAB PO PRN (00:11)
[2021-05-11] MEDS: MoRPHine SULFATE 2 MG/ML CARP IV PRN ×2 (02:21→09:00)
--- NOTE | 2021-05-11 04:45 | Electrocardiogram Report ---
Test Reason : Blood Pressure : / mmHG Vent. Rate : 117 BPM Atrial Rate : 117 BPM P-R Int : 162 ms QRS Dur : 098 ms QT Int : 314 ms P-R-T Axes : 061 040 042 degrees QTc Int : 438 ms Sinus tachycardia Otherwise normal ECG When compared with ECG of 06-MAY-2021 05:29, No significant change was found Confirmed by Sanya Zapata ([id number]) on 05/11/2021 4:44:55 AM Referred By: [facility] Confirmed By:Sanya Zapata
[2021-05-11] MEDS: oxyCODONE/ACETAMINOPHEN 5mg/325mg TAB PO PRN ×2 (06:21→12:21)
[2021-05-11] MEDS ORDERED: FLUTICASONE FUROATE 100MCG 14 PUFFS/INHALER INH SCH (08:00)
[2021-05-11 08:09] LABS: Basophils # (auto) 0.03 K/uL (0-0.2); Basophils % (auto) 0.4 %; Eosinophils % (auto) 4.4 %; Hematocrit (blood only) 29.5 % (42-52); Hemoglobin 9.8 g/dL (14.0-18.0); Immature Granulocytes # (auto) 0.02 K/uL (0.00-0.02); Immature Granulocytes % (auto) 0.3 %; Lymphocytes # (auto) 1.11 K/uL (1.2-3.4); Lymphocytes % (auto) 16.2 %; Mean Corpuscular Hemoglobin 28.8 pg (25-34); Mean Corpuscular Hgb Conc 33.2 g/dL (32-36); Mean Corpuscular Volume 86.8 fL (80-100); Mean Platelet Volume 8.3 fL (7.4-10.4); Monocytes # (auto) 0.58 K/uL (0.11-0.59); Monocytes % (auto) 8.5 %; Neutrophils % (auto) 70.2 %; Platelet Count 452 K/uL (130-400); RDW Coefficient of Variation 13.9 % (11.5-14.5); RDW Standard Deviation 44.2 fL (36.4-46.3); White Blood Count 6.84 K/uL (4.8-10.8)
[2021-05-11 08:28] LABS: Partial Thromboplastin Ratio 1.1; Partial Thromboplastin Time 27.9 Seconds (21.0-31.0)
[2021-05-11 08:48] LABS: BUN Creatinine Ratio 11.8 (10-20); Calcium 9.7 mg/dl (8.5-10.1); Creatinine Clr Calc Pharmacy 133.2 ml/min; Est GFR (African American) 103.4 ml/min; Est GFR (Non-African American) 89.2 ml/min; Potassium 4.3 mmol/L (3.5-5.1)
[2021-05-11] MEDS: cefTRIAXone SODIUM 2,000 MG in DEXTROSE 5% 50 ML IV SCH (09:02)
[2021-05-11] MEDS: POLYETHYLENE (MIRALAX) 17 GM PACK PO SCH (09:02)
[2021-05-11] MEDS: PROPRANOLOL HCL 20 MG TAB PO SCH (09:04)
[2021-05-11] MEDS: LIDOCAINE 5% 1 PATCH TD SCH (09:04)
[2021-05-11] MEDS: APIXABAN 5 MG TABLET PO SCH (09:04)
[2021-05-11] MEDS: LITHIUM CARBONATE 450 MG TABCR PO SCH (09:04)
[2021-05-11] MEDS: DOCUSATE SODIUM/SENNA 50/8.6MG TAB PO SCH (09:04)
[2021-05-11] MEDS: AZITHROMYCIN 250 MG TAB PO SCH (09:04)
--- NOTE | 2021-05-11 12:20 | Hospitalist Progress Note ---
Date of Service May 11, 2021 Assessment & Plan (1) Pulmonary embolism: (2) Acute respiratory failure with hypoxia: (3) Prediabetes: Plan: 35 yo M with PMHx of obesity with BMI of 38.0, bipolar type I, remote smoking hx x 18 pack years, quit 3 years ago, who presents 05/05 to the hospital overnight with complaints of right belly pain exacerbated with deep breathing. Patient was in solitary confinement for 5 months up until 3 weeks ago [employer] when he was [facility] and reports that he has been in bed pretty much since last few months. Acute hypoxic respiratory failure Pulmonary embolism: Concern for infectious process likely pneumonia RUL Cav[place] Patient presented with right belly pain, found to have extensive DVT in the ED. Likely secondary to immobility in the preceding months. Patient is adopted, not sure of any family history of blood clot. No personal history of blood clot. CTAP positive for DVT in the internal and external iliac veins. CTA chest: Extensive B/L PE with a small pulmonary infarct in RUL, airspace consolidation at LLL [query infectious], RUL 7 mm nodular focus with internal cavitation. Echo : EF 55 to 60% with normal diastolic function and normal right ventricular size and function. Trop negative. Covid negative. Patient vaccinated. QuantiFERON test negative in setting of cavitation Hypercoagulable work-up pending Chest x-ray: Positive for left retrocardiac opacity, questionable infectious process with small left pleural effusion procalcitonin 0.68 on 05/08 Pulmonology on board Initially placed on broad-spectrum IV Zosyn on 05/06 and deescalated on 05/08 to Rocephin and azithromycin Per pulmonology okay to transition to oral antibiotics - on oral azithromycin day #3, continue IV rocephin Day 4 Continue Eliquis 10 mg twice daily x7 days and then 5 mg twice daily lifelong Will need outpatient hematology evaluation Follow-up CT scan in 3 months Weaned off O2 Add lidocaine patch for pain control, on oxycodone and morphine as needed encourage incentive spirometry, encouraged to ambulate about the unit PT/OT evals reviewed, at baseline Sinus Tachycardia likely in setting of PE and missed propranolol doses has been gradually improving remains NSR to sinus tach on tele Obesity (BMI 35.0-39.9 without comorbidity): BMI 39.0 diet and exercise to be encouraged JOSE In setting of acute illness, PE and pneumonia Resolved, creatinine peak 1.4 BUN/creatinine 13 and 1.06 today Hypokalemia Replaced Anemia H&H 9.8 and 29.5, normal indices Unknown baseline, likely dilutional positive fluid balance He has had increased weight from 127.1kg to 130.3 anemia panel: iron 26 L, ferritin 319, TIBC 219 L, transferrin 172 L , b12 and folate WNL will add ferrous sulfate 325mg daily at discharge, await until constipation resolves FOBT pending when pt moves bowels Mild hyponatremia, chronic continues to be 135, monitor TSH normal Bipolar I disorder: Continue lithium 450 mg BID for mood stabilization and doxepin 200 mg for sleep Pt reports last episode of arian was about 3 years ago Continue propranolol 20 mg BID for psych - not for cardiac purposes. Pt denies cardiac history. After further review, pt home medications were not continued on admission on 05/05, resumed 05/10 Constipation Pt had BM on 05/10, continue bowel regimen on Senna S two tab daily and miralax Pre-Diabetes Mellitus a1c 5.7 pre diabetic encourage diet/lifestyle modifications encourage weight loss DVT ppx: angela contreras CODE: Full code Dispo: From [facility], stable to return to fdc, awaiting ambulatory oxygen with RN and will discuss with [facility] Physician. Point of contact: [facility] is fdc for Shivam Salcido. Please call . Ext [phone] physician office. Dr De La Cruz. Admission and Anticipated Discharge Date Admission Date: May 05, 2021 Subjective Patient was seen and examined in 280 bed 1 with guards at bedside. Follow-up hypoxia in setting of extensive pulmonary embolism and possible pneumonia. He continues to complain of left lateral chest pain. He feels pain is the same. Worse with inspiration. He did have a moderate BM yesterday and feels abd less distended. Tolerating diet. Denies f/c/s, chest pain, sob at rest, n/v/d. He has been off O2 overnight. He is urinating without difficulty. Review of Systems Review of Systems: All systems reviewed & are unremarkable except as noted in HPI & below Physical Exam Physical Exam: Gen: WD/WN, morbid obese, flat affect NAD, A&O x3 HEENT: Normocephalic, atraumatic, conjunctivae moist, sclerae anicteric, mucous membranes moist. Lung: Clear to Auscultation bilaterally, no wheezes/rales/rhonchi , Heart: Regular rate, regular rhythm, no murmurs, rubs, or gallops Abdomen: abd less distended, protuberant, soft, NT, ND +BS x 4 Extremities: No edema Skin: Warm, no rash, negative turgor. Results & Data Results & Data ([place]) Vital Signs (Past 12 Hours) Vital Signs Temp Pulse Pulse Resp BP Pulse Ox 05/11/21 10:54 36.4 C L 103 H 17 126/83 94 05/11/21 10:06 96 05/11/21 09:29 98 H 05/11/21 07:18 36.7 C 104 H 17 122/74 92 05/11/21 02:56 36.6 C 92 H 18 118/73 93 05/11/21 01:34 93 H 05/11/21 00:34 95 Laboratory Results Short CBC 05/11/21 Range/Units 07:50 WBC 6.84 (4.8-10.8) K/uL Hgb 9.8 L (14.0-18.0) g/dL Hct 29.5 L (42-52) % Plt Count 452 H (130-400) K/uL BMP 05/11/21 07:50 Sodium 135 L Potassium 4.3 Chloride 104 Carbon Dioxide 24 BUN 13 Creatinine 1.06 Glucose 109 H Calcium 9.7 Medications Administered Current Inpatient Medications Acetaminophen (Acetaminophen 325 Mg Tab) 650 mg PO Q4H PRN PRN Reason: Pain or Fever Stop: 06/04/21 11:10 Last Admin: 05/11/21 00:11 Dose: 650 mg Documented by: Apixaban (Apixaban 5 Mg Tablet) 10 mg PO BID LIANE Stop: 05/15/21 21:01 Last Admin: 05/11/21 09:04 Dose: 10 mg Documented by: Azithromycin (Azithromycin 250 Mg Tab) 250 mg PO QAM LIANE Stop: 05/13/21 08:59 Last Admin: 05/11/21 09:04 Dose: 250 mg Documented by: Doxepin HCl (Doxepin Hcl 50 Mg Capsule) 200 mg PO HS LIANE Stop: 06/09/21 20:59 Last Admin: 05/10/21 19:50 Dose: 200 mg Documented by: Fluticasone Furoate (Fluticasone Furoate 100mcg 14 Puffs/Inhaler) 1 puffs INH QDR [facility] Stop: 06/10/21 07:59 Last Admin: 05/11/21 09:04 Dose: 1 puffs Documented by: Ceftriaxone Sodium 2,000 mg/ (Dextrose) 70 mls @ 100 mls/hr IV Q24H [facility]; Protocol Stop: 05/15/21 09:59 Last Infusion: 05/11/21 09:52 Dose: Infused Documented by: Lidocaine (Lidocaine 5% 1 Patch) 1 patch TD QAM [facility] Stop: 06/08/21 09:14 Last Admin: 05/11/21 09:04 Dose: 1 patch Documented by: [place] Carbonate ([place] Carbonate 450 Mg Tabcr) 450 mg PO BID [facility] Stop: 06/09/21 20:59 Last Admin: 05/11/21 09:04 Dose: 450 mg Documented by: Magnesium Hydroxide (Magnesium Hydroxide Susp 30 Ml Udc) 30 ml PO Q6H PRN PRN Reason: Constipation Stop: 06/08/21 09:02 Last Admin: 05/10/21 15:28 Dose: 30 ml Documented by: Miscellaneous (Remove Lidoderm Patch) 1 ea N/A DAILY@2100 [facility] Stop: 06/08/21 20:59 Last Admin: 05/10/21 19:52 Dose: 1 ea Documented by: Morphine Sulfate (Morphine Sulfate 2 Mg/Ml [place]) 2 mg IV Q6H PRN PRN Reason: Pain Stop: 05/19/21 09:36 Last Admin: 05/11/21 09:00 Dose: 2 mg Documented by: Ondansetron HCl (Ondansetron Inj 2 Mg/Ml 2 Ml Vial) 4 mg IV Q6H PRN PRN Reason: Nausea Stop: 06/04/21 11:10 Oxycodone/Acetaminophen (Oxycodone/Acetaminophen 5mg/325mg Tab) 2 tab PO Q6H PRN PRN Reason: Pain Stop: 05/20/21 15:29 Last Admin: 05/11/21 06:21 Dose: 2 tab Documented by: Polyethylene Glycol (Polyethylene (Miralax) 17 Gm Pack) 17 gm PO DAILY [facility] Stop: 06/07/21 10:29 Last Admin: 05/11/21 09:02 Dose: 17 gm Documented by: Propranolol HCl (Propranolol Hcl 20 Mg Tab) 20 mg PO BID [facility] Stop: 06/09/21 20:59 Last Admin: 05/11/21 09:04 Dose: 20 mg Documented by: Senna/Docusate Sodium (Docusate Sodium/Senna 50/8.6mg Tab) 2 tab PO QAM LIANE Stop: 06/09/21 15:14 Last Admin: 05/11/21 09:04 Dose: 2 tab Documented by:
--- NOTE | 2021-05-11 13:04 | Discharge Summary ---
Date of Service May 11, 2021 Admission HPI Per Admitting Provider This is a 35 yo M with PMHx of obesity with BMI of 38.0, bipolar type I, remote smoking hx x 18 pack years, quit 3 years ago, who presents to the hospital overnight with complaints of right sided upper abdominal pain which was worse with deep breaths. He noticed this starting around 6 PM last evening. Denies any chest pain, palpitations, syncopal episodes. Patient reports it is difficult to breathe deep breaths due to pain in the right side. Of note the patient was in solitary confinement for 5 months up until 3 weeks ago whenever [facility] was [facility]. During that timeframe he was confined to one cell and states that he spent most of his time lying in bed. He has been incarcerated x9 years, and scheduled to get out in 2028. Otherwise he denies any long car rides, flights, trauma to the lower leg which could have caused DVT. His ultrasound of bilateral lower extremities is negative. He denies any history of erich Covid-19, and reports that he has recieved vaccine. He denies any hx of cancer that he is aware of, no weight loss, night sweats, or swollen lymph nodes that he has noticed. PMHx: Patient denies any known history of blood clotting disorders Family Hx: reports that he was adopted as a child therefore does not know any of his biological parents health history. Social Hx: Smoked between ages [age] 1 ppd, then again from 19 yo to 32 yo. ---15 pack years, denies alcohol use or ilicit drug use. Currently incarcerated as above. Imaging revealed multiple segmental PE's: CT of the abdomen reveals deep venous thrombus in the internal and external iliac veins in this patient with history of pulmonary embolism. distal right main pulmonary artery. This extends into the right upper, middle, and lower lobe pulmonary arteries into segmental and subsegmental branches. There is also thrombus within the distal left main pulmonary artery which extends into the left upper and left lower lobe branches. Segmental and subsegmental pulmonary are seen within branches of the left upper and lower lobe pulmonary arteries as well as within the lingula. 7 mm nodular focus in the right upper lobe shows internal cavitation. This is nonspecific and could be on an inflammatory or infectious basis. His blood work is primarily normal, with noted elevated in Cr. on admission. Vitals are stable with O2 sats in high 90s while he is on 2L via NC. Admission Exam Per Admitting Provider Constitutional: No fever, sweats or chills Eyes: No diplopia, no worsening or blurred vision ENT: normal hearing, no trouble swallowing Respiratory: As per HPI. No cough, sputum, dyspnea at rest or on exertion, + pain with deep breaths Cardiovascular: No chest pain, tightness or palpitations Abdomen: No pain, nausea, vomiting, diarrhea or constipation Musculoskeletal: No joint pain, calf pain, swelling Neurologic: No weakness, numbness/tingling, or balance problems Psychiatric: No anxiety or depression Skin: No rash or itch Principal Diagnosis Acute hypoxic respiratory failure Extensive pulmonary embolism Pulmonary infarct of right upper lobe Left lower lobe pneumonia/left retrocardiac opacity Sinus tachycardia JOSE -resolved Hypokalemia-resolved Anemia Constipation Discharge Exam Gen: WD/WN, morbid obese, flat affect NAD, A&O x3 HEENT: Normocephalic, atraumatic, conjunctivae moist, sclerae anicteric, mucous membranes moist. Lung: Clear to Auscultation bilaterally, no wheezes/rales/rhonchi , Heart: Regular rate, regular rhythm, no murmurs, rubs, or gallops Abdomen: abd less distended, protuberant, soft, NT, ND +BS x 4 Extremities: No edema Skin: Warm, no rash, negative turgor. Discharge Data Allergies Allergy/AdvReac Type Severity Reaction Status Date / Time No Known Allergies Allergy Verified 05/05/21 02:14 Consultations Pulmonology consult (1) Pulmonary embolism: (2) Abnormal CT scan of lung: (3) Multiple pulmonary nodules: (4) Painful respiration: Plan: Impression: 35-year-old male inmate admitted with acute PE and likely pulmonary infarct. He has pleuritic chest pain likely secondary to the pulmonary in farcts. He is tachycardic but normotensive and echocardiogram shows no evidence of RV strain or secondary pulmonary hypertension. Has been initiated on anticoagulation. Zosyn was initiated by the primary service. Recommendations: 1. Pulmonary embolism: Continue anticoagulation. Given the extensive nature of the PE, lifelong anticoagulation is recommended. Hypercoagulable work-up has been ordered, however many of these studies will be abnormal in the setting of an acute clot and therefore not helpful in directing therapy. Given the extensive nature of the clot, lifelong anticoagulation would be recommended. Outpatient hematology consult can be considered. Defer choice of anticoagulants to the primary service in the [place] [facility]. 2. Pulmonary infarcts: The patient will be followed clinically. He is on analgesia. No response to toradol so will discontinue. Pain management per primary service 3. Pulmonary nodule: I suspect this nodule is likely related to the PEs. He has no infectious symptomatology. Would recommend a follow-up CT scan in 3 months. Procalcitonin is mildly elevated. May be reasonable to complete short course of a azithromycin. The patient's been deescalated to azithromycin and Rocephin which should be adequate. Can transition to oral antibiotics at this point time. Would treat for 5 days. 4. Hypoxemic respiratory failure: Continue supplemental oxygen titrated to keep saturations at or above 90%. Patient appears to be doing reasonably well clinically. Pulmonary will sign off at this point time. Feel free to contact us if we can be of additional assistance Ordered Studies Chest CTA 05/05/21 02:30 CT ANGIOGRAM OF THE CHEST CLINICAL HISTORY: Atypical left-sided chest pain, greatest with inspiration. COMPARISON STUDY: No priors. TECHNIQUE: Following the IV administration of 118 cc of Optiray 320, CT angiogram of the chest was performed from the upper abdomen to the thoracic inlet utilizing the pulmonary embolus protocol. Images are reviewed in the axial, sagittal, and coronal planes. 3-D MIPS images are created and assessed. IV contrast was administered without complication. A dose lowering technique was utilized adhering to the principles of ALARA. The examination is compromised by motion artifact. There is suboptimal contrast opacification of the pulmonary arteries. FINDINGS: Thyroid: Imaged portions of the thyroid gland are normal in size and attenuation. Thoracic aorta: The thoracic aorta is normal in caliber and demonstrates st andard 3-vessel arch anatomy. No dissection is seen. Pulmonary vasculature: The pulmonary trunk is normal in caliber. There is thrombus within the distal right main pulmonary artery. This extends into the right upper, middle, and lower lobe pulmonary arteries into segmental and subsegmental branches. There is also thrombus within the distal left main pulmonary artery which extends into the left upper and left lower lobe branches. Segmental and subsegmental pulmonary are seen within branches of the left upper and lower lobe pulmonary arteries as well as within the lingula. Heart: The heart is normal in size and without pericardial effusion. Lungs and pleural spaces: Evaluation of the lung parenchyma is degraded by motion artifact. There is no pleural effusion. The trachea and central airways are clear. Patchy airspace consolidation is seen at the left lung base. Foci of scarring/atelectasis are seen throughout both lungs. A wedge-shaped focus of subpleural consolidation in the right upper lobe on image #150 likely represents a pulmonary infarct. A 7 mm nodular focus in the right upper lobe on image #151 shows minimal internal cavitation. Mediastinum: There is no mediastinal lymphadenopathy. Moraima: Clear. Axillae: There is no axillary lymphadenopathy. Upper abdomen: There is a small hiatal hernia. Partially visualized upper abdominal viscera is within normal limits. Skeletal structures: No lytic or blastic bony lesions are seen. IMPRESSION: 1. Extensive bilateral pulmonary embolus as above. 2. A small pulmonary infarct is seen in the right upper lobe. 3. Airspace consolidation at the left lung base could represent developing infarct and/or an infectious/inflammatory pneumonitis. Clinical correlation will be required. 4. A 7 mm nodular focus in the right upper lobe shows internal cavitation. This is nonspecific and could be on an inflammatory or infectious basis. 5. Additional findings as above. ACT 112: Negative or not required by law. Electronically signed by: Nacho Solano M.D. 05/05/2021 7:29 AM Abdomen/Pelvis CT 05/05/21 02:31 CT abd pelvis IV con only CLINICAL HISTORY: Inspiratory L flank pain TECHNIQUE: Helical axial images of the abdomen and pelvis were obtained and displayed. Automated dose lowering techniques and/or adjustment according to patient size were utilized for this exam. This exam was performed with intravenous contrast. COMPARISON: None available at the time of this dictation. FINDINGS: Lower chest: For findings above the diaphragm, please see CT chest performed same day. Liver: Unremarkable. No focal lesions are seen. Gallbladder and biliary tree: No calcified gallstones. Normal caliber wall. No intra- or extrahepatic biliary ductal dilation. Pancreas: Unremarkable, no focal lesions. Spleen: Unremarkable. Adrenals: Unremarkable. Kidneys and ureters: A 1 cm renal cyst is seen in the right superior pole. Smaller hypodensities are seen bilaterally favored to represent cysts. Bladder: Unremarkable. Reproductive organs: Unremarkable. Bowel: Unremarkable. The appendix is normal. Lymph nodes Retroperitoneal: Unremarkable. Mesenteric: Unremarkable. Pelvic: Unremarkable. Peritoneum: Normal. Vessels: There is a filling defect in the right internal and external iliac veins extending into the common iliac vein. There is surrounding stranding. Abdominal wall: Right fat-containing inguinal hernia. Bones: Degenerative changes in the visualized spine. IMPRESSION: Deep venous thrombus in the internal and external iliac veins in this patient with history of pulmonary embolism. Otherwise no acute abnormalities are seen. ACT 112: Negative or not required by law. Electronically signed by: Melecio Dudley M.D. 05/05/2021 9:07 AM Venous Doppler Study 05/05/21 06:20 BILATERAL LOWER EXTREMITY VENOUS DOPPLER CLINICAL HISTORY: Pulmonary emboli. COMPARISON STUDY: No previous studies for comparison. TECHNIQUE: Sonography of the deep venous system of the bilateral lower extremities was performed. Compression and augmentation were evaluated. FINDINGS: The bilateral common femoral, superficial femoral and popliteal veins were compressible. Augmentation was normal. Flow was shown within the deep calf vessels although the calf vessels were suboptimally assessed on this exam. IMPRESSION: No evidence of deep venous thrombus within the bilateral lower extremities. ACT 112: Negative or not required by law. Electronically signed by: Pete Segundo M.D. 05/05/2021 7:58 AM Chest X-Ray 05/06/21 17:56 XR chest 1V portable CLINICAL HISTORY: f/u CXR, developing fever TECHNIQUE: Single frontal radiograph of the chest was obtained. Comparison: Comparison is made to CTA chest 05/05/2021 FINDINGS: No lines and tubes are seen. The cardiomediastinal silhouette is normal. Bibasilar atelectasis is seen. There is a left retrocardiac opacity and blunting of the left costophrenic angle. No pneumothorax or right effusion is seen. IMPRESSION: Left retrocardiac opacity may represent atelectasis, pneumonia, and/or as piration. There is a small left pleural effusion. ACT 112: Negative or not required by law. Electronically signed by: Melecio Dudley M.D. 05/06/2021 6:45 PM Chest X-Ray 05/10/21 07:00 XR chest 1V portable HISTORY: f/u CXR, left lower lobe dec breath sounds and persisting pain COMPARISON: Chest 05/06/2021. FINDINGS: No pneumothorax. There are low lung volumes. The heart remains borderline enlarged. No evidence for pulmonary edema. Left basilar airspace opacities persist. Linear densities within the right lung base have slightly improved. IMPRESSION: 1. Low lung volumes with persistent left basilar airspace opacities. 2. Slight improved aeration within the right lower lobe linear densities. ACT 112: Negative or not required by law. Electronically signed by: Mj Dozier M.D. 05/10/2021 9:02 AM Diabetes Follow up A1C 5.7 Hospital Course (1) Pulmonary embolism: (2) Acute respiratory failure with hypoxia: (3) Prediabetes: 35 yo M with PMHx of obesity with BMI of 38.0, bipolar type I, remote smoking hx x 18 pack years, quit 3 years ago, who presents 05/05 to the hospital overnight with complaints of right belly pain exacerbated with deep breathing. Patient was in solitary confinement for 5 months up until 3 weeks ago [employer] when he was transferred to [facility] and reports that he has been in bed pretty much since last few months. Patient was diagnosed with acute hypoxic respiratory failure in setting of extensive bilateral pulmonary emboli with a small pulmonary infarct in the right upper lobe. He was also found to have airspace consolidation at left lower lobe and concern for left retrocardiac opacity. He was initiated on IV heparin for anticoagulation. He was also initially on IV Zosyn due to concern for pneumonia. Initial procalcitonin was elevated at 0.68. CTA chest also elicited a right upper lobe centimeter nodular focus with internal cavitation. TB was ruled out with QuantiFERON gold test. His hypercoagulable work-up was negative. It was felt DVT/PE may have been in setting of sedentary status given solitary confinement. Given the extensive nature of clot lifelong anticoagulation is recommended from pulmonary service. He did require oxygen supplementation until day of discharge he was ambulating 94 to 95% on room air and 93% with ambulation on room air. He continued to have left lateral chest wall inspiratory pain likely secondary to PE and pulmonary infarct. He required oxycodone for this. During hospitalization he was constipated and had a moderate bowel movement on 05/10. He was transitioned from IV heparin to oral Eliquis. It is recommended he undergo hematology evaluation as outpatient as well as have a follow-up CAT scan in 3 months to evaluate for pulmonary nodules. He was monitored on telemetry throughout hospitalization and was mostly in sinus tach. This was felt to be secondary to pulmonary embolism as well as patients propranolol was held on admission and not resumed until 4 days after. He did have a mild JOSE which resolved with IV fluid as well as hypokalemia and this was replaced. He was anemic with an unknown baseline. On day of discharge H&H was 9.8 and 29.5 with normal indices. FOBT was negative. An anemia panel was obtained which revealed iron of 26, ferritin 319 and low TIBC and transferrin. His vitamin B12 and folate was normal. He was seen evaluated by PT and OT and was felt to be at his baseline. On day of discharge he was in good spirits, saturating well on room air and still with mild residual left lateral chest wall pain on inspiration. Report was called to Dr. De La Cruz at [facility]. Total Time Total Time Spent Total Time Spent (In Minutes): 75 Total Time Includes: Examination of the Patient, Discharge Planning, Medication Reconciliation, Communication With Other Providers and Other Discharge Plan Discharge Items [facility]position[facility] Reason For Visit: EXTENSIVE BILATERAL PULMONARY EMBOLUS Discharge Diagnosis: Acute hypoxic respiratory failure Extensive pulmonary embolism Pulmonary infarct of right upper lobe Left lower lobe pneumonia/left retrocardiac opacity Sinus tachycardia JOSE -resolved Hypokalemia-resolved Anemia Constipation Condition on Discharge: Good Activity: Resume your previous activity Lifting: Gradually increase as tolerated Exercise/Sports: None Exercise Comment: None secondary to being on anticoagulation Weightbearing: Full weightbearing Non-emergency contact: Primary Care Provider Call non-emergency contact if: you have any medication questions, your symptoms worsen, your pain is not controlled, your pain is worsening, your pain is unusual for you, your pain is concerning for you and your temperature is above 101 Follow-up/Referrals: Reshma OSBORN [Primary Care Provider] - Diet: Regular Addtl Attending Provider Instructions: MEDICATION CHANGES: You were started on Eliquis 10 mg twice daily, last dose 05/15/2021 at 2100. Continue Eliquis at 5 mg twice daily indefinitely for pulmonary embolus starting on 05/16/21 Azithromycin 250 mg daily x4 days for pneumonia. Continue Ceftin 500 mg twice daily x3 days for pneumonia. Ferrous sulfate 325 mg once daily due to anemia. Recommend continuing Senna S 2 tablets once daily for constipation. Recommend continuing MiraLAX 17 g once daily for constipation. You're prescribed Percocet 5 mg every 6 hours as needed for pain secondary to pleuritic chest pain, use sparingly. Continue all other medications as prescribed. SUMMARY OF TEST RESULTS/HOSPITALIZATION: You were admitted to hospital secondary to acute respiratory failure due to extensive blood clot in the lung, left lower lobe pneumonia. Also found to have DVT of the internal and external iliac veins. You're treated with anticoagulation and transition to oral Eliquis which he will remain on indefinitely. You were treated with antibiotics for pneumonia and will complete course of antibiotics as outpatient. Underwent testing for TB and clotting disorder which was negative. You were found to have an A1C of 5.7 which classifies you as pre diabetic. Recommend weight loss, dietary changes and exercise to reduce your risk of developing diabetes. You were found to be Anemic. Recommend taking iron daily. PENDING TEST RESULTS: None RECOMMENDATIONS FOR FOLLOW-UP: Follow up with [facility]. Recommend taking all medications as prescribed. You will remain on Eliquis life long. Recommend repeat CT of chest in 3 months given lung nodules and RUL cavitation. Recommend repeat Iron panel in 3 months after Iron therapy. Recommend outpatient hematology evaluation in setting of unprovoked PE with unremarkable hypercoagulable panel. OTHER INSTRUCTIONS: Seek medical attention if you have: * temperature above 101 * chest pain or trouble breathing * abdominal pain, nausea, vomiting * diarrhea, dark stools or bloody stools * any unanswered questions or concerns Call 911 if symptoms are severe. Please take good care of yourself. It has been a pleasure taking care of you. Please take care of yourself. If you have any questions regarding your recent hospitalization please contact [facility] and request Brayan Aguilarist @ [phone]. Lillian Richardson PA-C Pending Studies at Discharge: No Stand-Alone Forms: My [facility] Skilled Items Patient informed of condition?: Yes Discharge Level of Care: Other Communicable Disease: No Discharge Prognosis: Improving Lines: None Urinary Catheter: No Medications and DC Order Prescriptions: New polyethylene glycol 3350 [Miralax] 17 gram Powder In Packet 17 g PO DAILY Qty: 30 RF: 0 azithromycin 250 mg Tablet 250 mg PO QAM Qty: 4 RF: 0 sennosides-docusate sodium [Senokot-S] 8.6-50 mg Tablet 2 tab PO QAM Qty: 30 RF: 0 oxycodone-acetaminophen [Percocet] 5-325 mg Tablet 2 tab PO Q6H PRN (Reason: pain (scale score 7-10)) Qty: 30 RF: 0 Eliquis 5 mg tablet 5 mg PO Q12H Qty: 60 RF: 0 cefuroxime axetil 500 mg tablet 500 mg PO BID 3 Days Qty: 6 RF: 0 ferrous sulfate 325 mg (65 mg iron) tablet,delayed release (DR/EC) 325 mg PO DAILY Qty: 30 RF: 0 Continued lithium carbonate 450 mg Tablet Extended Release 450 mg PO BID RF: 0 doxepin 100 mg Capsule 200 mg PO HS RF: 0 propranolol 20 mg Tablet 20 mg PO BID RF: 0 Mouth Kote Aerosol,[place] 2 spray MUCOUS MEMBRANE QID PRN (Reason: Dry Mouth) RF: 0 levalbuterol tartrate [Xopenex HFA] 45 mcg/actuation Hfa Aerosol Inhaler 2 inh INHALATION QID PRN (Reason: Wheezing) RF: 0 Alves[place] 80 mcg/actuation Hfa Aerosol Inhaler 1 puff INHALATION BID RF: 0 Discharge Orders: Discharge Order (Routine); Ordered 05/11/21 Ordered By: Lillian Richardson Admission Data Admit Date/Time: 05/05/21 08:13 Attending Provider: Catherine Alvarez I. Admit Provider: Clarissa Garibay Primary Care Provider: Reshma OSBORN Other Providers: Clarissa Garibay ; Eulalio Najera ; Gem Price Other Interventions: Discharge Summary Assessment (RN) Last Done: 05/11/21 13:10 Supervising Physician Co-Signing Physician Notes Agree with findings and plan as detailed by Lillian Richardson PA-C Spent 35 mins on discharge day evaluation, physical exam, counselling and education
== END 2021-05-11 15:02 | DRG 175 ==
LOC: ED 01:58 → EDINP 08:13 → SUATTDRO 08:13 → 2N 10:46

== ENCOUNTER 2021-05-24 17:58 | Inpatient (IN) ==
[2021-05-24] MEDS ORDERED: SODIUM CHLORIDE 0.9% 500 ML IV STA (18:23)
[2021-05-24 19:37] LABS: Hemoglobin 12.5 g/dL (14.0-18.0); Mean Corpuscular Hemoglobin 27.3 pg (25-34); Mean Corpuscular Hgb Conc 32.1 g/dL (32-36); Mean Corpuscular Volume 85.2 fL (80-100); Mean Platelet Volume 8.1 fL (7.4-10.4); Platelet Count 511 K/uL (130-400); RDW Coefficient of Variation 14.1 % (11.5-14.5); RDW Standard Deviation 43.4 fL (36.4-46.3); Red Blood Count 4.58 M/uL (4.7-6.1); White Blood Count 10.01 K/uL (4.8-10.8)
[2021-05-24 19:57] LABS: Calcium 9.4 mg/dl (8.5-10.1); Creatinine Clr Calc Pharmacy 96.2 ml/min; Est GFR (African American) 75.8 ml/min; Est GFR (Non-African American) 65.4 ml/min; Potassium 3.9 mmol/L (3.5-5.1)
[2021-05-24] MEDS ORDERED: KETOROLAC TROMETHAMINE 15 MG/ML VIAL IV STA (20:34)
--- NOTE | 2021-05-24 20:58 | Emergency Department Note ---
Impression & Plan Acute left flank pain, Upper back pain on left side, Pleurisy ED Provider Note INFORMANT: Patient ED PROVIDER(S): Benitez Curry MD CHIEF COMPLAINT: Flank and upper back pain PLAN: Disposition: Admitted Condition: Good Outpatient prescription management: none Referral: None MEDICAL DECISION MAKING: Patient presented with complaints of acute flank and upper back pain. He is anticoagulated Coumadin secondary to pulmonary emboli. The patient was given IV Toradol. Blood work was obtained. CT imaging and ECG ordered. Patient's CBC and chemistry panel were unremarkable except for mild thrombocytosis and mild anemia. He underwent chest CT imaging and was found to have right-sided pulmonary emboli, significant atelectasis and sizable left-sided effusion. I suspect the patient is dealing with severe pain and discomfort from this effusion and shortness of breath from atelectasis. He became quite symptomatic in CAT scan. He was more tachypneic, tachycardic, pale and diaphoretic. He was given a dose of IV Dilaudid which helped control some of the pain. CT imaging results discussed with stat rad. Patient's ECG showed a sinus rhythm without acute ischemia. In light of his effusion and symptoms further management in the hospital was deemed appropriate. Consultation was made with the [facility] service. Patient was evaluated in the ER admitted for further management. Triage Nursing notes reviewed and agree them. Vital Signs: reviewed and remarkable for mild tachycardia and hypertension Differential diagnosis: Cardiac ischemia, aortic dissection, pulmonary embolism, pneumothorax, pneumonia, pericarditis, myocarditis, esophageal rupture, GERD, cholecystitis, pancreatitis, musculoskeletal, as well as other pathologies. Diagnostics interpreted by me: ECG: Twelve-lead ECG reveals normal sinus rhythm at 89 bpm. Low voltage QRS. Nonspecific ST. No ST elevation or depression. Normal axis. Cardiac Monitoring: Cardiac monitoring ordered by me: The patient was placed on continuous cardiac monitoring and observed. It revealed sinus tachycardia at 111 beats per minute without ectopy or evidence of dysrhythmia. Imaging studies: CT scan as noted above. HPI: The patient is a 35 year old male who presents to the Emergency Room with complaints of left flank and left upper back pain. This started last night and is sharp. The patient also notes the following associated symptoms, some mild shortness of breath. Patient has a history of pulmonary emboli and is concerned of this feels the same. He is on Coumadin. Record review of the documentation provided from the [facility] indicates his INR has been therapeutic or slightly supratherapeutic. The patient has been given Tylenol for relieving factors. Current pain is rated as 7/10. Pt denies LOC, headache, fevers, chills, diaphoresis, visual changes, neck pain, central or right-sided chest pain, nausea, vomiting, abdominal pain, right-sided back pain, melena, hematochezia, urinary symptoms, numbness, weakness, lymphadenopathy, rash, or other complaints. ROS: See above HPI for pertinent positives & negatives. A total of 10 systems reviewed and were otherwise negative. PAST MEDICAL HISTORY:See Below , pulmonary emboli, anticoagulated PAST SURGICAL HISTORY:See Below, FAMILY HISTORY:See Below SOCIAL HISTORY:See Below, incarcerated HOME MEDICATIONS:See Below ALLERGIES:See Below VITALS:See Below PHYSICAL EXAMINATION: GENERAL: Awake, alert, uncomfortable appearing, in no distress HENT: Normocephalic, atraumatic. Oropharynx unremarkable. EYES: Normal conjunctiva. Sclera non-icteric. NECK: Inspection normal. Non-tender. Supple. No nuchal rigidity. FROM. No masses. RESPIRATORY: Clear to auscultation. No wheezes. No rales. Normal respiratory effort. CARDIAC: Borderline tachycardic rate. Normal rhythm. No murmurs. No rubs. Extremities warm and well perfused. Pulses equal. No JVD. GI: Soft, non-distended. No tenderness to palpation. No rebound or guarding. No masses. RECTAL: Deferred. MUSCULOSKELETAL: Atraumatic. Chest examination reveals no tenderness. The back is symmetrical on inspection without obvious abnormality. There is no CVA tenderness to palpation. No joint edema. LOWER EXTREMITIES: Calves are equal size bilaterally and non-tender. No edema. No discoloration. NEURO: Normal sensorium. No sensory or motor deficits noted. SKIN: No rash or jaundice noted. Benitez Curry MD Past Med/Surg History Social History Smoking Status: Never smoker Preferred Language: Czech Feels Safe at Home: Yes Allergies Allergies Allergy/AdvReac Type Severity Reaction Status Date / Time No Known Allergies Allergy Unverified 05/24/21 21:49 Home Meds Home Medications Medication Instructions Recorded Confirmed acetaminophen 500 mg tablet 1,000 mg PO BID 05/24/21 05/24/21 (Tylenol Extra Strength) ciclesonide 80 mcg/actuation 1 puff INHALATION BID 05/24/21 05/24/21 aerosol inhaler (Alvesco) ferrous sulfate 325 mg (65 mg 325 mg PO DAILY 05/24/21 05/24/21 iron) tablet levalbuterol tartrate 45 2 inh INHALATION Q6H PRN 05/24/21 05/24/21 mcg/actuation aerosol inhaler (Xopenex HFA) lithium carbonate 450 mg 450 mg PO BID 05/24/21 05/24/21 tablet,extended release polyethylene glycol 3350 17 17 g PO DAILY PRN 05/24/21 05/24/21 gram/dose oral powder (Miralax) saliva stimulant comb. no.4 2 spray PO QID PRN 05/24/21 05/24/21 sennosides 8.6 mg-docusate sodium 1 tab-cap PO BID 05/24/21 05/24/21 50 mg tablet (Senna Plus) thiamine HCl (vitamin B1) 100 mg 100 mg PO DAILY 05/24/21 05/24/21 tablet warfarin 2.5 mg tablet 2.5 mg PO HS 05/24/21 05/24/21 warfarin 4 mg tablet 4 mg PO HS 05/24/21 05/24/21 Results & Data (ED) Vital Signs Vital Signs - 24 hr 05/24/21 18:18 Temperature 36.7 C Temperature Source Oral Pulse Rate 111 H Pulse Rhythm Regular Pulse Strength Normal Respiratory Rate 20 Respiratory Effort / Characteristics Non-Labored Spontaneous Respiratory Depth Normal Respiratory Pattern Regular Blood Pressure 162/98 H Blood Pressure Mean 119 Blood Pressure Position Sitting Pulse Oximetry 97 Oxygen Delivery Method Room Air Sepsis Recent Fever Within 48 Hours No Sepsis New/Unexplained Change in Mental Status No Sepsis Action Taken by Nursing No Action Required Laboratory Data Result diagrams: 05/24/21 19:27 05/24/21 19:27 Lab Results 05/24/21 05/24/21 05/24/21 Range/Units 19:27 19:27 19:27 WBC 10.01 (4.8-10.8) K/uL RBC 4.58 L (4.7-6.1) M/uL Hgb 12.5 L (14.0-18.0) g/dL Hct 39.0 L (42-52) % MCV 85.2 (80-100) fL MCH 27.3 (25-34) pg MCHC 32.1 (32-36) g/dL RDW Std Deviation 43.4 (36.4-46.3) fL RDW Coeff of Aleksandr 14.1 (11.5-14.5) % Plt Count 511 H (130-400) K/uL MPV 8.1 (7.4-10.4) fL Sodium 139 (136-145) mmol/L Potassium 3.9 (3.5-5.1) mmol/L Chloride 109 H (98-107) mmol/L Carbon Dioxide 23 (21-32) mmol/L Anion Gap 7.0 (3-11) BUN 11 (7-18) mg/dl Creatinine 1.37 (0.6-1.4) mg/dl Est Cr Clr Drug Dosing 96.2 ml/min Est GFR ( Amer) 75.8 ml/min Est GFR (Non-Af Amer) 65.4 ml/min BUN/Creatinine Ratio 8.0 L (10-20) Glucose 94 (70-99) mg/dl Calcium 9.4 (8.5-10.1) mg/dl Troponin I < 0.015 (0-0.045) ng/ml Administered Medications Hydromorphone HCl (Hydromorphone Inj 0.5 Mg/0.5 Ml Syr) 0.5 mg IV Q15M PRN PRN Reason: Pain Stop: 06/07/21 21:14 Last Admin: 05/24/21 21:24 Dose: 0.5 mg Documented by: [id number] Discontinued Medications Sodium Chloride (Nss) 500 mls @ 999 mls/hr IV .Q31M STA Stop: 05/24/21 18:53 Last Admin: 05/24/21 20:43 Dose: 999 mls/hr Documented by: [id number] Ioversol (Optiray 320 125ml) 120 ml IV ONCE ONE Stop: 05/24/21 21:09 Last Admin: 05/24/21 21:11 Dose: 120 ml Documented by: [id number] Ketorolac Tromethamine (Ketorolac Tromethamine 15 Mg/Ml Vial) 15 mg IV NOW STA Stop: 05/24/21 20:35 Last Admin: 05/24/21 20:43 Dose: 15 mg Documented by: [id number] Ondansetron HCl (Ondansetron Inj 2 Mg/Ml 2 Ml Vial) 4 mg IV NOW STA Stop: 05/24/21 21:16 Last Admin: 05/24/21 21:24 Dose: 4 mg Documented by: [id number] Discharge Plan Visit Data Chief Complaint: Flank Pain Stated Complaint: L SIDEPAIN ED Provider: Benitez Curry Discharge Problem: Acute left flank pain, Upper back pain on left side, Pleurisy Forms Stand Alone Forms: My [facility] Prescriptions Prescriptions: No Action sennosides-docusate sodium [Senna Plus] 8.6-50 mg Tablet 1 tab-cap PO BID RF: 0 thiamine HCl (vitamin B1) 100 mg Tablet 100 mg PO DAILY RF: 0 warfarin [Coumadin] 2.5 mg Tablet 2.5 mg PO HS RF: 0 acetaminophen [Tylenol Extra Strength] 500 mg Tablet 1,000 mg PO BID RF: 0 lithium carbonate 450 mg Tablet Extended Release 450 mg PO BID RF: 0 warfarin [Coumadin] 4 mg Tablet 4 mg PO HS RF: 0 ferrous sulfate 325 mg (65 mg iron) Tablet 325 mg PO DAILY RF: 0 polyethylene glycol 3350 [Miralax] 17 gram/dose Powder 17 g PO DAILY PRN (Reason: Constipation) RF: 0 levalbuterol tartrate [Xopenex HFA] 45 mcg/actuation Hfa Aerosol Inhaler 2 inh INHALATION Q6H PRN (Reason: Shortness Of Breath) RF: 0 Alvesco 80 mcg/actuation Hfa Aerosol Inhaler 1 puff INHALATION BID RF: 0 Dry Mouth [place],Non-Aerosol 2 spray PO QID PRN (Reason: .dry mouth) RF: 0 Referrals Referrals: PCP,NO [Physician] -
[2021-05-24] MEDS ORDERED: OPTIRAY 320 125ml IV ONE (21:08)
[2021-05-24] MEDS ORDERED: ONDANSETRON INJ 2 MG/ML 2 ML VIAL IV STA (21:15)
[2021-05-24] MEDS ORDERED: HYDROmorphone INJ 0.5 MG/0.5 ML SYR IV PRN (21:15)
[2021-05-24] MEDS ORDERED: SODIUM CHLORIDE 0.9% 1000ML 500 ML IV ONE (21:22)
[2021-05-24 21:27] LABS: Troponin I < 0.015 ng/ml (0-0.045)
[2021-05-24 22:24] LABS: INR 2.3 (0.9-1.1); Prothrombin Time 22.1 Seconds (9.0-12.0)
--- NOTE | 2021-05-24 23:07 | History & Physical Report ---
Date of Service May 24, 2021 Assessment & Plan (1) Pleural effusion: Plan: Pleuritic chest pain from left pleural effusion hx pneumonia status post treatment No sepsis for now History pulmonary medicine on Coumadin, INR therapeutic Situational hypertension, possible chronic BP elevation given LVH on TTE from last month Prediabetes, hemoglobin A1c of 5.7 from last month Mood disorder, at baseline Chronic anemia, hemoglobin improved from baseline Past tobacco abuse OBS Medical telemetry Analgesia, Lidoderm patch Monitor BP, initiate lisinopril if with persistent BP elevation Follow official CT chest results Pulmonary consult Re: Left pleural effusion DVT prophylaxis Coumadin INR goal between 2 and 3 if no procedure planned from pulmonology Full code Text document was generated using [employer] voice recognition software. It may contain grammatical or spelling errors. Kindly contact undersigned for clarification of any documentation item in question. History of Present Illness Chief Complaint: Left flank pain/shortness of breath Primary Care Provider: [facility] New MR account inadvertently created at the ER by error. Patient has an old account, MR number [id number]. Accounts to be merged in a.m. History obtained from patient and records. Medical history significant for on pulmonary embolism on Coumadin, chronic anemia (baseline hemoglobin of 9), mood disorder, prediabetes, past tobacco abuse. Last confinement May 05-2020 for hypoxemic respiratory failure secondary to extensive pulmonary embolism with pulmonary infarcts. CAT scan also showed right upper lobe internal cavitation as well as left lung base consolidation representing developing infarct and infectious/inflammatory pneumonitis. Blood cultures and TB QuantiFERON gold test were negative. Patient completed Ceftriaxone and Azithromycin course. Follow-up CAT scan recommended by new patient escort after 3 months. Lifelong anticoagulation recommended. Patient discharged on Eliquis but later transitioned to Coumadin at correctional facility. Last night, patient noted recurrence of pleuritic left mid back/flank pain reminiscent of pain from admission 3 weeks ago. No fever, no chills, no cough, no recent trauma history. Patient brought to the ER for further evaluation. 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 Allergies Allergy/AdvReac Type Severity Reaction Status Date / Time No Known Allergies Allergy Unverified 05/24/21 21:49 Home Medications Medication Instructions Recorded Confirmed Type acetaminophen 500 mg tablet 1,000 mg PO BID 05/24/21 05/24/21 History (Tylenol Extra Strength) ciclesonide 80 mcg/actuation 1 puff INHALATION BID 05/24/21 05/24/21 History aerosol inhaler (Alvesco) ferrous sulfate 325 mg (65 mg 325 mg PO DAILY 05/24/21 05/24/21 History iron) tablet levalbuterol tartrate 45 2 inh INHALATION Q6H PRN 05/24/21 05/24/21 History mcg/actuation aerosol inhaler (Xopenex HFA) lithium carbonate 450 mg 450 mg PO BID 05/24/21 05/24/21 History tablet,extended release polyethylene glycol 3350 17 17 g PO DAILY PRN 05/24/21 05/24/21 History gram/dose oral powder (Miralax) saliva stimulant comb. no.4 2 spray PO QID PRN 05/24/21 05/24/21 History sennosides 8.6 mg-docusate sodium 1 tab-cap PO BID 05/24/21 05/24/21 History 50 mg tablet (Senna Plus) thiamine HCl (vitamin B1) 100 mg 100 mg PO DAILY 05/24/21 05/24/21 History tablet warfarin 2.5 mg tablet 2.5 mg PO HS 05/24/21 05/24/21 History warfarin 4 mg tablet 4 mg PO HS 05/24/21 05/24/21 History Past Med/Surg History Social History Smoking Status: Former smoker Second Hand Exposure: No; Do You Dip or Chew Tobacco: No; Hx Alcohol Use: No Hx Substance Use: No Preferred Language: Pashto [employer] Required: No Beliefs That Will Affect Care: None Current Living Situation: Other Current Living Situation Comment: [employer] Other Information That Helps Us Care for You: No Feels Safe at Home: Yes Assistive Devices: None Review of Systems Review of Systems: As per HPI, all 10 systems reviewed, all other ROS negative Physical Exam Physical Exam: GENERAL: Slightly uncomfortable, obese, no respiratory distress SKIN: Pallor, warm HEENT: Pale palpebral conjunctivae, no ptosis, dry buccal mucosa NECK : Supple, short neck, no tenderness CHEST : Decreased breath sounds, minimal tenderness left chest wall HEART : RRR, no obvious murmurs ABDOMEN: Some distention, nontender EXTREMITIES : No LE swelling/tenderness, no other conspicuous deformities noted NEUROLOGIC : Coherent, no facial asymmetry, no other gross focality Results & Data Results & Data ([facility]) Vital Signs (Past 12 Hours) Vital Signs Temp Pulse Resp BP Pulse Ox 05/24/21 18:18 36.7 C 111 H 20 162/98 H 97 Laboratory Results Laboratory Results WBC 10.01 K/uL (4.8-10.8) 05/24/21 19: RBC 4.58 M/uL (4.7-6.1) L 05/24/21 19: Hgb 12.5 g/dL (14.0-18.0) L 05/24/21: Hct 39.0 % (42-52) L 05/24/21: MCV 85.2 fL (80-100) 05/24/21 19: MCH 27.3 pg (25-34) 05/24/21: MCHC 32.1 g/dL (32-36) 05/24/21: RDW Std Deviation 43.4 fL (36.4-46.3) 05/24/21 19: RDW Coeff of Aleksandr 14.1 % (11.5-14.5) 05/24/21: Plt Count 511 K/uL (130-400) H 05/24/21 19: MPV 8.1 fL (7.4-10.4) 05/24/21 19: PT 22.1 Seconds (9.0-12.0) H 05/24/21 21:29 INR 2.3 (0.9-1.1) H 05/24/21 21:29 Sodium 139 mmol/L (136-145) 05/24/21 19: Potassium 3.9 mmol/L (3.5-5.1) 05/24/21 19: Chloride 109 mmol/L (98-107) H 05/24/21: Carbon Dioxide 23 mmol/L (21-32) 05/24/21 19: Anion Gap 7.0 (3-11) 05/24/21 19:27 BUN 11 mg/dl (7-18) 05/24/21 19: Creatinine 1.37 mg/dl (0.6-1.4) 05/24/21: Est Cr Clr Drug Dosing 96.2 ml/min 05/24/21: Est GFR ( Amer) 75.8 ml/min 05/24/21: Est GFR (Non-Af Amer) 65.4 ml/min 05/24/21: BUN/Creatinine Ratio 8.0 (10-20) L 05/24/21: Glucose 94 mg/dl (70-99) 05/24/21: Calcium 9.4 mg/dl (8.5-10.1) 05/24/21: Troponin I < 0.015 ng/ml (0-0.045) 05/24/[address] chest initial read: Moderate left pleural effusion with adjacent consolidation and atelectasis. Irregular low-attenuation changes and air in the collapsed lung, could be fromnecrosis/necrotizing pneumonia/abscess. No radiodense gallstones or pancreatitis. Unremarkable appendix. Distended bladder. 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 EKG as per my interpretation : Rate 90, NSR, normal axis, T wave abnormalities lateral and septal leads, low voltage
[2021-05-24 23:12] LABS: Albumin Level 3.2 gm/dl (3.4-5.0); Magnesium 2.5 mg/dl (1.8-2.4)
[2021-05-24 23:17] LABS: Aspartate Aminotransferase 13 U/L (15-37); Bilirubin,Total 0.2 mg/dl (0.2-1); Lipase 95 U/L (73-393); Total Protein 8.2 gm/dl (6.4-8.2)
[2021-05-24] MEDS ORDERED: ACETAMINOPHEN 325 MG TAB PO PRN (23:17)
[2021-05-24] MEDS ORDERED: PROMETHAZINE HCL 12.5 MG in SODIUM CHLORIDE 0.9% 50 ML IV PRN (23:17)
[2021-05-24 23:21] LABS: Alanine Aminotransferase 18 U/L (12-78); Alkaline Phosphatase 97 U/L (45-117); Bilirubin Direct < 0.1 mg/dl (0-0.2)
[2021-05-25] MEDS ORDERED: NSS + 20MEQ KCL 20 MEQ/1,000 ML BAG IV ONE (01:00)
[2021-05-25] MEDS ORDERED: POLYETHYLENE (MIRALAX) 17 GM PACK PO PRN (01:20)
[2021-05-25] MEDS ORDERED: LEVALBUTEROL TARTRATE 15 GM HFA.AER.AD INH PRN (01:20)
[2021-05-25] MEDS: traMADol HCL 50 MG TABLET PO PRN ×3 (01:44→22:55)
[2021-05-25] MEDS: lisinopril 2.5 MG TAB PO SCH (02:44)
[2021-05-25] MEDS: LIDOCAINE 5% 1 PATCH TD SCH ×2 (02:44→10:47)
[2021-05-25] MEDS ORDERED: Influenza Vaccine (Fluarix) 0.5 ML SYR (Standard Dose) IM ONE (05:30)
[2021-05-25 06:36] LABS: Appearance Urine Clear (Clear); Bilirubin Urine Negative (Negative); Blood Urine Negative (Negative); Color Urine Yellow; Glucose Urine UA Negative (Negative); Ketones Urine Negative (Negative); Leukocyte Esterase Urine Negative (Negative); Nitrite Urine Negative (Negative); Protein Urine Negative (Negative); Specific Gravity Urine > 1.045 (1.000-1.030); Urobilinogen Urine Negative (Negative); pH Urine 6.5 (4.5-7.5)
[2021-05-25 07:25] LABS: Basophils # (auto) 0.03 K/uL (0-0.2); Basophils % (auto) 0.4 %; Eosinophils # (auto) 0.38 K/uL (0-0.5); Eosinophils % (auto) 5.5 %; Hematocrit (blood only) 32.6 % (42-52); Hemoglobin 10.5 g/dL (14.0-18.0); Immature Granulocytes # (auto) 0.01 K/uL (0.00-0.02); Immature Granulocytes % (auto) 0.1 %; Lymphocytes # (auto) 1.23 K/uL (1.2-3.4); Lymphocytes % (auto) 17.8 %; Mean Corpuscular Hemoglobin 27.1 pg (25-34); Mean Corpuscular Hgb Conc 32.2 g/dL (32-36); Mean Platelet Volume 8.1 fL (7.4-10.4); Monocytes # (auto) 0.49 K/uL (0.11-0.59); Monocytes % (auto) 7.1 %; Neutrophils # (auto) 4.78 K/uL (1.4-6.5); Neutrophils % (auto) 69.1 %; Platelet Count 434 K/uL (130-400); RDW Coefficient of Variation 14.6 % (11.5-14.5); RDW Standard Deviation 44.9 fL (36.4-46.3); Red Blood Count 3.88 M/uL (4.7-6.1); White Blood Count 6.92 K/uL (4.8-10.8)
[2021-05-25 07:35] LABS: INR 2.2 (0.9-1.1); Prothrombin Time 21.4 Seconds (9.0-12.0)
--- NOTE | 2021-05-25 07:47 | CT Scan Report ---
CT angio chest PE protocol CLINICAL HISTORY: left sided pain, SOB, hx of PE COMPARISON STUDY: Previous CTA chest from 05/05/2021 CT DOSE: 1742.21 mGy.cm TECHNIQUE: CT Angio of the chest was performed.followed by image post processing with coronal, and s agittal MIP reformats. Contrast Volume: Optiray 320, 120 ml FINDINGS: Vasculature: Compared to previous examination, there has been partial resolution of bilateral pulmona ry emboli with residual emboli seen particularly in the right lower lobe pulmonary arteries. Residual emboli are also seen involving left upper lobe pulmonary artery branches. No new pulmonary emboli id entified. Airway: The airway is clear. No endobronchial lesion is identified. Lungs and pleural: Compared to the previous examination, there has been interval decrease in size of previously identified wedge-shaped focus of subpleural consolidation in the right upper lobe characte ristic of decreased size of lung infarct. However, there has been interval development of a moderatel y large left pleural effusion with compressive atelectasis/collapse involving the left lower lobe. Th ere is abnormal low at attenuation changes within the collapsed lung and the presence of a lung infar ct and necrosis/infarct cannot be excluded. The remainder of the lungs are clear. No other sites of a lveolar opacity are seen. There is no right pleural effusion. The previously identified 7 mm nodular density within the right upper lobe with cavitation has resolv ed and was most likely infectious in etiology. No new nodular densities are identified. Mediastinum: There is no evidence for pathologic adenopathy. The heart size is within normal limits. There is no evidence for right heart strain. The thoracic aorta is within normal limits. There is no evidence for pericardial effusion. Upper abdomen:The adrenal glands are normal bilaterally. Osseous structures: There is no acute osseous pathology. Impression: 1. Compared to previous examination, there has been partial resolution of previously identified bilat eral pulmonary emboli. Residual emboli are seen particularly involving the right lower lobe. No new e mboli are identified. 2. Interval development of moderately large left pleural effusion with atelectasis/collapse involving the left lower lobe. There is additional low attenuation changes within the collapsed lung and the p resence of lung infarct and necrosis cannot be excluded. 3. Interval decrease in size of right upper lobe lung infarct. 4. Resolution of small cavitating pulmonary nodule. ACT 112: Negative or not required by law. Electronically signed by: Daniel Conrad M.D. 05/25/2021 7:45 AM
[2021-05-25 07:54] LABS: Creatinine Clr Calc Pharmacy 108.7 ml/min; Est GFR (African American) 83.9 ml/min; Est GFR (Non-African American) 72.4 ml/min; Potassium 3.9 mmol/L (3.5-5.1)
[2021-05-25] MEDS: FLUTICASONE FUROATE 100MCG 14 PUFFS/INHALER INH SCH (08:48)
[2021-05-25] MEDS: FERROUS SULFATE 325 MG TAB PO SCH (08:48)
--- NOTE | 2021-05-25 09:13 | CT Scan Report ---
CT abd pelvis wo con CLINICAL HISTORY: L flank pain TECHNIQUE: Helical axial images of the abdomen and pelvis were obtained. Automated dose lowering tech niques and/or adjustment according to patient size were utilized for this exam. This exam was perfor med without intravenous contrast. COMPARISON: Comparison is made to CT abdomen and pelvis 05/05/2021 FINDINGS: Lower chest: There is a left effusion with associated atelectasis and/or consolidation. Liver: Unremarkable. No focal lesions are seen. Gallbladder and biliary tree: No calcified gallstones. Normal caliber wall. No intra- or extrahepatic biliary ductal dilation. Pancreas: Unremarkable, no focal lesions. Spleen: Unremarkable. Adrenals: Unremarkable. Kidneys and ureters: Subcentimeter hypodensities are too small to characterize. No evidence of ureter ic obstruction or hydronephrosis. Bladder: Bladder is distended. Reproductive organs: Unremarkable. Bowel: Unremarkable appearance of the bowel. The appendix is normal. Lymph nodes Retroperitoneal: Bonnie hepatis nodes noted measuring 12 mm. Mesenteric: Subcentimeter lymph nodes are noted. Pelvic: Unremarkable. Peritoneum: Normal Vessels: Unremarkable. Abdominal wall: Unremarkable. Bones: Unremarkable. IMPRESSION: Moderate left pleural effusion with underlying atelectasis and likely consolidation. No acute abnorma lity in the abdomen. ACT 112: Negative or not required by law. Electronically signed by: Melecio Dudley M.D. 05/25/2021 9:12 AM
--- NOTE | 2021-05-25 09:31 | Pulmonary Consultation ---
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 This could be secondary to pulmonary infarcts. Agree that there is some hypoattenuation on the CT scan concerning for possible underlying necrotic lung cannot exclude an infectious etiology. Thoracentesis is indicated however the patient's INR needs to be less than 1.5. Recommendations: 1. Communicated with the hospitalist service. Will perform thoracentesis once INR is less than 1.5. Will defer to the hospitalist as to whether or not Kcentra, FFP, or watchful waiting is indicated to allow his INR to drift to the low 1.5. Once the thoracentesis is completed, will send fluid for microbiologic and cytologic analysis. 2. Chest pain: Secondary to the pleural effusion as well as the potential necrotic lung. Pain management per the primary service. Procalcitonin is negative so would hold antibiotics for now pending analysis of the pleural fluid. 3. PE: As per my previous note, lifelong anticoagulation is recommended. Can restart Coumadin or other alternative anticoagulation once procedures are completed. Discussed with patient at bedside as well as communicated results to the attending physician. We will continue to follow with plans for thoracentesis once INR is at or below 1.5. History of Present Illness Attending Physician: Bertrand Joseph MD History of Present Illness Asked by hospitalist to evaluate this patient with pleural effusion. History is obtained from review electronic medical record as well as discussion with the patient bedside. The patient is a 35-year-old incarcerated male who I initially met last month when he was admitted with submassive PE. He was anticoagulated on Coumadin. A CT scan at that point time showed probable pulmonary infarcts. He returned to the hospital having been transitioned to Coumadin with a therapeutic INR complaining of chest discomfort. Repeat CT scan demonstrated a moderate sized left pleural effusion. The patient was admitted to the hospitalist service for additional management and pulmonary was consulted regarding the patient's pleural effusion. The patient's main complaint is chest discomfort. He is not having any fevers chills or night sweats. He denies cough or sputum production. He was treated with a course of antibiotics during his last hospitalization. Allergies Allergy/AdvReac Type Severity Reaction Status Date / Time No Known Allergies Allergy Verified 05/25/21 07:25 Home Medications Medication Instructions Recorded Confirmed Type artificial saliva (yerba adri and 2 spray MUCOUS MEMBRANE QID PRN 05/05/21 05/05/21 History lytes) spray (Mouth Kote) ciclesonide 80 mcg/actuation 1 puff INHALATION BID 05/05/21 05/05/21 History aerosol inhaler (Alvesco) doxepin 100 mg capsule 200 mg PO HS 05/05/21 05/05/21 History levalbuterol tartrate 45 2 inh INHALATION QID PRN 05/05/21 05/05/21 History mcg/actuation aerosol inhaler (Xopenex HFA) lithium carbonate 450 mg 450 mg PO BID 05/05/21 05/05/21 History tablet,extended release propranolol 20 mg tablet 20 mg PO BID 05/05/21 05/05/21 History apixaban 5 mg tablet (Eliquis) 5 mg PO Q12H #60 tab 05/11/21 Rx azithromycin 250 mg tablet 250 mg PO QAM #4 tab 05/11/21 Rx ferrous sulfate 325 mg (65 mg 325 mg PO DAILY #30 tab 05/11/21 Rx iron) tablet,delayed release oxycodone-acetaminophen 5 mg-325 2 tab PO Q6H PRN #30 tab 05/11/21 Rx mg tablet (Percocet) polyethylene glycol 3350 17 gram 17 g PO DAILY #30 ea 05/11/21 Rx oral powder packet (Miralax) sennosides 8.6 mg-docusate sodium 2 tab PO QAM #30 tab 05/11/21 Rx 50 mg tablet (Senokot-S) acetaminophen 500 mg tablet 1,000 mg PO BID 05/24/21 05/24/21 History (Tylenol Extra Strength) ciclesonide 80 mcg/actuation 1 puff INHALATION BID 05/24/21 05/24/21 History aerosol inhaler (Alvesco) ferrous sulfate 325 mg (65 mg 325 mg PO DAILY 05/24/21 05/24/21 History iron) tablet levalbuterol tartrate 45 2 inh INHALATION Q6H PRN 05/24/21 05/24/21 History mcg/actuation aerosol inhaler (Xopenex HFA) lithium carbonate 450 mg 450 mg PO BID 05/24/21 05/24/21 History tablet,extended release polyethylene glycol 3350 17 17 g PO DAILY PRN 05/24/21 05/24/21 History gram/dose oral powder (Miralax) saliva stimulant comb. no.4 2 spray PO QID PRN 05/24/21 05/24/21 History sennosides 8.6 mg-docusate sodium 1 tab-cap PO BID 05/24/21 05/24/21 History 50 mg tablet (Senna Plus) thiamine HCl (vitamin B1) 100 mg 100 mg PO DAILY 05/24/21 05/24/21 History tablet warfarin 2.5 mg tablet 2.5 mg PO HS 05/24/21 05/24/21 History warfarin 4 mg tablet 4 mg PO HS 05/24/21 05/24/21 History Patient History Medical History Bipolar I disorder Creatinine elevation Pulmonary embolism Social History (System 05/25/21 @ 07:25 by Preethi Rodríguez) Smoking Status: Former smoker Second Hand Exposure: No; Do You Dip or Chew Tobacco: No; Hx Alcohol Use: No Hx Substance Use: No Preferred Language: Slovenian Language Path Required: No Beliefs That Will Affect Care: None Current Living Situation: Other Current Living Situation Comment: [place] Other Information That Helps Us Care for You: No Feels Safe at Home: Yes Assistive Devices: None Review of Systems Review of Systems: All systems reviewed & are unremarkable except as noted in Subjective Physical Exam Constitutional: WD/WN, vitals as above Neck: trachea midline, no thyromegaly Respiratory: normal respiratory effort and + dullness to percussion; no respiratory distress and no labored breathing Decreased breath sounds with dullness to percussion left lung base Cardiovascular: RRR, no murmur, no edema Gastrointestinal (Abdomen): normal bowel sounds, soft, nontender, no hepatosplenomegaly Musculoskeletal: Extremities: extremities normal to inspection Skin: no rashes, warm and dry Neurologic: Nonfocal exam Lymphatic: no cervical lymphadenopathy Results & Data Results & Data ([facility]) Vital Signs (Past 12 Hours) Vital Signs Temp Pulse Pulse Pulse Resp BP BP 05/25/21 07:33 36.7 C 79 16 05/25/21 03:56 36.7 C 86 18 05/25/21 02:45 05/25/21 01:27 37 C 80 16 145/90 H 05/25/21 01:19 86 05/25/21 00:55 86 18 158/90 H 05/24/21 23:29 79 18 164/95 H BP Pulse Ox 05/25/21 07:33 141/86 H 95 05/25/21 03:56 123/76 96 05/25/21 02:45 125/84 05/25/21 01:27 95 05/25/21 01:19 05/25/21 00:55 96 05/24/21 23:29 96 Laboratory Results 05/25/21 07:09 05/25/21 07:[address] of the chest independently reviewed. 05/24/21 and compared to CTA 05/05/21 CT angio chest PE protocol CLINICAL HISTORY: left sided pain, SOB, hx of PE COMPARISON STUDY: Previous CTA chest from 05/05/2021 CT DOSE: 1742.21 mGy.cm TECHNIQUE: CT Angio of the chest was performed.followed by image post processing with coronal, and sagittal MIP reformats. Contrast Volume: Optiray 320, 120 ml FINDINGS: Vasculature: Compared to previous examination, there has been partial resolution of bilateral pulmonary emboli with residual emboli seen particularly in the right lower lobe pulmonary arteries. Residual emboli are also seen involving left upper lobe pulmonary artery branches. No new pulmonary emboli identified. Airway: The airway is clear. No endobronchial lesion is identified. Lungs and pleural: Compared to the previous examination, there has been interval decrease in size of previously identified wedge-shaped focus of subpleural consolidation in the right upper lobe characteristic of decreased size of lung infarct. However, there has been interval development of a moderately large left pleural effusion with compressive atelectasis/collapse involving the left lower lobe. There is abnormal low at attenuation changes within the collapsed lung and the presence of a lung infarct and necrosis/infarct cannot be excluded. The remainder of the lungs are clear. No other sites of alveolar opacity are seen. There is no right pleural effusion. The previously identified 7 mm nodular density within the right upper lobe with cavitation has resolved and was most likely infectious in etiology. No new nodular densities are identified. Mediastinum: There is no evidence for pathologic adenopathy. The heart size is within normal limits. There is no evidence for right heart strain. The thoracic aorta is within normal limits. There is no evidence for pericardial effusion. Upper abdomen:The adrenal glands are normal bilaterally. Osseous structures: There is no acute osseous pathology. Impression: 1. Compared to previous examination, there has been partial resolution of previously identified bilateral pulmonary emboli. Residual emboli are seen particularly involving the right lower lobe. No new emboli are identified. 2. Interval development of moderately large left pleural effusion with atelectasis/collapse involving the left lower lobe. There is additional low attenuation changes within the collapsed lung and the presence of lung infarct and necrosis cannot be excluded. 3. Interval decrease in size of right upper lobe lung infarct. 4. Resolution of small cavitating pulmonary nodule. PG Care Time/CCT Total # of Minutes Spent Total Time Spent with Patient: Total time spent is greater than 50% in coordination of care (as documented) at patient's floor/unit and/or counseling patient: Coding Level of Care Code 34727 Inpt Consult Level 4 Diagnoses Pleural effusion J90 Abnormal CT scan of lung R91.8 Pulmonary embolism I26.99 Pleurisy R09.1
--- NOTE | 2021-05-25 13:39 | Electrocardiogram Report ---
Test Reason : Blood Pressure : / mmHG Vent. Rate : 089 BPM Atrial Rate : 089 BPM P-R Int : 170 ms QRS Dur : 098 ms QT Int : 358 ms P-R-T Axes : 000 -11 156 degrees QTc Int : 435 ms Poor data quality, interpretation may be adversely affected Normal sinus rhythm Low voltage QRS Nonspecific T wave abnormality Abnormal ECG No previous ECGs available Confirmed by Reginald Frazier ([id number]) on 05/25/2021 1:38:56 PM Referred By: [facility] Confirmed By:Reginald Frazier
--- NOTE | 2021-05-25 17:30 | Hospitalist Progress Note ---
Date of Service May 25, 2021 Assessment & Plan (1) Upper back pain on left side: (2) Pleural effusion: Plan: 35-year-old male with a history of recently diagnosed acute pulmonary embolism, on Coumadin, etc. Presented with left-sided back pain. (1) Pleural effusion: Plan: Pleuritic chest pain from left pleural effusion hx pneumonia status post treatment --Pulmonary service consulted Plan to await until INR is 1.5 or below, before proceeding with thoracentesis --Pain control Recently diagnosed pulmonary embolism on Coumadin --INR 2.2 Hold Coumadin for now in anticipation for thoracentesis Prediabetes, hemoglobin A1c of 5.7 from last month Mood disorder, at baseline Chronic anemia, hemoglobin improved from baseline Past tobacco abuse DVT prophylaxis INR 2.2, Coumadin on hold Full code Admission and Anticipated Discharge Date Admission Date: May 24, 2021 Subjective Follow-up for left-sided chest pain, pleural effusion, history of recent PE, etc. Seen with cards at the bedside Patient nondistressed, sitting up States he has intermittent left-sided back pain, worse with inspiration No shortness of breath, palpitations, dizziness, chest pain No bleeding No other symptoms Review of Systems Review of Systems: all noted and negative except for above Physical Exam Physical Exam: General- oriented x 3, not in distress, speaks in sentences with no effort or accessory muscle use Eyes- anicteric Neck- no JVD Lungs-decreased breath sounds on the left, clear on the right No wheezing Heart- normal rate, regular rhythm; no murmurs Abdomen- normal bowel sounds, nondistended, soft, nontender Extremities- no pretibial edema, no calf tenderness Neuro- alert, oriented x 3; no gross focal neurologic deficits Skin- warm & dry Results & Data Results & Data ([facility]) Vital Signs (Past 12 Hours) Vital Signs Temp Pulse Pulse Resp BP Pulse Ox 05/25/21 16:00 36.9 C 78 90 16 117/77 95 05/25/21 12:27 36.7 C 84 20 139/85 95 05/25/21 08:00 91 H 05/25/21 07:33 36.7 C 79 16 141/86 H 95 all noted and reviewed including below
[2021-05-25] MEDS: HYDROCODONE/ACETAMOPHEN 5/325MG TAB PO PRN (18:36)
[2021-05-26] MEDS: FERROUS SULFATE 325 MG TAB PO SCH (08:16)
[2021-05-26] MEDS: FLUTICASONE FUROATE 100MCG 14 PUFFS/INHALER INH SCH (08:16)
[2021-05-26] MEDS: lisinopril 2.5 MG TAB PO SCH (08:17)
[2021-05-26] MEDS: LIDOCAINE 5% 1 PATCH TD SCH (08:17)
[2021-05-26] MEDS: HYDROCODONE/ACETAMOPHEN 5/325MG TAB PO PRN ×2 (08:18→14:07)
[2021-05-26 09:45] LABS: Basophils # (auto) 0.04 K/uL (0-0.2); Basophils % (auto) 0.5 %; Eosinophils # (auto) 0.41 K/uL (0-0.5); Eosinophils % (auto) 5.6 %; Hematocrit (blood only) 34.7 % (42-52); Hemoglobin 10.6 g/dL (14.0-18.0); Immature Granulocytes # (auto) 0.02 K/uL (0.00-0.02); Immature Granulocytes % (auto) 0.3 %; Lymphocytes # (auto) 1.27 K/uL (1.2-3.4); Lymphocytes % (auto) 17.3 %; Mean Corpuscular Hgb Conc 30.5 g/dL (32-36); Mean Corpuscular Volume 88.3 fL (80-100); Mean Platelet Volume 8.3 fL (7.4-10.4); Monocytes # (auto) 0.39 K/uL (0.11-0.59); Monocytes % (auto) 5.3 %; Platelet Count 430 K/uL (130-400); RDW Coefficient of Variation 14.8 % (11.5-14.5); RDW Standard Deviation 47.8 fL (36.4-46.3); Red Blood Count 3.93 M/uL (4.7-6.1); White Blood Count 7.33 K/uL (4.8-10.8)
[2021-05-26 09:55] LABS: Prothrombin Time 18.8 Seconds (9.0-12.0)
[2021-05-26 10:18] LABS: BUN Creatinine Ratio 5.1 (10-20); Calcium 8.8 mg/dl (8.5-10.1); Creatinine Clr Calc Pharmacy 113.7 ml/min; Est GFR (African American) 89.9 ml/min; Est GFR (Non-African American) 77.6 ml/min; Potassium 4.2 mmol/L (3.5-5.1)
[2021-05-26] MEDS ORDERED: Heparin IV Adult Wt-Based Standard *NO* Bolus Protocol IV SCH (13:00)
[2021-05-26] MEDS: HEPARIN SODIUM/DEXTROSE 25,000 UNITS/500 ML BAG IV SCH (14:03)
[2021-05-26 14:19] LABS: Partial Thromboplastin Ratio 1.5; Partial Thromboplastin Time 38.7 Seconds (21.0-31.0)
[2021-05-26] MEDS: traMADol HCL 50 MG TABLET PO PRN ×2 (17:34→20:58)
[2021-05-26 20:28] LABS: INR 1.8 (0.9-1.1); Prothrombin Time 17.3 Seconds (9.0-12.0)
[2021-05-26 20:33] LABS: Partial Thromboplastin Ratio 2.5
[2021-05-26 20:34] LABS: Partial Thromboplastin Time 66.2 Seconds (21.0-31.0)
[2021-05-26] MEDS ORDERED: PHYTONADIONE 2.5 MG in SODIUM CHLORIDE 0.9% 50 ML IV ONE (23:46)
[2021-05-27] MEDS: HYDROCODONE/ACETAMOPHEN 5/325MG TAB PO PRN ×3 (01:04→17:43)
[2021-05-27] MEDS: HEPARIN SODIUM/DEXTROSE 25,000 UNITS/500 ML BAG IV SCH (05:07)
[2021-05-27] MEDS: traMADol HCL 50 MG TABLET PO PRN ×3 (05:08→20:12)
[2021-05-27 07:45] LABS: Basophils # (auto) 0.02 K/uL (0-0.2); Basophils % (auto) 0.3 %; Eosinophils # (auto) 0.34 K/uL (0-0.5); Eosinophils % (auto) 5.6 %; Hematocrit (blood only) 33.8 % (42-52); Hemoglobin 10.5 g/dL (14.0-18.0); Immature Granulocytes # (auto) 0.01 K/uL (0.00-0.02); Immature Granulocytes % (auto) 0.2 %; Lymphocytes # (auto) 1.99 K/uL (1.2-3.4); Lymphocytes % (auto) 32.9 %; Mean Corpuscular Hemoglobin 27.1 pg (25-34); Mean Corpuscular Volume 87.3 fL (80-100); Mean Platelet Volume 8.2 fL (7.4-10.4); Monocytes # (auto) 0.41 K/uL (0.11-0.59); Monocytes % (auto) 6.8 %; Neutrophils # (auto) 3.28 K/uL (1.4-6.5); Neutrophils % (auto) 54.2 %; Platelet Count 384 K/uL (130-400); Red Blood Count 3.87 M/uL (4.7-6.1); White Blood Count 6.05 K/uL (4.8-10.8)
[2021-05-27 07:53] LABS: Mean Corpuscular Hgb Conc 31.1 g/dL (32-36)
[2021-05-27 07:55] LABS: INR 1.4 (0.9-1.1); Partial Thromboplastin Ratio 2.7; Prothrombin Time 14.1 Seconds (9.0-12.0)
[2021-05-27 08:23] LABS: BUN Creatinine Ratio 9.4 (10-20); Calcium 8.5 mg/dl (8.5-10.1); Creatinine Clr Calc Pharmacy 126.5 ml/min; Est GFR (African American) 102.2 ml/min; Est GFR (Non-African American) 88.2 ml/min; Potassium 3.9 mmol/L (3.5-5.1)
[2021-05-27] MEDS: LIDOCAINE 5% 1 PATCH TD SCH (08:39)
[2021-05-27] MEDS: lisinopril 2.5 MG TAB PO SCH (08:39)
[2021-05-27] MEDS: FERROUS SULFATE 325 MG TAB PO SCH (08:39)
[2021-05-27] MEDS: FLUTICASONE FUROATE 100MCG 14 PUFFS/INHALER INH SCH (08:39)
[2021-05-27 09:07] LABS: Partial Thromboplastin Time 72.1 Seconds (21.0-31.0)
--- NOTE | 2021-05-27 09:46 | Hospitalist Progress Note ---
Date of Service May 27, 2021 Assessment & Plan (1) Upper back pain on left side: (2) Pleural effusion: Plan: 35-year-old male with a history of recently diagnosed acute pulmonary embolism, on Coumadin, etc. Presented with left-sided back pain. (1) Pleural effusion: Plan: Pleuritic chest pain from left pleural effusion hx pneumonia status post treatment --Pulmonary service consulted --Vitamin K IV 2 mg given yesterday, with heparin drip INR today 1.4 Status post thoracentesis, drainage of 1000 mL of bloody pleural fluid Suspect likely secondary to PE Follow-up pleural fluid studies, pathology Resume heparin at [address] Najera If stable, transition to Coumadin with Lovenox bridge tomorrow Recently diagnosed pulmonary embolism on Coumadin --Management of anticoagulation as noted above Prediabetes, hemoglobin A1c of 5.7 from last month Mood disorder, at baseline Chronic anemia, hemoglobin improved from baseline Past tobacco abuse DVT prophylaxis INR 2.2, Coumadin on hold Full code Disposition Anticipate return to correction[facility] facility tomorrow when medically stable Admission and Anticipated Discharge Date Admission Date: May 26, 2021 Subjective Follow-up for pleural effusion, recent PE, etc. Seen resting in bed, sitting up, not in distress, comfortable States he still has left-sided posterior chest pain No shortness of breath, no palpitations, no dizziness No fevers or chills No cough No other symptoms Review of Systems Review of Systems: all noted and negative except for above Physical Exam Physical Exam: General- oriented x 3, not in distress, speaks in sentences with no effort or accessory muscle use Eyes- anicteric Neck- no JVD Lungs-decreased breath sounds on the left lung wolf, clear on the right, no wheezing Heart- normal rate, regular rhythm; no murmurs Abdomen- normal bowel sounds, nondistended, soft, nontender Extremities- no pretibial edema, no calf tenderness Neuro- alert, oriented x 3; no gross focal neurologic deficits Skin- warm & dry Results & Data Results & Data ([facility]) Vital Signs (Past 12 Hours) Vital Signs Temp Pulse Pulse Resp BP Pulse Ox Pulse Ox 05/27/21 07:54 75 05/27/21 07:34 95 05/27/21 07:13 36.8 C 81 20 138/86 94 05/27/21 05:11 36.7 C 77 20 110/69 94 05/26/21 22:57 36.9 C 93 H 20 141/84 H 94 05/26/21 22:55 93 H all noted and reviewed including below
--- NOTE | 2021-05-27 13:33 | Procedure Note ---
Procedure Note Date of Service May 27, 2021 Note Procedure: Diagnostic therapeutic ultrasound-guided catheter thoracentesis Business Services Specialist Sales: Dr. Eulalio Najera Indication: Pleural effusion Consent: Signed by patient and verified with timeout prior to procedure Anesthesia: 8 mL's 1% lidocaine without epinephrine local. Procedure: Consent was verified and timeout performed. Appropriate imaging studies were reviewed prior to the procedure. Patient was placed in a seated position and limited thoracic ultrasound was performed of the L chest. See separate imaging. Site appropriate for thoracentesis was selected. The skin was prepped and draped in normal sterile fashion. Lidocaine was used for local analgesia. Fluid was aspirated via the finder needle. A small skin tim was made with the scalpel and the catheter over the needle apparatus was advanced over the rib into the pleural space. Using the syringe one-way valve system, a total of 1000 mL's of bloody fluid was removed. Procedure was terminated due to inability to withdraw additional fluid. The catheter was removed and observed to be intact. A sterile dressing was applied. Post procedure chest x-ray was ordered. Fluid was sent for cytology, cell count and differential, LDH, glucose, pH and TP. The patient tolerated the procedure well without obvious complication Coding CPT Codes Pulmonary/Thoracic - Pulmonary and Thoracic: 22035 Thoracentesis w imaging ([id number]) [facility] Procedure Codes (Charges) Pulmonary/Thoracic Procedure 1: Pulmonary and Thoracic: 00332 Thoracentesis w imaging
--- NOTE | 2021-05-27 13:39 | Pulmonology Progress Note ---
Date of Service May 27, 2021 Assessment & Plan (1) Pleural effusion: (2) Abnormal CT scan of lung: (3) Pulmonary embolism: (4) Pleurisy: Plan: Impression: 35-year-old male with idiopathic submassive PE on anticoagulation now with pleural effusion. This could be secondary to pulmonary infarcts. Agree that there is some hypoattenuation on the CT scan concerning for possible underlying necrotic lung cannot exclude an infectious etiology. Thoracentesis today with removal of 1000 mL bloody fluid. Recommendations: 1. Pleural effusion: bloody - suspect related to PE and anticoagulation. Await pleural fluid studies and follow up cXR. 2. Chest pain: Should get better with thoracentesis. Pain management per the primary service. 3. PE: As per my previous note, lifelong anticoagulation is recommended. Can restart Coumadin or other alternative anticoagulation once procedures are completed. OK to restart heparin at 1500 today. Discussed with bedside nurse. Can be dismissed from pulmonary perspective. Admission and Anticipated Discharge Date Admission Date: May 26, 2021 Subjective Seen and examined. EMR reviewed. Pt still with some chest discomfort. INR subtx. On heparin gtt. No fevers, chills or sweats. No syncope or presyncope. No LE edema. Physical Exam Constitutional: WD/WN, vitals as above Neck: trachea midline, no thyromegaly Respiratory: normal respiratory effort and + dullness to percussion; no respiratory distress and no labored breathing Cardiovascular: RRR, no murmur, no edema Gastrointestinal (Abdomen): normal bowel sounds, soft, nontender, no hepatosplenomegaly Musculoskeletal: Extremities: extremities normal to inspection Skin: no rashes, warm and dry Lymphatic: no cervical lymphadenopathy Results & Data Results & Data ([facility]) Vital Signs (Past 12 Hours) Vital Signs Temp Pulse Pulse Resp BP Pulse Ox Pulse Ox 05/27/21 11:23 36.9 C 86 20 140/82 94 05/27/21 07:54 75 05/27/21 07:34 95 05/27/21 07:13 36.8 C 81 20 138/86 94 05/27/21 05:11 36.7 C 77 20 110/69 94 Laboratory Results 05/27/21 07:20 05/27/21 07:20 PG Care Time/CCT Total # of Minutes Spent Total Time Spent with Patient: Total time spent is greater than 50% in coordination of care (as documented) at patient's floor/unit and/or counseling patient: Coding Level of Care Code 43016 Subseq Hosp Care Lvl 2 Diagnoses Pleural effusion J90 Abnormal CT scan of lung R91.8 Pulmonary embolism I26.99 Pleurisy R09.1
[2021-05-27 13:45] LABS: Glucose Pleural Fluid 99 mg/dl
[2021-05-27 13:50] LABS: LDH Pleural Fluid 323 U/L; Total Protein Pleural Fluid 4.9 g/dl
--- NOTE | 2021-05-27 13:54 | XRay Report ---
XR chest 1V portable CLINICAL HISTORY: S/P Thoracentesis TECHNIQUE: Single frontal radiograph of the chest was obtained. Comparison: Comparison is made to chest one view 05/10/2021 FINDINGS: No lines and tubes are seen. The cardiomediastinal silhouette is normal. Bibasilar atelectasis is not ed. Interval improvement in left lung base densities, likely status post thoracentesis. IMPRESSION: 1. Bibasilar atelectasis without evidence of acute abnormality. 2. Interval improvement in left effusion without evidence of pneumothorax status post thoracentesis. ACT 112: Negative or not required by law. Electronically signed by: Melecio Dudley M.D. 05/27/2021 1:52 PM
[2021-05-27 14:12] LABS: Appearance Pleural Fluid BLOODY; Basophils, Fluid 0 %; Color Pleural Fluid RED; Eosinophils, Fluid 15 %; Lymphocytes, Fluid 38 %; Mono,Macrophage,Mesothelial 35 %; Neutrophils, Fluid 12 %; RBC Pleural Fluid (A) 141000 /uL; Source Pleural Fluid LEFT LUNG; WBC Pleural Fluid (A) 5763 /uL
[2021-05-27 21:09] LABS: Partial Thromboplastin Ratio 1.5
[2021-05-28] MEDS: HEPARIN SODIUM/DEXTROSE 25,000 UNITS/500 ML BAG IV SCH ×2 (02:42→08:36)
[2021-05-28] MEDS: HYDROCODONE/ACETAMOPHEN 5/325MG TAB PO PRN ×2 (02:42→09:01)
[2021-05-28 03:42] LABS: INR 1.1 (0.9-1.1); Partial Thromboplastin Ratio 1.8; Prothrombin Time 10.8 Seconds (9.0-12.0)
[2021-05-28 04:09] LABS: Partial Thromboplastin Time 47.4 Seconds (21.0-31.0)
[2021-05-28] MEDS: FLUTICASONE FUROATE 100MCG 14 PUFFS/INHALER INH SCH (08:08)
[2021-05-28] MEDS: lisinopril 2.5 MG TAB PO SCH (08:09)
[2021-05-28] MEDS: FERROUS SULFATE 325 MG TAB PO SCH (08:09)
[2021-05-28] MEDS: LIDOCAINE 5% 1 PATCH TD SCH (08:09)
--- NOTE | 2021-05-28 09:17 | Pulmonology Progress Note ---
Date of Service May 28, 2021 Assessment & Plan (1) Pleural effusion: (2) Abnormal CT scan of lung: (3) Pulmonary embolism: (4) Pleurisy: Plan: Impression: 35-year-old male with idiopathic submassive PE on anticoagulation now with pleural effusion. This could be secondary to pulmonary infarcts. Agree that there is some hypoattenuation on the CT scan concerning for possible underlying necrotic lung cannot exclude an infectious etiology. Thoracentesis 05/27 with removal of 1000 mL bloody fluid. Recommendations: 1. Pleural effusion: bloody - suspect related to PE and anticoagulation. Pleural fluid studies show no evidence of infection. Cytology pending but suspect this will be benign. Unlikely that the effusion will reaccumulate. 2. Chest pain: Improved with thoracentesis. Pain management per the primary service. 3. PE: As per my previous note, lifelong anticoagulation is recommended. Pulmonary will sign off at this point time. Feel free to contact us with additional questions or concerns Admission and Anticipated Discharge Date Admission Date: May 26, 2021 Subjective Patient seen and examined. He states he feels his breathing is better. He complains of some continued slight chest discomfort but this is also improved. He is not on oxygen. No fevers chills night sweats. He is able to move without any significant difficulty currently. Review of Systems Review of Systems: All systems reviewed & are unremarkable except as noted in Subjective Physical Exam Constitutional: WD/WN, vitals as above Neck: trachea midline, no thyromegaly Respiratory: normal respiratory effort; no respiratory distress and no labored breathing Cardiovascular: RRR, no murmur, no edema Gastrointestinal (Abdomen): normal bowel sounds, soft, nontender, no hepatosplenomegaly Musculoskeletal: Extremities: extremities normal to inspection Skin: no rashes, warm and dry Lymphatic: no cervical lymphadenopathy Results & Data Results & Data ([facility]) Vital Signs (Past 12 Hours) Vital Signs Temp Pulse Pulse Resp BP Pulse Ox Pulse Ox 05/28/21 07:46 36.8 C 84 16 120/80 94 05/28/21 07:40 74 05/28/21 07:00 92 05/28/21 03:23 36.9 C 88 16 120/79 93 05/27/21 23:18 36.8 C 95 H 17 128/82 92 05/27/21 22:20 88 Laboratory Results 05/27/21 07:20 05/27/21 07:20 Pleural fluid studies: Differential on cell count 12% neutrophils 38% lymphocytes 15% eosinophils and 35% mesothelial cells Total protein 4.9 LDH 323 Glucose 99 Gram stain showed WBCs with few mononuclear cells and no organisms. Cytology pending AFB stains pending. Diagnostic Findings Post procedure chest x-ray independently reviewed. Improved aeration at the left lung base. No pneumothorax PG Care Time/CCT Total # of Minutes Spent Total Time Spent with Patient: Total time spent is greater than 50% in coordination of care (as documented) at patient's floor/unit and/or counseling patient: Coding Level of Care Code 06435 Subseq Hosp Care Lvl 2 Diagnoses Pleural effusion J90 Abnormal CT scan of lung R91.8 Pulmonary embolism I26.99 Pleurisy R09.1
[2021-05-28 10:42] LABS: Basophils # (auto) 0.05 K/uL (0-0.2); Basophils % (auto) 0.6 %; Eosinophils % (auto) 5.1 %; Hematocrit (blood only) 35.5 % (42-52); Hemoglobin 11.1 g/dL (14.0-18.0); Immature Granulocytes # (auto) 0.01 K/uL (0.00-0.02); Immature Granulocytes % (auto) 0.1 %; Lymphocytes % (auto) 25.5 %; Mean Corpuscular Hemoglobin 27.3 pg (25-34); Mean Corpuscular Hgb Conc 31.3 g/dL (32-36); Mean Corpuscular Volume 87.2 fL (80-100); Mean Platelet Volume 8.3 fL (7.4-10.4); Monocytes # (auto) 0.56 K/uL (0.11-0.59); Monocytes % (auto) 7.1 %; Neutrophils # (auto) 4.82 K/uL (1.4-6.5); Neutrophils % (auto) 61.6 %; Platelet Count 391 K/uL (130-400); RDW Coefficient of Variation 14.8 % (11.5-14.5); Red Blood Count 4.07 M/uL (4.7-6.1); White Blood Count 7.84 K/uL (4.8-10.8)
[2021-05-28] MEDS ORDERED: ENOXAPARIN INJ 120 MG/0.8 ML SYR SQ SCH (11:00)
--- NOTE | 2021-05-28 12:33 | Hospitalist Progress Note ---
Date of Service May 28, 2021 Assessment & Plan (1) Upper back pain on left side: (2) Pleural effusion: Plan: 35-year-old male with a history of recently diagnosed acute pulmonary embolism, on Coumadin, etc. Presented with left-sided back pain. (1) Pleural effusion secondary to Pulmonary Embolism Plan: Pleuritic chest pain from left pleural effusion hx pneumonia status post treatment --Pulmonary service consulted -- coumadin reversed with Vitamin K IV 2 mg placed on heparin drip due to very recent acute PE Status post thoracentesis, drainage of 1000 mL of bloody pleural fluid Suspect likely secondary to PE Follow-up final results of pleural fluid studies, pathology -- clinically improve after thoracentesis INR 1.1 on discharge day 05/28/21 resume coumadin with lovenox bridge 120mg SC BID check INR daily -- continue Incentive Spirometry -- ff up with [facility] Phys[facility] Recently diagnosed pulmonary embolism on Coumadin --Management of anticoagulation as noted above Elevated BP -- likely from pain, stress -- improved -- monitor Prediabetes, hemoglobin A1c of 5.7 from last month -- outpatient ff up Mood disorder, at baseline Chronic anemia, hemoglobin improved from baseline Past tobacco abuse Disposition return to correctional facility Admission and Anticipated Discharge Date Admission Date: May 26, 2021 Subjective ff up for L sided pleural effusion, etc seen resting in bed, comfortable sitting up, having lunch states he feels better overall mild pain over the left posterior chest no dyspnea, cough, fever/chills no other pain no palpitations, dizziness denies other symptoms states he is ready for discharge today Review of Systems Review of Systems: all noted and negative except for above Physical Exam Physical Exam: General- oriented x 3, not in distress, speaks in sentences with no effort or accessory muscle use Eyes- anicteric Neck- no JVD Lungs- clear BS BL no rales/wheezing Heart- normal rate, regular rhythm; no murmurs Abdomen- normal bowel sounds, nondistended, soft, nontender Extremities- no pretibial edema, no calf tenderness Neuro- alert, oriented x 3; no gross focal neurologic deficits Skin- warm & dry Results & Data Results & Data ([facility]) Vital Signs (Past 12 Hours) Vital Signs Temp Pulse Pulse Resp BP Pulse Ox Pulse Ox 05/28/21 07:46 36.8 C 84 16 120/80 94 05/28/21 07:40 74 05/28/21 07:00 92 05/28/21 03:23 36.9 C 88 16 120/79 93 all noted and reviewed including below
--- NOTE | 2021-05-28 12:35 | Discharge Summary ---
Date of Service May 28, 2021 Admission HPI Per Admitting Provider New MR account inadvertently created at the ER by error. Patient has an old account, MR number [id number]. Accounts to be merged in a.m. History obtained from patient and records. Medical history significant for on pulmonary embolism on Coumadin, chronic anemia (baseline hemoglobin of 9), mood disorder, prediabetes, past tobacco abuse. Last confinement May 05-2020 for hypoxemic respiratory failure secondary to extensive pulmonary embolism with pulmonary infarcts. CAT scan also showed right upper lobe internal cavitation as well as left lung base consolidation representing developing infarct and infectious/inflammatory pneumonitis. Blood cultures and TB QuantiFERON gold test were negative. Patient completed Ceftriaxone and Azithromycin course. Follow-up CAT scan recommended by applied exercise physiologist after 3 months. Lifelong anticoagulation recommended. Patient discharged on Eliquis but later transitioned to Coumadin at correctional facility. Last night, patient noted recurrence of pleuritic left mid back/flank pain reminiscent of pain from admission 3 weeks ago. No fever, no chills, no cough, no recent trauma history. Patient brought to the ER for further evaluation. 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 Admission Exam (Per Admitting) Constitutional GENERAL: Slightly uncomfortable, obese, no respiratory distress SKIN: Pallor, warm HEENT: Pale palpebral conjunctivae, no ptosis, dry buccal mucosa NECK : Supple, short neck, no tenderness CHEST : Decreased breath sounds, minimal tenderness left chest wall HEART : RRR, no obvious murmurs ABDOMEN: Some distention, nontender EXTREMITIES : No LE swelling/tenderness, no other conspicuous deformities noted NEUROLOGIC : Coherent, no facial asymmetry, no other gross focality Discharge Data Consultations 05/24/21 22:13 ED Decision to Admit Stat 05/25/21 01:30 Consult Pulmonology Routine Procedures Performed CT angio chest PE protocol CLINICAL HISTORY: left sided pain, SOB, hx of PE COMPARISON STUDY: Previous CTA chest from 05/05/2021 CT DOSE: 1742.21 mGy.cm TECHNIQUE: CT Angio of the chest was performed.followed by image post processing with coronal, and sagittal MIP reformats. Contrast Volume: Optiray 320, 120 ml FINDINGS: Vasculature: Compared to previous examination, there has been partial resolution of bilateral pulmonary emboli with residual emboli seen particularly in the right lower lobe pulmonary arteries. Residual emboli are also seen involving left upper lobe pulmonary artery branches. No new pulmonary emboli identified. Airway: The airway is clear. No endobronchial lesion is identified. Lungs and pleural: Compared to the previous examination, there has been interval decrease in size of previously identified wedge-shaped focus of subpleural consolidation in the right upper lobe characteristic of decreased size of lung infarct. However, there has been interval development of a moderately large left pleural effusion with compressive atelectasis/collapse involving the left lower lobe. There is abnormal low at attenuation changes within the collapsed lung and the presence of a lung infarct and necrosis/infarct cannot be excluded. The remainder of the lungs are clear. No other sites of alveolar opacity are seen. There is no right pleural effusion. The previously identified 7 mm nodular density within the right upper lobe with cavitation has resolved and was most likely infectious in etiology. No new nodular densities are identified. Mediastinum: There is no evidence for pathologic adenopathy. The heart size is within normal limits. There is no evidence for right heart strain. The thoracic aorta is within normal limits. There is no evidence for pericardial effusion. Upper abdomen:The adrenal glands are normal bilaterally. Osseous structures: There is no acute osseous pathology. Impression: 1. Compared to previous examination, there has been partial resolution of previously identified bilateral pulmonary emboli. Residual emboli are seen particularly involving the right lower lobe. No new emboli are identified. 2. Interval development of moderately large left pleural effusion with atelectasis/collapse involving the left lower lobe. There is additional low attenuation changes within the collapsed lung and the presence of lung infarct and necrosis cannot be excluded. 3. Interval decrease in size of right upper lobe lung infarct. 4. Resolution of small cavitating pulmonary nodule. ACT 112: Negative or not required by law. CT abd pelvis wo con CLINICAL HISTORY: L flank pain TECHNIQUE: Helical axial images of the abdomen and pelvis were obtained. Automated dose lowering techniques and/or adjustment according to patient size were utilized for this exam. This exam was performed without intravenous contrast. COMPARISON: Comparison is made to CT abdomen and pelvis 05/05/2021 FINDINGS: Lower chest: There is a left effusion with associated atelectasis and/or consolidation. Liver: Unremarkable. No focal lesions are seen. Gallbladder and biliary tree: No calcified gallstones. Normal caliber wall. No intra- or extrahepatic biliary ductal dilation. Pancreas: Unremarkable, no focal lesions. Spleen: Unremarkable. Adrenals: Unremarkable. Kidneys and ureters: Subcentimeter hypodensities are too small to characterize. No evidence of ureteric obstruction or hydronephrosis. Bladder: Bladder is distended. Reproductive organs: Unremarkable. Bowel: Unremarkable appearance of the bowel. The appendix is normal. Lymph nodes Retroperitoneal: Bonnie hepatis nodes noted measuring 12 mm. Mesenteric: Subcentimeter lymph nodes are noted. Pelvic: Unremarkable. Peritoneum: Normal Vessels: Unremarkable. Abdominal wall: Unremarkable. Bones: Unremarkable. IMPRESSION: Moderate left pleural effusion with underlying atelectasis and likely consolidation. No acute abnormality in the abdomen. ACT 112: Negative or not required by law. Electronically signed by: Melecio Dudley M.D. 05/25/2021 9:12 AM XR chest 1V portable CLINICAL HISTORY: S/P Thoracentesis TECHNIQUE: Single frontal radiograph of the chest was obtained. Comparison: Comparison is made to chest one view 05/10/2021 FINDINGS: No lines and tubes are seen. The cardiomediastinal silhouette is normal. Bibasilar atelectasis is noted. Interval improvement in left lung base densities, likely status post thoracentesis. IMPRESSION: 1. Bibasilar atelectasis without evidence of acute abnormality. 2. Interval improvement in left effusion without evidence of pneumothorax status post thoracentesis. ACT 112: Negative or not required by law. Electronically signed by: Melecio Dudley M.D. 05/27/2021 1:52 PM CLINICAL HISTORY: S/P Thoracentesis TECHNIQUE: Single frontal radiograph of the chest was obtained. Comparison: Comparison is made to chest one view 05/10/2021 FINDINGS: No lines and tubes are seen. The cardiomediastinal silhouette is normal. Bibasilar atelectasis is noted. Interval improvement in left lung base densities, likely status post thoracentesis. IMPRESSION: 1. Bibasilar atelectasis without evidence of acute abnormality. 2. Interval improvement in left effusion without evidence of pneumothorax status post thoracentesis. ACT 112: Negative or not required by law. Electronically signed by: Melecio Dudley M.D. 05/27/2021 1:52 PM Hospital Course (1) Upper back pain on left side: (2) Pleural effusion: 35-year-old male with a history of recently diagnosed acute pulmonary embolism, on Coumadin, etc. Presented with left-sided back pain. (1) Pleural effusion secondary to Pulmonary Embolism Plan: Pleuritic chest pain from left pleural effusion hx pneumonia status post treatment --Pulmonary service consulted -- coumadin reversed with Vitamin K IV 2 mg placed on heparin drip due to very recent acute PE Status post thoracentesis, drainage of 1000 mL of bloody pleural fluid Suspect likely secondary to PE Follow-up final results of pleural fluid studies, pathology -- clinically improve after thoracentesis INR 1.1 on discharge day 05/28/21 resume coumadin with lovenox bridge 120mg SC BID check INR daily -- continue Incentive Spirometry -- ff up with [facility] Physician Recently diagnosed pulmonary embolism on Coumadin --Management of anticoagulation as noted above Elevated BP -- likely from pain, stress -- improved -- monitor Prediabetes, hemoglobin A1c of 5.7 from last month -- outpatient ff up Mood disorder, at baseline Chronic anemia, hemoglobin improved from baseline Past tobacco abuse Disposition return to correctional facility
[2021-05-28] MEDS ORDERED: WARFARIN SOD 5 MG TAB PO SCH (16:00)
== END 2021-05-28 17:37 | DRG 176 ==
LOC: ED 17:58 → 2W 17:58 → SUATTDRO 23:15 → MERGE 23:15 → 2W 05-25 00:55

== ENCOUNTER 2025-05-30 16:20 | Inpatient (IN) ==
--- NOTE | 2025-05-30 16:48 | Emergency Department Note ---
History of Present Illness General Chief complaint: Rib Injury/Pain Stated complaint: PAIN UNDER RT RIB AND SHOULDERBLADE, SOB, DIZZY Time Seen by Provider: 05/30/25 16:35 History of Present Illness Maximum Pain Intensity: 8 This a 39-year-old male presenting to the emergency department for evaluation of right sided pain. The patient has a history of PE and is on warfarin. Patient is currently incarcerated at [facility]. He states that his pain is radiating from his right upper quadrant into his right shoulder and causing him to be short of breath. Patient symptoms have been ongoing for the last 14 hours. No difficulty eating or drinking. He is nauseated without vomiting. Discomfort is rated an 8/10. Home Medications Medication Instructions Recorded Confirmed Type amoxicillin 875 mg-potassium 1 tab PO BID 05/30/25 05/30/25 History clavulanate 125 mg tablet azithromycin 250 mg tablet 250 mg PO DAILY 05/30/25 05/30/25 History hydrochlorothiazide 12.5 mg capsule 12.5 mg PO DAILY 05/30/25 05/30/25 History hydroxyzine pamoate 50 mg capsule 100 mg PO HS 05/30/25 05/30/25 History lamotrigine 100 mg tablet 200 mg PO HS 05/30/25 05/30/25 History (Lamictal) metoprolol tartrate 25 mg tablet 25 mg PO BID 05/30/25 05/30/25 History olanzapine 20 mg tablet 20 mg PO HS 05/30/25 05/30/25 History rosuvastatin 40 mg tablet 40 mg PO HS 05/30/25 05/30/25 History venlafaxine 150 mg 300 mg PO HS 05/30/25 05/30/25 History capsule,extended release 24 hr (Effexor XR) warfarin 5 mg tablet 5 mg PO HS 05/30/25 05/30/25 History Allergies Allergy/AdvReac Type Severity Reaction Status Date / Time No Known Allergies Allergy Verified 05/30/25 17:08 Past Med/Surg History Problem List (Updated 05/30/25 @ 21:55 by Kalia Eaton PA-C) RUQ pain (Acute) Cholelithiases (Acute) Acute left flank pain (Acute) Upper back pain on left side (Acute) Pleurisy (Acute) Pleural effusion Prediabetes Multiple pulmonary nodules Abnormal CT scan of lung Pulmonary embolism Acute left-sided back pain (Acute) Painful respiration (Acute) Obesity (BMI 35.0-39.9 without comorbidity) Medical History Bipolar I disorder Creatinine elevation Acute respiratory failure with hypoxia Pulmonary embolism Surgical History No pertinent past surgical history Social History Smoking Status: Never smoker Second Hand Exposure: No; Do You Dip or Chew Tobacco: No; Hx Alcohol Use: No Hx Substance Use: No Preferred Language: [place] Front End [employer]ician Required: No Beliefs That Will Affect Care: None Current Living Situation: Other Current Living Situation Comment: [facility] Feels Safe at Home: Yes Assistive Devices: None and Oxygen - Continuous Review of Systems A total of 10 systems reviewed and were otherwise negative Physical Exam Vital Signs Vital Signs - 24 hr 05/30/25 16:31 05/30/25 18:21 05/30/25 20:00 Temperature 36.6 C Temperature Source Skin Pulse Rate 71 Pulse Rate [Right Finger] 73 75 Respiratory Rate 16 20 18 Respiratory Effort / Characteristics Non-Labored Spontaneous Respiratory Depth Normal Normal Respiratory Pattern Regular Regular Blood Pressure 209/114 H Blood Pressure [Right Arm] 194/125 H 206/125 H Blood Pressure Mean 145 Blood Pressure Mean [Right Arm] 148 152 Pulse Oximetry 95 95 96 Oxygen Delivery Method Room Air Room Air Sepsis Recent Fever Within 48 Hours No Sepsis New/Unexplained Change in Mental Status N/A Sepsis Action Taken by Nursing No Action Required 05/30/25 20:19 Temperature Temperature Source Pulse Rate Pulse Rate [Right Finger] 76 Respiratory Rate 22 Respiratory Effort / Characteristics Non-Labored Spontaneous Respiratory Depth Normal Respiratory Pattern Regular Blood Pressure Blood Pressure [Right Arm] 188/140 H Blood Pressure Mean Blood Pressure Mean [Right Arm] 156 Pulse Oximetry 94 Oxygen Delivery Method Room Air Sepsis Recent Fever Within 48 Hours Sepsis New/Unexplained Change in Mental Status Sepsis Action Taken by Nursing VITALS: Vitals are noted on the nurse's note and reviewed by myself. Vital signs stable. GENERAL: Well-developed, well-nourished, white male, who is moderately uncomfortable on arrival. 2 corrections officers are at bedside. Patient is partially restrained by handcuffs. HEAD: Normocephalic atraumatic. EARS: External ear normal. External auditory canals clear, tympanic membranes pearly lowry without erythema or effusion bilaterally. EYES: Pupils equal round and reactive to light and accommodation. Conjunctivae without injection, sclerae without icterus. Extraocular movements intact. NOSE: Patent, turbinates without inflammation or discharge. MOUTH: Mucous membranes moist. Pharynx without erythema, blood, or exudate. Uvula midline. Airway patent. NECK: Supple without nuchal rigidity. No lymphadenopathy. No thyromegaly. Cervical spine is nontender. HEART: Regular rate and rhythm without murmurs gallops or rubs. LUNGS: Clear to auscultation bilaterally without wheezes, rales or rhonchi. No retractions or accessory muscle use. ABDOMEN: Positive normal bowel sounds x 4. Soft, nontender, without masses or organomegaly. No guarding or rebound tenderness. Course Administered Medications Morphine Sulfate (Morphine Sulfate 4 Mg/Ml 1 Ml Carp\Vial) 4 mg IV Q30M PRN PRN Reason: Pain Stop: 06/13/25 16:38 Last Admin: 05/30/25 20:18 Dose: 4 mg Documented By: Admin: 05/30/25 18:38 Dose: 4 mg Documented By: Admin: 05/30/25 17:40 Dose: 4 mg Documented By: Admin: 05/30/25 16:54 Dose: 4 mg Documented By: Discontinued Medications Sodium Chloride (Nss) 1,000 mls @ 999 mls/hr IV .Q1H1M ONE Stop: 05/30/25 17:39 Last Infusion: 05/30/25 18:38 Dose: Infused Documented By: Admin: 05/30/25 16:53 Dose: 999 mls/hr Documented By: Ioversol (Optiray 320 125ml) 119 ml IV ONCE ONE Stop: 05/30/25 17:33 Last Admin: 05/30/25 17:32 Dose: 119 ml Documented By: LUCIE Ondansetron HCl (Ondansetron Inj 2 Mg/Ml 2 Ml Vial) 4 mg IV NOW STA Stop: 05/30/25 16:40 Last Admin: 05/30/25 16:53 Dose: 4 mg Documented By: Medical Decision Making Differential Diagnosis Differential diagnosis: Etiologies such as biliary colic, cholecystitis, hepatitis, pancreatitis, cardiac disease, pancreatitis, gastritis, peptic ulcer disease, appendicitis, cystitis, diverticulitis, mesenteric ischemia, inflammatory bowel disease, ileus, bowel obstruction, testicular/adnexal torsion, aortic pathology, shingles, as well as others were considered Laboratory Data 05/30/25 16:46 05/30/25 16:46 Lab Results 05/30/25 Range/Units 16:46 WBC 9.59 (4.8-10.8) K/ul RBC 5.36 (4.70-6.10) M/uL Hgb 15.1 (14.0-18.0) g/dL Hct 44.4 (42.0-52.0) % MCV 82.8 (80.0-100.0) fL MCH 28.2 (25.0-34.0) pg MCHC 34.0 (32.0-36.0) g/dL RDW Std Deviation 40.5 (36.4-46.3) fL RDW Coeff of Aleksandr 13.6 (11.5-14.5) % Plt Count 320 (130-400) K/uL MPV 8.3 L (9.4-12.4) fL Immature Gran % (Auto) 1.1 % Neut % (Auto) 71.7 % Lymph % (Auto) 16.3 % Faulk % (Auto) 8.0 % Eos % (Auto) 1.9 % Baso % (Auto) 1.0 % Neut # (Auto) 6.87 H (1.40-6.50) K/uL Lymph # (Auto) 1.56 (1.20-3.40) K/uL Faulk # (Auto) 0.77 H (0.11-0.59) K/uL Eos # (Auto) 0.18 (0.00-0.50) K/uL Baso # (Auto) 0.10 (0.00-0.20) K/uL Immature Gran # (Auto) 0.11 (0.01-0.20) K/uL PT 28.5 H (9.0-12.0) Seconds INR 2.9 H (0.9-1.1) APTT 44 H (21-31) Seconds PTT Ratio 1.6 Sodium 140 (136-145) mmol/L Potassium 4.1 (3.5-5.1) mmol/L Chloride 105 (98-107) mmol/L Carbon Dioxide 26 (21-32) mmol/L Anion Gap 9 (3-11) BUN 17 (6-23) mg/dl Creatinine 1.01 (0.6-1.4) mg/dl Est Cr Clr Drug Dosing 128.8 ml/min eGFR 95.82 BUN/Creatinine Ratio 16.8 (10-20) Glucose 141 H (70-99(Fasting)) mg/dl Calcium 9.2 (8.6-10.3) mg/dl Total Bilirubin 0.3 (0.2-1.0) mg/dl AST 18 (13-39) U/L ALT 27 (7-52) U/L Alkaline Phosphatase 116 H (34-104) U/L Troponin I High Sens 2.7 (0-20) pg/ml Total Protein 7.9 (6.0-8.3) gm/dl Albumin 4.6 (3.4-5.0) gm/dl Globulin 3.3 (2.5-4.0) gm/dl Albumin/Globulin Ratio 1.4 (0.9-2) Lipase 15 (11-82) U/L Imaging Data Radiologist's Impression: Abdomen/Pelvis CT 05/30/25 16:39 Exam: CT abdomen/pelvis with IV contrast. Reason for exam: Upper right abdominal pain. Previous studies: CT abdomen/pelvis 05/25/2021 FINDINGS: The lower lung zone show minimal linear atelectasis. Previous left pleural effusion has resolved. Liver shows mild diffuse fatty infiltrate. Gallbladder is mildly distended but no wall thickening or radiopaque calculi noted. Pancreas and spleen are unremarkable. Abdomen and glands are unremarkable. Kidneys small cortical cyst but otherwise unremarkable. Appendix normal in appearance. Urinary bladder mildly distended. No pelvic mass, adenopathy seen. Small right inguinal hernia containing fat only is noted. No evidence of bowel obstruction or free. IMPRESSION: 1. Mild hepatic steatosis. 2. Mildly distended gallbladder without other gallbladder abnormality. Since this is the region of clinical pain however, this could be further evaluated with ultrasound study. 3. Mildly distended urinary bladder. 4. Small right inguinal hernia containing fat only. Electronically signed by Cornel Pandey 05-30-2025 6:41 PM Chest CTA 05/30/25 16:39 Exam: CT angiogram chest with pulmonary embolus protocol. Perfusion for exam: Pain under right ribs. Previous studies: 05/06/2023. FINDINGS: There is good opacification of the pulmonary arteries. At this time no persistent filling defect to indicate pulmonary embolus is seen on either side. Pulmonary artery normal in size without evidence of right ventricular strain. Exam shows some mild areas of chronic fibrotic thickening unchanged since a previous study of 05/06/2023, but no acute appearing infiltrate, collapse or edema is seen at this time. No active pleural effusion or pneumothorax is noted. Aorta is not well opacified. No significant coronary calcifications noted. No suspicious abnormal hilar or mediastinal mass or adenopathy is seen. IMPRESSION: 1. Negative for pulmonary embolus. 2. Mild scattered areas of chronic linear pulmonary fibrosis. Otherwise negative for active cardiopulmonary disease at this time. Electronically signed by Cornel Pandey 05-30-2025 6:48 PM Gallbladder Ultrasound 05/30/25 18:42 Exam: Gallbladder ultrasound. History: Right upper quadrant pain. Comparison:None. Findings: Liver demonstrates absence of normal periportal fatty echoes. No appreciated mass or ductal dilatation. Main portal vein is patent. Gallbladder is at least moderately distended. Small hyperechoic foci along the gallbladder neck noted. There appears to be mild acoustic impedance. Gallbladder wall is thickened at 5 mm. No pericholecystic fluid. Patient does demonstrate tenderness upon transducer placement over the gallbladder. Common duct measures 5 mm diameter. Right kidney measures 11.7 cm in length. Small hyperechoic focus along the mid kidney at the level of the calyx is noted. No acoustic impedance. No discrete corresponding abnormality on same-day CT. No hydronephrosis. Pancreas is nondiagnostic secondary to overlying bowel gas. Impression: 1. Very small gallstones at the level of the gallbladder neck with gallbladder wall thickening and tenderness upon transducer placement over the gallbladder. Acute cholecystitis not entirely excluded. No discrete pericholecystic fluid. 2. Likely diffuse liver steatosis. 3. Nondiagnostic pancreas. 4. Nonspecific small hyperechoic focus right mid renal pole. No corresponding abnormality on CT. This may represent focal sinus fat. Electronically signed by Rigoberto Dobson 05-30-2025 7:54 PM MDM Narrative Physical exam and history were performed. Nursing notes, EMR, and Medication List were personally reviewed. No social concerns were identified as barriers to patients care. History was provided by the Patient and corrections officers at bedside. Patient appears to have pain along his right upper abdomen. This seems to be going into his shoulder and causing him shortness of breath. IV access was established and labs were obtained. He was hydrated normal saline and given IV morphine and IV Zofran. Patient was sent to CT scan for imaging. Patient's blood work is as above and was reviewed. He does not have a significantly elevated white blood cell count, gross anemia, bandemia, or significant electrolyte imbalance. Transaminases not diagnostic. INR 2.9. Troponin is negative. CT scan of the chest and belly were independently reviewed by myself and radiology. He does have a large gallbladder on CT, and ultrasound was recommended. This was performed and also reviewed. Ultrasound shows several small gallstones in the gallbladder neck with some gallbladder wall thickening. There is no distinct pericholecystic fluid, and acute cholecystitis cannot be completely ruled out at this time. Escalation of care was considered, and felt to be necessary. Patient has required several doses of pain medication to remain comfortable. Case was initially discussed with the on-call surgical team, who did evaluate the patient here in the ER. Patient was then discussed with the on-call hospitalist team. Please see the specialist dictations for further patient course, plan, disposition. The chart was completed utilizing [employer] Speech Voice Recognition Software. Grammatical errors, random word insertions, pronoun errors, and incomplete sentences are an occasional consequence of this system due to software limitations, ambient noise, and hardware issues. Any formal questions or concerns about the content, text, or information contained within the body of this dictation should be directly addressed to the provider for clarification. Impression & Plan Cholelithiases, RUQ pain Discharge Plan Visit Data Chief Complaint: Rib Injury/Pain Stated Complaint: PAIN UNDER RT RIB AND SHOULDERBLADE, SOB, DIZZY ED Provider: Epifanio Williamson ED Midlevel Provider: Kalia Eaton Discharge Problem: Cholelithiases, RUQ pain Patient Disposition: Being Evaluated by Hospitalist Condition: Fair Forms Stand Alone Forms: My [facility] trinket Prescriptions Prescriptions: No Action azithromycin 250 mg Tablet 250 mg PO DAILY Rx Instructions: STARTED 05/30/25 FOR 5 DAYS. For 250 mg dose pack: take 500 mg today (day 1), then 250 mg for 4 days (days 2-5) venlafaxine [Effexor XR] 150 mg Capsule,Extended Release 24hr 300 mg PO HS hydroxyzine pamoate 50 mg Capsule 100 mg PO HS warfarin 5 mg Tablet 5 mg PO HS hydrochlorothiazide 12.5 mg Capsule 12.5 mg PO DAILY olanzapine 20 mg Tablet 20 mg PO HS lamotrigine [Lamictal] 100 mg Tablet 200 mg PO HS amoxicillin-pot clavulanate [Augmentin] 875-125 mg Tablet 1 tab PO BID Rx Instructions: STARTED 05/30/25 FOR 5 DAYS rosuvastatin 40 mg Tablet 40 mg PO HS metoprolol tartrate 25 mg Tablet 25 mg PO BID Referrals Referrals: [facility] [Non-Staff] -
[2025-05-30] MEDS: ONDANSETRON INJ 2 MG/ML 2 ML VIAL IV STA (16:53)
[2025-05-30] MEDS: SODIUM CHLORIDE 0.9% 1,000 ML IV ONE (16:53)
[2025-05-30] MEDS: MoRPHine SULFATE 4 MG/ML 1 ML CARP\\VIAL IV PRN (16:54)
[2025-05-30 17:00] LABS: Hematocrit (blood only) 44.4 % (42.0-52.0); Hemoglobin 15.1 g/dL (14.0-18.0); Immature Granulocytes # (auto) 0.11 K/uL (0.01-0.20); Immature Granulocytes % (auto) 1.1 %; Mean Corpuscular Hemoglobin 28.2 pg (25.0-34.0); Mean Corpuscular Volume 82.8 fL (80.0-100.0); Platelet Count 320 K/uL (130-400); RDW Standard Deviation 40.5 fL (36.4-46.3); Red Blood Count 5.36 M/uL (4.70-6.10); White Blood Count 9.59 K/ul (4.8-10.8)
[2025-05-30 17:18] LABS: Alanine Aminotransferase 27.0 U/L (7-52); Albumin Globulin Ratio 1.4 (0.9-2); Albumin Level 4.6 gm/dl (3.4-5.0); Alkaline Phosphatase 116.0 U/L (34-104); Anion Gap 9.0 (3-11); Bilirubin,Total 0.3 mg/dl (0.2-1.0); Blood Urea Nitrogen 17.0 mg/dl (6-23); Calcium 9.2 mg/dl (8.6-10.3); Carbon Dioxide 26.0 mmol/L (21-32); Chloride 105.0 mmol/L (98-107); Creatinine Clr Calc Pharmacy 128.8 ml/min; Globulin 3.3 gm/dl (2.5-4.0); Glucose 141.0 mg/dl (70-99(Fasting)); Lipase 15.0 U/L (11-82); Potassium 4.1 mmol/L (3.5-5.1); Sodium 140.0 mmol/L (136-145); Total Protein 7.9 gm/dl (6.0-8.3)
[2025-05-30 17:26] LABS: INR 2.9 (0.9-1.1); Partial Thromboplastin Time 44 Seconds (21-31); Prothrombin Time 28.5 Seconds (9.0-12.0)
[2025-05-30] MEDS: OPTIRAY 320 125ml IV ONE (17:32)
--- NOTE | 2025-05-30 18:41 | CT Scan Report ---
Exam: CT abdomen/pelvis with IV contrast. Reason for exam: Upper right abdominal pain. Previous studies: CT abdomen/pelvis 05/25/2021 FINDINGS: The lower lung zone show minimal linear atelectasis. Previous left pleural effusion has resolved. Liver shows mild diffuse fatty infiltrate. Gallbladder is mildly distended but no wall thickening or radiopaque calculi noted. Pancreas and spleen are unremarkable. Abdomen and glands are unremarkable. Kidneys small cortical cyst but otherwise unremarkable. Appendix normal in appearance. Urinary bladder mildly distended. No pelvic mass, adenopathy seen. Small right inguinal hernia containing fat only is noted. No evidence of bowel obstruction or free. IMPRESSION: 1. Mild hepatic steatosis. 2. Mildly distended gallbladder without other gallbladder abnormality. Since this is the region of clinical pain however, this could be further evaluated with ultrasound study. 3. Mildly distended urinary bladder. 4. Small right inguinal hernia containing fat only. Electronically signed by Cornel Pandey 05-30-2025 6:41 PM
--- NOTE | 2025-05-30 18:49 | CT Scan Report ---
Exam: CT angiogram chest with pulmonary embolus protocol. Perfusion for exam: Pain under right ribs. Previous studies: 05/06/2023. FINDINGS: There is good opacification of the pulmonary arteries. At this time no persistent filling defect to indicate pulmonary embolus is seen on either side. Pulmonary artery normal in size without evidence of right ventricular strain. Exam shows some mild areas of chronic fibrotic thickening unchanged since a previous study of 05/06/2023, but no acute appearing infiltrate, collapse or edema is seen at this time. No active pleural effusion or pneumothorax is noted. Aorta is not well opacified. No significant coronary calcifications noted. No suspicious abnormal hilar or mediastinal mass or adenopathy is seen. IMPRESSION: 1. Negative for pulmonary embolus. 2. Mild scattered areas of chronic linear pulmonary fibrosis. Otherwise negative for active cardiopulmonary disease at this time. Electronically signed by Cornel Pandey 05-30-2025 6:48 PM
--- NOTE | 2025-05-30 19:54 | Ultrasound Report ---
Exam: Gallbladder ultrasound. History: Right upper quadrant pain. Comparison:None. Findings: Liver demonstrates absence of normal periportal fatty echoes. No appreciated mass or ductal dilatation. Main portal vein is patent. Gallbladder is at least moderately distended. Small hyperechoic foci along the gallbladder neck noted. There appears to be mild acoustic impedance. Gallbladder wall is thickened at 5 mm. No pericholecystic fluid. Patient does demonstrate tenderness upon transducer placement over the gallbladder. Common duct measures 5 mm diameter. Right kidney measures 11.7 cm in length. Small hyperechoic focus along the mid kidney at the level of the calyx is noted. No acoustic impedance. No discrete corresponding abnormality on same-day CT. No hydronephrosis. Pancreas is nondiagnostic secondary to overlying bowel gas. Impression: 1. Very small gallstones at the level of the gallbladder neck with gallbladder wall thickening and tenderness upon transducer placement over the gallbladder. Acute cholecystitis not entirely excluded. No discrete pericholecystic fluid. 2. Likely diffuse liver steatosis. 3. Nondiagnostic pancreas. 4. Nonspecific small hyperechoic focus right mid renal pole. No corresponding abnormality on CT. This may represent focal sinus fat. Electronically signed by Rigoberto Dobson 05-30-2025 7:54 PM
--- NOTE | 2025-05-30 21:26 | History & Physical Report ---
Date of Service May 30, 2025 Assessment & Plan (1) RUQ pain: Plan: Assessment and plan below following discussion of case with ED provider and reviewing patient history/pertinent normal/abnormal diagnostic test results. Biliary colic Possible cholecystitis No sepsis for now Hypertensive urgency secondary to discomfort PE on Coumadin, INR therapeutic hyperlipidemia on statin Rx Prediabetes, hemoglobin A1c of 5.7 from 2020 Antisocial personality disorder/mood disorder, at baseline Past tobacco/alcohol abuse Admit to [facility] General Surgery consult re: biliary colic/possible cholecystitis (Patient already seen at the ER by PEREZ who recommends Zosyn for antibiotic coverage. Earliest surgery 06/01.) Hold Coumadin for now, Vitamin K to reverse Coumadin coagulopathy in anticipation of procedure. DVT prophylaxis. IV heparin for thromboembolic prophylaxis if INR less than 2 while Coumadin on hold given history PE Full code Text document was generated using [employer] voice recognition software. It may contain grammatical or spelling errors. Kindly contact undersigned for clarification of any documentation item in question. History of Present Illness Chief Complaint: Right sided chest pain/abdominal pain Primary Care Provider: ANURAG Hwang History obtained from patient and records. Medical history significant for on hypertension, hyperlipidemia, pulmonary embolism on Coumadin, prediabetes, antisocial personality disorder, mood disorder, substance abuse disorder as per records, past tobacco/alcohol abuse. Last confinement 2020 for acute pulmonary embolism associated with pleural effusion. Patient discharged on Lovenox/Coumadin bridge therapy. Patient not feeling well since last night. Dizziness symptoms without headache. 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 Some nausea symptoms. Patient prescribed Augmentin at the [facility] for possible pneumonia. Chest x-ray to be done on Sunday as per patient. Patient brought to ER for evaluation for worsening symptoms despite intake of 1 antibiotic pill. Initial SBP 190s upon arrival at the ER. SBP currently 150s. 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 Allergies Allergy/AdvReac Type Severity Reaction Status Date / Time No Known Allergies Allergy Verified 05/30/25 17:08 Home Medications Medication Instructions Recorded Confirmed Type amoxicillin 875 mg-potassium 1 tab PO BID 05/30/25 05/30/25 History clavulanate 125 mg tablet azithromycin 250 mg tablet 250 mg PO DAILY 05/30/25 05/30/25 History hydrochlorothiazide 12.5 mg capsule 12.5 mg PO DAILY 05/30/25 05/30/25 History hydroxyzine pamoate 50 mg capsule 100 mg PO HS 05/30/25 05/30/25 History lamotrigine 100 mg tablet 200 mg PO HS 05/30/25 05/30/25 History (Lamictal) metoprolol tartrate 25 mg tablet 25 mg PO BID 05/30/25 05/30/25 History olanzapine 20 mg tablet 20 mg PO HS 05/30/25 05/30/25 History rosuvastatin 40 mg tablet 40 mg PO HS 05/30/25 05/30/25 History venlafaxine 150 mg 300 mg PO HS 05/30/25 05/30/25 History capsule,extended release 24 hr (Effexor XR) warfarin 5 mg tablet 5 mg PO HS 05/30/25 05/30/25 History Past Med/Surg History Problem List (Updated 05/30/25 @ 21:55 by Kalia Eaton PA-C) RUQ pain (Acute) Cholelithiases (Acute) Acute left flank pain (Acute) Upper back pain on left side (Acute) Pleurisy (Acute) Pleural effusion Prediabetes Multiple pulmonary nodules Abnormal CT scan of lung Pulmonary embolism Acute left-sided back pain (Acute) Painful respiration (Acute) Obesity (BMI 35.0-39.9 without comorbidity) Medical History Bipolar I disorder Creatinine elevation Acute respiratory failure with hypoxia Pulmonary embolism Surgical History No pertinent past surgical history Social History Smoking Status: Former smoker Second Hand Exposure: No; Do You Dip or Chew Tobacco: No; Hx Alcohol Use: No Hx Substance Use: No Preferred Language: Latvian 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: No Beliefs That Will Affect Care: None Current Living Situation: Other Current Living Situation Comment: [facility] facility Other Information That Helps Us Care for You: No Feels Safe at Home: Yes Safety Concerns: Feels Safe At This Time Assistive Devices: None Review of Systems Review of Systems: As per HPI, all other systems reviewed and negative Physical Exam Physical Exam: GENERAL: Slightly uncomfortable, obese, pleasant, no respiratory distress SKIN: Normal color, warm HEENT: [place] palpebral conjunctivae, no ptosis, dry buccal mucosa NECK : Supple, short neck, no tenderness CHEST : Decreased breath sounds, no tenderness HEART : RRR, no obvious murmurs ABDOMEN: Some distention, RUQ tenderness EXTREMITIES : No LE swelling/tenderness, no other conspicuous deformities noted NEUROLOGIC : Coherent, no facial asymmetry, no other gross focality Results & Data Results & Data Vital Signs (Past 12 Hours) Vital Signs Temp Pulse Pulse Resp BP BP Pulse Ox 05/30/25 20:19 76 22 188/140 H 94 05/30/25 20:00 75 18 206/125 H 96 05/30/25 18:21 73 20 194/125 H 95 05/30/25 16:31 36.6 C 71 16 209/114 H 95 O2 Del Method 05/30/25 20:19 Room Air 05/30/25 20:00 Room Air 05/30/25 18:21 Room Air 05/30/25 16:31 Laboratory Results Laboratory Results WBC 9.59 K/ul (4.8-10.8) 05/30/25 16:46 RBC 5.36 M/uL (4.70-6.10) 05/30/25 16:46 Hgb 15.1 g/dL (14.0-18.0) 05/30/25 16:46 Hct 44.4 % (42.0-52.0) 05/30/25 16:46 MCV 82.8 fL (80.0-100.0) 05/30/25 16:46 MCH 28.2 pg (25.0-34.0) 05/30/25 16:46 MCHC 34.0 g/dL (32.0-36.0) 05/30/25 16:46 RDW Std Deviation 40.5 fL (36.4-46.3) 05/30/25 16:46 RDW Coeff of Aleksandr 13.6 % (11.5-14.5) 05/30/25 16:46 Plt Count 320 K/uL (130-400) 05/30/25 16:46 MPV 8.3 fL (9.4-12.4) L 05/30/25 16:46 Immature Gran % (Auto) 1.1 % 05/30/25 16:46 Neut % (Auto) 71.7 % 05/30/25 16:46 Lymph % (Auto) 16.3 % 05/30/25 16:46 Bee % (Auto) 8.0 % 05/30/25 16:46 Eos % (Auto) 1.9 % 05/30/25 16:46 Baso % (Auto) 1.0 % 05/30/25 16:46 Neut # (Auto) 6.87 K/uL (1.40-6.50) H 05/30/25 16:46 Lymph # (Auto) 1.56 K/uL (1.20-3.40) 05/30/25 16:46 Bee # (Auto) 0.77 K/uL (0.11-0.59) H 05/30/25 16:46 Eos # (Auto) 0.18 K/uL (0.00-0.50) 05/30/25 16:46 Baso # (Auto) 0.10 K/uL (0.00-0.20) 05/30/25 16:46 Immature Gran # (Auto) 0.11 K/uL (0.01-0.20) 05/30/25 16:46 PT 28.5 Seconds (9.0-12.0) H 05/30/25 16:46 INR 2.9 (0.9-1.1) H 05/30/25 16:46 APTT 44 Seconds (21-31) H 05/30/25 16:46 PTT Ratio 1.6 05/30/25 16:46 Sodium 140 mmol/L (136-145) 05/30/25 16:46 Potassium 4.1 mmol/L (3.5-5.1) 05/30/25 16:46 Chloride 105 mmol/L (98-107) 05/30/25 16:46 Carbon Dioxide 26 mmol/L (21-32) 05/30/25 16:46 Anion Gap 9 (3-11) 05/30/25 16:46 BUN 17 mg/dl (6-23) 05/30/25 16:46 Creatinine 1.01 mg/dl (0.6-1.4) 05/30/25 16:46 Est Cr Clr Drug Dosing 128.8 ml/min 05/30/25 16:46 eGFR 95.82 05/30/25 16:46 BUN/Creatinine Ratio 16.8 (10-20) 05/30/25 16:46 Glucose 141 mg/dl (70-99(Fasting)) H 05/30/25 16:46 Calcium 9.2 mg/dl (8.6-10.3) 05/30/25 16:46 Total Bilirubin 0.3 mg/dl (0.2-1.0) 05/30/25 16:46 AST 18 U/L (13-39) 05/30/25 16:46 ALT 27 U/L (7-52) 05/30/25 16:46 Alkaline Phosphatase 116 U/L (34-104) H 05/30/25 16:46 Troponin I High Sens 2.7 pg/ml (0-20) 05/30/25 16:46 Total Protein 7.9 gm/dl (6.0-8.3) 05/30/25 16:46 Albumin 4.6 gm/dl (3.4-5.0) 05/30/25 16:46 Globulin 3.3 gm/dl (2.5-4.0) 05/30/25 16:46 Albumin/Globulin Ratio 1.4 (0.9-2) 05/30/25 16:46 Lipase 15 U/L (11-82) 05/30/25 16:46 Impressions Abdomen/Pelvis CT 05/30/25 16:39 Exam: CT abdomen/pelvis with IV contrast. Reason for exam: Upper right abdominal pain. Previous studies: CT abdomen/pelvis 05/25/2021 FINDINGS: The lower lung zone show minimal linear atelectasis. Previous left pleural effusion has resolved. Liver shows mild diffuse fatty infiltrate. Gallbladder is mildly distended but no wall thickening or radiopaque calculi noted. Pancreas and spleen are unremarkable. Abdomen and glands are unremarkable. Kidneys small cortical cyst but otherwise unremarkable. Appendix normal in appearance. Urinary bladder mildly distended. No pelvic mass, adenopathy seen. Small right inguinal hernia containing fat only is noted. No evidence of bowel obstruction or free. IMPRESSION: 1. Mild hepatic steatosis. 2. Mildly distended gallbladder without other gallbladder abnormality. Since this is the region of clinical pain however, this could be further evaluated with ultrasound study. 3. Mildly distended urinary bladder. 4. Small right inguinal hernia containing fat only. Electronically signed by Cornel Pandey 05-30-2025 6:41 PM Chest CTA 05/30/25 16:39 Exam: CT angiogram chest with pulmonary embolus protocol. Perfusion for exam: Pain under right ribs. Previous studies: 05/06/2023. FINDINGS: There is good opacification of the pulmonary arteries. At this time no persistent filling defect to indicate pulmonary embolus is seen on either side. Pulmonary artery normal in size without evidence of right ventricular strain. Exam shows some mild areas of chronic fibrotic thickening unchanged since a previous study of 05/06/2023, but no acute appearing infiltrate, collapse or edema is seen at this time. No active pleural effusion or pneumothorax is noted. Aorta is not well opacified. No significant coronary calcifications noted. No suspicious abnormal hilar or mediastinal mass or adenopathy is seen. IMPRESSION: 1. Negative for pulmonary embolus. 2. Mild scattered areas of chronic linear pulmonary fibrosis. Otherwise negative for active cardiopulmonary disease at this time. Electronically signed by Cornel Pandey 05-30-2025 6:48 PM Gallbladder Ultrasound 05/30/25 18:42 Exam: Gallbladder ultrasound. History: Right upper quadrant pain. Comparison:None. Findings: Liver demonstrates absence of normal periportal fatty echoes. No appreciated mass or ductal dilatation. Main portal vein is patent. Gallbladder is at least moderately distended. Small hyperechoic foci along the gallbladder neck noted. There appears to be mild acoustic impedance. Gallbladder wall is thickened at 5 mm. No pericholecystic fluid. Patient does demonstrate tenderness upon transducer placement over the gallbladder. Common duct measures 5 mm diameter. Right kidney measures 11.7 cm in length. Small hyperechoic focus along the mid kidney at the level of the calyx is noted. No acoustic impedance. No discrete corresponding abnormality on same-day CT. No hydronephrosis. Pancreas is nondiagnostic secondary to overlying bowel gas. Impression: 1. Very small gallstones at the level of the gallbladder neck with gallbladder wall thickening and tenderness upon transducer placement over the gallbladder. Acute cholecystitis not entirely excluded. No discrete pericholecystic fluid. 2. Likely diffuse liver steatosis. 3. Nondiagnostic pancreas. 4. Nonspecific small hyperechoic focus right mid renal pole. No corresponding abnormality on CT. This may represent focal sinus fat. Electronically signed by Rigoberto Dobson 05-30-2025 7:54 PM Diagnostic Findings EKG as per my interpretation :Rate 75, NSR, normal axis, T wave abnormalities l ateral leads
--- NOTE | 2025-05-30 21:44 | Surgery Consultation ---
Date of Consultation May 30, 2025 Assessment & Plan (1) Cholelithiases: Patient is a 39-year-old male, currently incarcerated at [facility], with PMH of PE on warfarin presenting to the emergency department with complaints of RUQ abdominal pain. Patient states that the pain started last evening around 1 AM and had woken him up from sleep and states the pain has been persistent since. Upon workup this evening patient found to have gallstones and gallbladder wall thickening on imaging and on exam he does elicit tenderness in the RUQ. The patient states his last dose of warfarin was last evening, INR currently 2.9. At this time patient will be admitted to the medical service and from a surgery perspective recommend patient receive vitamin K for reversal and we will tentatively plan for cholecystectomy early this week. Currently, patient denies any nausea or vomiting, okay for a diet for now. Continue to trend labs. Recommend IV antibiotic coverage with Zosyn. Pain control and antiemetics as needed. Supervising Physician Co-Signing Physician Notes pnt d/w PEREZ, labs and imaging reviewed, agree with above. On coumadin, presented with RUQ pain, tenderness. WBC normal but left shift. CT and US personally reviewed and interpreted, agree with distended gallbladder with stones, no pericholecystic fluid. SUspected early cholecystitis, admit to medicine, hold coumadin, add vit k, Await inr <1.5, plan for cholecystectomy History of Present Illness Reason for Consultation: abdominal pain History of Present Illness Patient is a 39-year-old male, currently incarcerated at [facility], with PMH of PE on warfarin presenting to the emergency department with complaints of abdominal pain. Patient states that the pain started last evening around 1 AM and had woken him up from sleep and states the pain has been persistent since. He denies ever having pain like this in the past. Patient states the pain is located in his right upper quadrant and radiates into the back of his shoulder blades. He also has had associated nausea due to the pain however denies any episodes of vomiting. Due to his ongoing symptoms, he was brought into the emergency department for further evaluation. Upon workup patient with unremarkable labs, vital signs stable, however imaging revealed gallstones and gallbladder wall thickening. Patient also continuing with pain after multiple doses of pain medication in the emergency room. Due to these findings, general surgery was consulted for further evaluation the patient. The patient was seen and evaluated this evening at bedside in the emergency room, he is resting comfortably in bed and is nontoxic-appearing. Patient states that he is still having ongoing right upper quadrant pain at this time. However denies any nausea or vomiting. Patient denies ever having any previous abdominal surgeries. States that his last dose of warfarin was last evening and INR currently 2.9. Allergies Allergy/AdvReac Type Severity Reaction Status Date / Time No Known Allergies Allergy Verified 05/30/25 17:08 Home Medications Medication Instructions Recorded Confirmed Type amoxicillin 875 mg-potassium 1 tab PO BID 05/30/25 05/30/25 History clavulanate 125 mg tablet azithromycin 250 mg tablet 250 mg PO DAILY 05/30/25 05/30/25 History hydrochlorothiazide 12.5 mg capsule 12.5 mg PO DAILY 05/30/25 05/30/25 History hydroxyzine pamoate 50 mg capsule 100 mg PO HS 05/30/25 05/30/25 History lamotrigine 100 mg tablet 200 mg PO HS 05/30/25 05/30/25 History (Lamictal) metoprolol tartrate 25 mg tablet 25 mg PO BID 05/30/25 05/30/25 History olanzapine 20 mg tablet 20 mg PO HS 05/30/25 05/30/25 History rosuvastatin 40 mg tablet 40 mg PO HS 05/30/25 05/30/25 History venlafaxine 150 mg 300 mg PO HS 05/30/25 05/30/25 History capsule,extended release 24 hr (Effexor XR) warfarin 5 mg tablet 5 mg PO HS 05/30/25 05/30/25 History Patient History Medical History Bipolar I disorder Creatinine elevation Acute respiratory failure with hypoxia Pulmonary embolism Surgical History No pertinent past surgical history Social History Smoking Status: Former smoker Second Hand Exposure: No; Do You Dip or Chew Tobacco: No; Hx Alcohol Use: No Hx Substance Use: No Preferred Language: 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 Beliefs That Will Affect Care: None Current Living Situation: Other Current Living Situation Comment: [facility] Other Information That Helps Us Care for You: No Feels Safe at Home: Yes Safety Concerns: Feels Safe At This Time Assistive Devices: None Review of Systems Constitutional: no fever, no chills and no weakness Respiratory: no cough and no chest congestion Cardiovascular: no chest pain, no palpitations and no syncope Gastrointestinal: as per Subjective / HPI, + abdominal pain and + nausea; no vomiting and no change in bowel habits Physical Exam Constitutional: WD/WN, vitals as above Respiratory: normal respiratory effort, lungs clear to auscultation Cardiovascular: Rate/Rhythm: regular rate Gastrointestinal (Abdomen): Abdomen soft, nondistended, +TTP in the RUQ +Cason's sign No rebound, guarding or signs of peritonitis Skin: no rashes, warm and dry Results & Data Vital Signs (Past 12 Hours) Vital Signs Temp Pulse Pulse Resp BP BP Pulse Ox 05/30/25 20:19 76 22 188/140 H 94 05/30/25 20:00 75 18 206/125 H 96 05/30/25 18:21 73 20 194/125 H 95 05/30/25 16:31 36.6 C 71 16 209/114 H 95 O2 Del Method 05/30/25 20:19 Room Air 05/30/25 20:00 Room Air 05/30/25 18:21 Room Air 05/30/25 16:31 Diagnostic Findings Exam: CT abdomen/pelvis with IV contrast. Reason for exam: Upper right abdominal pain. Previous studies: CT abdomen/pelvis 05/25/2021 FINDINGS: The lower lung zone show minimal linear atelectasis. Previous left pleural effusion has resolved. Liver shows mild diffuse fatty infiltrate. Gallbladder is mildly distended but no wall thickening or radiopaque calculi noted. Pancreas and spleen are unremarkable. Abdomen and glands are unremarkable. Kidneys small cortical cyst but otherwise unremarkable. Appendix normal in appearance. Urinary bladder mildly distended. No pelvic mass, adenopathy seen. Small right inguinal hernia containing fat only is noted. No evidence of bowel obstruction or free. IMPRESSION: 1. Mild hepatic steatosis. 2. Mildly distended gallbladder without other gallbladder abnormality. Since this is the region of clinical pain however, this could be further evaluated with ultrasound study. 3. Mildly distended urinary bladder. 4. Small right inguinal hernia containing fat only. Exam: Gallbladder ultrasound. History: Right upper quadrant pain. Comparison:None. Findings: Liver demonstrates absence of normal periportal fatty echoes. No appreciated mass or ductal dilatation. Main portal vein is patent. Gallbladder is at least moderately distended. Small hyperechoic foci along the gallbladder neck noted. There appears to be mild acoustic impedance. Gallbladder wall is thickened at 5 mm. No pericholecystic fluid. Patient does demonstrate tenderness upon transducer placement over the gallbladder. Common duct measures 5 mm diameter. Right kidney measures 11.7 cm in length. Small hyperechoic focus along the mid kidney at the level of the calyx is noted. No acoustic impedance. No discrete corresponding abnormality on same-day CT. No hydronephrosis. Pancreas is nondiagnostic secondary to overlying bowel gas. Impression: 1. Very small gallstones at the level of the gallbladder neck with gallbladder wall thickening and tenderness upon transducer placement over the gallbladder. Acute cholecystitis not entirely excluded. No discrete pericholecystic fluid. 2. Likely diffuse liver steatosis. 3. Nondiagnostic pancreas. 4. Nonspecific small hyperechoic focus right mid renal pole. No corresponding abnormality on CT. This may represent focal sinus fat. PG Care Time/CCT Total # of Minutes Spent Total Time Spent with Patient: Total time spent is greater than 50% in coordination of care (as documented) at patient's floor/unit and/or counseling patient: [place] [address] Office/OBS Consult Lvl 1 Patient Type New Medical Decision Making Straight Forward Diagnoses Cholelithiases K80.20
[2025-05-30] MEDS: METOPROLOL TARTRATE 1 MG/ML VIAL IV STA (21:53)
[2025-05-30 22:17] LABS: Appearance Urine Clear (Clear); Bacteria Urine Automated None Seen (None Seen); Cast Urine Automated 0-2 /lpf (0-2); Epithelial Cell Urine Auto 0-2 /hpf (0-2); Glucose Urine UA Negative (Negative); WBC Urine Automated 0-5 /hpf (0-5)
[2025-05-30] MEDS ORDERED: PROMETHAZINE 12.5 MG/50.5 ML BAG IV PRN (22:22)
[2025-05-30] MEDS ORDERED: LORazepam 0.5 MG TAB PO PRN (22:22)
[2025-05-30] MEDS ORDERED: ACETAMINOPHEN 500 MG TAB PO PRN (22:22)
[2025-05-30] MEDS: VENLAFAXINE HCL XR 150 MG CAPXR PO SCH (22:42)
[2025-05-30] MEDS: OLANZapine 20 MG TABLET PO SCH (22:42)
[2025-05-30] MEDS: PHYTONADIONE 5 MG TAB PO STA (22:42)
[2025-05-30] MEDS: lamoTRIgine 100 MG TAB PO SCH (22:43)
[2025-05-30] MEDS: PIPERACILLIN/TAZOBACTAM 4.5 GM/100 ML BAG IV STA (22:43)
[2025-05-31] MEDS: METOPROLOL TARTRATE 25 MG TAB PO SCH (00:40)
[2025-05-31] MEDS: MoRPHine SULFATE 4 MG/ML 1 ML CARP\\VIAL IV PRN (04:01)
[2025-05-31] MEDS: PIPERACILLIN/TAZOBACTAM 4.5 GM/100 ML BAG IV SCH (04:08)
[2025-05-31 05:57] LABS: Hematocrit (blood only) 44.2 % (42.0-52.0); Hemoglobin 14.7 g/dL (14.0-18.0); Immature Granulocytes # (auto) 0.07 K/uL (0.01-0.20); Immature Granulocytes % (auto) 0.5 %; Mean Corpuscular Hemoglobin 27.9 pg (25.0-34.0); Mean Corpuscular Volume 83.9 fL (80.0-100.0); Platelet Count 303 K/uL (130-400); RDW Standard Deviation 42.6 fL (36.4-46.3); Red Blood Count 5.27 M/uL (4.70-6.10); White Blood Count 14.14 K/ul (4.8-10.8)
[2025-05-31 06:15] LABS: Alanine Aminotransferase 32.0 U/L (7-52); Albumin Globulin Ratio 1.4 (0.9-2); Albumin Level 4.6 gm/dl (3.4-5.0); Alkaline Phosphatase 113.0 U/L (34-104); Anion Gap 9.0 (3-11); Bilirubin,Total 0.6 mg/dl (0.2-1.0); Blood Urea Nitrogen 16.0 mg/dl (6-23); Calcium 9.2 mg/dl (8.6-10.3); Carbon Dioxide 27.0 mmol/L (21-32); Chloride 101.0 mmol/L (98-107); Creatinine Clr Calc Pharmacy 133.4 ml/min; Globulin 3.3 gm/dl (2.5-4.0); Glucose 122.0 mg/dl (70-99(Fasting)); Potassium 4.2 mmol/L (3.5-5.1); Sodium 137.0 mmol/L (136-145); Total Protein 7.9 gm/dl (6.0-8.3)
[2025-05-31 06:49] LABS: INR 2.6 (0.9-1.1); Prothrombin Time 25.6 Seconds (9.0-12.0)
[2025-05-31] MEDS ORDERED: METOPROLOL TARTRATE 25 MG TAB PO SCH (09:00)
--- NOTE | 2025-05-31 09:56 | Hospitalist Progress Note ---
<Statement entered by Joseph Covarrubias, DO - 05/31/25 12:52> I have seen and examined the patient and have discussed the case with the advance practice provider. I have reviewed the advanced practitioner's documentation, and I agree with, and take responsibility for that plan of care. Patient reports minimal right upper quadrant tenderness. Tolerating clear liquids Abdomen: Soft, no guarding or rigidity, no significant Cason sign. Discussed monitoring and trending INR with Albert Bhakta surgery note Plan of care as outlined below I spent a total of 15 minutes coordinating, documenting, and providing care for this patient excluding time spent by another provider/QHP. Date of Service May 31, 2025 Assessment & Plan (1) Acute calculous cholecystitis: (2) Bipolar I disorder: (3) Pulmonary embolism: (4) HTN (hypertension): Plan This is a 39yo M with PMH of HTN, HLD, pulmonary embolism on Coumadin, prediabetes, mood disorder, past substance use who presents from [facility] with abdominal pain consistent with acute calculous cholecystitis. Acute calculous cholecystitis Non-toxic appearance CT abd/pelvis with mildly distended gallbladder without other gallbladder abnormality GB ultrasound with very small gallstones at the level of the gallbladder neck with gallbladder wall thickening and tenderness upon transducer placement over the gallbladder Continue Zosyn Given 10mg Vit K last night to reverse INR -currently 2.6, repeating this afternoon Gen surg consulted - planning for OR tomorrow, need INR <1.5 Pain control, IV fluids HTN Improved with optimized pain control Continue HCTZ, Lopressor History of PE 3 years ago Holding coumadin, reversing INR with plans for OR as able Mood disorder, at baseline Continue Lamictal, Effexor, olanzapine, hydroxyzine DVT Ppx: holding coumadin for planned OR tomorrow Code status: FULL PCP: ANURAG Hwang Dispo: Admitted to med/surg Patient seen in collaboration with Dr. Covarrubias. Please see addendum. I spent a total of 45 minutes coordinating, documenting, and providing care for this patient excluding time spent in the performance of separately billed services or time spent by another provider/QHP. Admission and Anticipated Discharge Date Admission Date: May 30, 2025 Subjective Seen and examined in 307. Some RUQ discomfort, exacerbated with deep inspiration. No F/C, N/V or SOB. No dysuria, diarrhea or constipation. PRN medications helpful. Is on Coumadin for history of PE 3 years ago. Review of Systems Review of Systems: At least ten systems reviewed and negative except as noted in the HPI. Physical Exam 2 Physical Exam: Gen: WD/WN, NAD, resting in bed, A&Ox3 HEENT: Normocephalic, atraumatic, mucous membranes moist Lung: Clear to Auscultation bilaterally Heart: Regular rate, regular rhythm Abdomen: Soft, + RUQ TTP, ND +BS x 4 Extremities: no edema Skin: Warm, no rash Results & Data Results & Data Vital Signs (Past 12 Hours) Vital Signs Temp Pulse Pulse Resp BP BP Pulse Ox 05/31/25 07:13 36.9 C 87 18 134/92 90 05/31/25 04:01 101 H 143/91 H 05/31/25 00:45 85 159/91 H 05/30/25 23:28 36.1 C L 78 20 200/130 H 91 05/30/25 23:19 36.1 C L 78 16 200/130 H 91 05/30/25 23:03 73 18 183/107 H 94 05/30/25 22:54 80 18 179/112 H 94 05/30/25 22:26 82 156/102 H 05/30/25 22:00 81 16 171/103 H 94 O2 Del Method 05/31/25 07:13 Room Air 05/31/25 04:01 05/31/25 00:45 05/30/25 23:28 Room Air 05/30/25 23:19 Room Air 05/30/25 23:03 Room Air 05/30/25 22:54 Room Air 05/30/25 22:26 05/30/25 22:00 Laboratory Results Short CBC 05/30/25 05/31/25 Range/Units 16:46 05:35 WBC 9.59 14.14 H (4.8-10.8) K/ul Hgb 15.1 14.7 (14.0-18.0) g/dL Hct 44.4 44.2 (42.0-52.0) % Plt Count 320 303 (130-400) K/uL BMP 05/30/25 05/31/25 16:46 05:35 Sodium 140 137 Potassium 4.1 4.2 Chloride 105 101 Carbon Dioxide 26 27 BUN 17 16 Creatinine 1.01 0.95 Glucose 141 H 122 H Calcium 9.2 9.2 Liver Function 05/30/25 05/31/25 Range/Units 16:46 05:35 Total Bilirubin 0.3 0.6 (0.2-1.0) mg/dl AST 18 21 (13-39) U/L ALT 27 32 (7-52) U/L Alkaline Phosphatase 116 H 113 H (34-104) U/L Albumin 4.6 4.6 (3.4-5.0) gm/dl Urine 05/30/25 Range/Units 21:44 Urine Color Yellow Urine Appearance Clear (Clear) Urine pH 6.0 (4.5-7.5) Ur Specific [place] > 1.045 H (1.000-1.030) Urine Protein 2+ H (Negative) Urine Glucose (UA) Negative (Negative) Diagnostic Findings Abdomen/Pelvis CT 05/30/25 16:39 Exam: CT abdomen/pelvis with IV contrast. Reason for exam: Upper right abdominal pain. Previous studies: CT abdomen/pelvis 05/25/2021 FINDINGS: The lower lung zone show minimal linear atelectasis. Previous left pleural effusion has resolved. Liver shows mild diffuse fatty infiltrate. Gallbladder is mildly distended but no wall thickening or radiopaque calculi noted. Pancreas and spleen are unremarkable. Abdomen and glands are unremarkable. Kidneys small cortical cyst but otherwise unremarkable. Appendix normal in appearance. Urinary bladder mildly distended. No pelvic mass, adenopathy seen. Small right inguinal hernia containing fat only is noted. No evidence of bowel obstruction or free. IMPRESSION: 1. Mild hepatic steatosis. 2. Mildly distended gallbladder without other gallbladder abnormality. Since this is the region of clinical pain however, this could be further evaluated with ultrasound study. 3. Mildly distended urinary bladder. 4. Small right inguinal hernia containing fat only. Electronically signed by Cornel Pandey 05-30-2025 6:41 PM Chest CTA 05/30/25 16:39 Exam: CT angiogram chest with pulmonary embolus protocol. Perfusion for exam: Pain under right ribs. Previous studies: 05/06/2023. FINDINGS: There is good opacification of the pulmonary arteries. At this time no persistent filling defect to indicate pulmonary embolus is seen on either side. Pulmonary artery normal in size without evidence of right ventricular strain. Exam shows some mild areas of chronic fibrotic thickening unchanged since a previous study of 05/06/2023, but no acute appearing infiltrate, collapse or edema is seen at this time. No active pleural effusion or pneumothorax is noted. Aorta is not well opacified. No significant coronary calcifications noted. No suspicious abnormal hilar or mediastinal mass or adenopathy is seen. IMPRESSION: 1. Negative for pulmonary embolus. 2. Mild scattered areas of chronic linear pulmonary fibrosis. Otherwise negative for active cardiopulmonary disease at this time. Electronically signed by Cornel Pandey 05-30-2025 6:48 PM Gallbladder Ultrasound 05/30/25 18:42 Exam: Gallbladder ultrasound. History: Right upper quadrant pain. Comparison:None. Findings: Liver demonstrates absence of normal periportal fatty echoes. No appreciated mass or ductal dilatation. Main portal vein is patent. Gallbladder is at least moderately distended. Small hyperechoic foci along the gallbladder neck noted. There appears to be mild acoustic impedance. Gallbladder wall is thickened at 5 mm. No pericholecystic fluid. Patient does demonstrate tenderness upon transducer placement over the gallbladder. Common duct measures 5 mm diameter. Right kidney measures 11.7 cm in length. Small hyperechoic focus along the mid kidney at the level of the calyx is noted. No acoustic impedance. No discrete corresponding abnormality on same-day CT. No hydronephrosis. Pancreas is nondiagnostic secondary to overlying bowel gas. Impression: 1. Very small gallstones at the level of the gallbladder neck with gallbladder wall thickening and tenderness upon transducer placement over the gallbladder. Acute cholecystitis not entirely excluded. No discrete pericholecystic fluid. 2. Likely diffuse liver steatosis. 3. Nondiagnostic pancreas. 4. Nonspecific small hyperechoic focus right mid renal pole. No corresponding abnormality on CT. This may represent focal sinus fat. Electronically signed by Rigoberto Dobson 05-30-2025 7:54 PM
--- NOTE | 2025-05-31 10:28 | Surgery Progress Note ---
Date of Service May 31, 2025 Assessment & Plan (1) Acute calculous cholecystitis: Plan: Cholelithiasis with acute cholecystitis, INR still elevated. Continue vitamin K, continue IV antibiotics. May have clear liquids today, n.p.o. after midnight Okay to operate once INR is below 1.5 Plan for laparoscopic cholecystectomy once INR normalizes risks discussed to include but not limited to bleeding, infection, retained stone, bile leak, open surgery, damage to surrounding structures including bile duct, need for future or more extensive surgery, failure to treat symptoms, and risks of anesthesia. (2) Pulmonary embolism: (3) Bipolar I disorder: Admission and Anticipated Discharge Date Admission Date: May 30, 2025 Subjective Admitted with cholecystitis, on Coumadin for history of PE. Still with some right upper quadrant pain. States this has been going on for some time and is fairly constant. Physical Exam Constitutional: WD/WN, vitals as above + obese Respiratory: normal respiratory effort, lungs clear to auscultation Cardiovascular: RRR, no murmur, no edema Gastrointestinal (Abdomen): Percussion/Palpation: + abdomen tender (Moderate tenderness to palpation right upper quadrant) and abdomen soft; no guarding and abdomen not rigid Results & Data Vital Signs (Past 12 Hours) Vital Signs Temp Pulse Pulse Resp BP BP Pulse Ox 05/31/25 07:13 36.9 C 87 18 134/92 90 05/31/25 04:01 101 H 143/91 H 05/31/25 00:45 85 159/91 H 05/30/25 23:28 36.1 C L 78 20 200/130 H 91 05/30/25 23:19 36.1 C L 78 16 200/130 H 91 05/30/25 23:03 73 18 183/107 H 94 05/30/25 22:54 80 18 179/112 H 94 O2 Del Method 05/31/25 07:13 Room Air 05/31/25 04:01 05/31/25 00:45 05/30/25 23:28 Room Air 05/30/25 23:19 Room Air 05/30/25 23:03 Room Air 05/30/25 22:54 Room Air Laboratory Results Laboratory Results - last 24 hr 05/30/25 05/30/25 05/30/25 16:46 21:44 Unknown WBC 9.59 RBC 5.36 Hgb 15.1 Hct 44.4 MCV 82.8 MCH 28.2 MCHC 34.0 RDW Std Deviation 40.5 RDW Coeff of Aleksandr 13.6 Plt Count 320 MPV 8.3 L Immature Gran % (Auto) 1.1 Neut % (Auto) 71.7 Lymph % (Auto) 16.3 Dent % (Auto) 8.0 Eos % (Auto) 1.9 Baso % (Auto) 1.0 Neut # (Auto) 6.87 H Lymph # (Auto) 1.56 Dent # (Auto) 0.77 H Eos # (Auto) 0.18 Baso # (Auto) 0.10 Immature Gran # (Auto) 0.11 PT 28.5 H INR 2.9 H APTT 44 H PTT Ratio 1.6 Sodium 140 Potassium 4.1 Chloride 105 Carbon Dioxide 26 Anion Gap 9 BUN 17 Creatinine 1.01 Est Cr Clr Drug Dosing 128.8 eGFR 95.82 BUN/Creatinine Ratio 16.8 Glucose 141 H Calcium 9.2 Total Bilirubin 0.3 AST 18 ALT 27 Alkaline Phosphatase 116 H Troponin I High Sens 2.7 Total Protein 7.9 Albumin 4.6 Globulin 3.3 Albumin/Globulin Ratio 1.4 Lipase 15 Urine Color Yellow Urine Appearance Clear Urine pH 6.0 Ur Specific [place] > 1.045 H Urine Protein 2+ H Urine Glucose (UA) Negative Urine Ketones Negative Urine Blood 1+ H Urine Nitrite Negative Urine Bilirubin Negative Urine Urobilinogen Negative Ur Leukocyte Esterase Negative Urine WBC (Auto) 0-5 Urine RBC (Auto) 6-10 H U Hyaline Cast (Auto) 0-2 U Epithel Cells (Auto) 0-2 Urine Bacteria (Auto) None Seen Urine Comment Nasal Screen MRSA (PCR) Negative 05/31/25 05:35 WBC 14.14 H RBC 5.27 Hgb 14.7 Hct 44.2 MCV 83.9 MCH 27.9 MCHC 33.3 RDW Std Deviation 42.6 RDW Coeff of Aleksandr 14.0 Plt Count 303 MPV 8.3 L Immature Gran % (Auto) 0.5 Neut % (Auto) 79.7 Lymph % (Auto) 9.1 Dent % (Auto) 9.1 Eos % (Auto) 1.2 Baso % (Auto) 0.4 Neut # (Auto) 11.28 H Lymph # (Auto) 1.28 Dent # (Auto) 1.28 H Eos # (Auto) 0.17 Baso # (Auto) 0.06 Immature Gran # (Auto) 0.07 PT 25.6 H INR 2.6 H APTT PTT Ratio Sodium 137 Potassium 4.2 Chloride 101 Carbon Dioxide 27 Anion Gap 9 BUN 16 Creatinine 0.95 Est Cr Clr Drug Dosing 133.4 eGFR 103.13 BUN/Creatinine Ratio 16.8 Glucose 122 H Calcium 9.2 Total Bilirubin 0.6 AST 21 ALT 32 Alkaline Phosphatase 113 H Troponin I High Sens Total Protein 7.9 Albumin 4.6 Globulin 3.3 Albumin/Globulin Ratio 1.4 Lipase Urine Color Urine Appearance Urine pH Ur Specific [place] Urine Protein Urine Glucose (UA) Urine Ketones Urine Blood Urine Nitrite Urine Bilirubin Urine Urobilinogen Ur Leukocyte Esterase Urine WBC (Auto) Urine RBC (Auto) U Hyaline Cast (Auto) U Epithel Cells (Auto) Urine Bacteria (Auto) Urine Comment Nasal Screen MRSA (PCR) Diagnostic Findings Abdomen/Pelvis CT 05/30/25 16:39 Exam: CT abdomen/pelvis with IV contrast. Reason for exam: Upper right abdominal pain. Previous studies: CT abdomen/pelvis 05/25/2021 FINDINGS: The lower lung zone show minimal linear atelectasis. Previous left pleural effusion has resolved. Liver shows mild diffuse fatty infiltrate. Gallbladder is mildly distended but no wall thickening or radiopaque calculi noted. Pancreas and spleen are unremarkable. Abdomen and glands are unremarkable. Kidneys small cortical cyst but otherwise unremarkable. Appendix normal in appearance. Urinary bladder mildly distended. No pelvic mass, adenopathy seen. Small right inguinal hernia containing fat only is noted. No evidence of bowel obstruction or free. IMPRESSION: 1. Mild hepatic steatosis. 2. Mildly distended gallbladder without other gallbladder abnormality. Since this is the region of clinical pain however, this could be further evaluated with ultrasound study. 3. Mildly distended urinary bladder. 4. Small right inguinal hernia containing fat only. Electronically signed by Cornel Pandey 05-30-2025 6:41 PM Chest CTA 05/30/25 16:39 Exam: CT angiogram chest with pulmonary embolus protocol. Perfusion for exam: Pain under right ribs. Previous studies: 05/06/2023. FINDINGS: There is good opacification of the pulmonary arteries. At this time no persistent filling defect to indicate pulmonary embolus is seen on either side. Pulmonary artery normal in size without evidence of right ventricular strain. Exam shows some mild areas of chronic fibrotic thickening unchanged since a previous study of 05/06/2023, but no acute appearing infiltrate, collapse or edema is seen at this time. No active pleural effusion or pneumothorax is noted. Aorta is not well opacified. No significant coronary calcifications noted. No suspicious abnormal hilar or mediastinal mass or adenopathy is seen. IMPRESSION: 1. Negative for pulmonary embolus. 2. Mild scattered areas of chronic linear pulmonary fibrosis. Otherwise negative for active cardiopulmonary disease at this time. Electronically signed by Cornel Pandey 05-30-2025 6:48 PM Gallbladder Ultrasound 05/30/25 18:42 Exam: Gallbladder ultrasound. History: Right upper quadrant pain. Comparison:None. Findings: Liver demonstrates absence of normal periportal fatty echoes. No appreciated mass or ductal dilatation. Main portal vein is patent. Gallbladder is at least moderately distended. Small hyperechoic foci along the gallbladder neck noted. There appears to be mild acoustic impedance. Gallbladder wall is thickened at 5 mm. No pericholecystic fluid. Patient does demonstrate tenderness upon transducer placement over the gallbladder. Common duct measures 5 mm diameter. Right kidney measures 11.7 cm in length. Small hyperechoic focus along the mid kidney at the level of the calyx is noted. No acoustic impedance. No discrete corresponding abnormality on same-day CT. No hydronephrosis. Pancreas is nondiagnostic secondary to overlying bowel gas. Impression: 1. Very small gallstones at the level of the gallbladder neck with gallbladder wall thickening and tenderness upon transducer placement over the gallbladder. Acute cholecystitis not entirely excluded. No discrete pericholecystic fluid. 2. Likely diffuse liver steatosis. 3. Nondiagnostic pancreas. 4. Nonspecific small hyperechoic focus right mid renal pole. No corresponding abnormality on CT. This may represent focal sinus fat. Electronically signed by Rigoberto Dobson 05-30-2025 7:54 PM PG Care Time/CCT Total # of Minutes Spent Total Time Spent with Patient: Total time spent is greater than 50% in coordination of care (as documented) at patient's floor/unit and/or counseling patient: Coding Level of Care Code 03190 SUB INP/OBS CARE 2/35MIN Diagnoses Acute calculous cholecystitis K80.00 Pulmonary embolism I26.99 Bipolar I disorder F31.9
--- NOTE | 2025-05-31 11:53 | Electrocardiogram Report ---
Test Reason : Blood Pressure : */* mmHG Vent. Rate : 73 BPM Atrial Rate : 73 BPM P-R Int : 166 ms QRS Dur : 100 ms QT Int : 388 ms P-R-T Axes : 68 36 80 degrees QTcB Int : 427 ms Normal sinus rhythm with sinus arrhythmia Normal ECG When compared with ECG of 06-May-2023 21:19, No significant change was found Confirmed by Reginald Frazier ([id number]) on 05/31/2025 11:53:02 AM Referred By: REFERRED SELF Confirmed By: Reginald Frazier
[2025-05-31] MEDS ORDERED: ACETAMINOPHEN 500 MG TAB PO PRN (15:39)
[2025-05-31 15:56] LABS: INR 1.9 (0.9-1.1); Prothrombin Time 19.8 Seconds (9.0-12.0)
[2025-05-31] MEDS: ROSUVASTATIN CALCIUM 20 MG TAB PO SCH (20:03)
[2025-06-01 06:10] LABS: Hematocrit (blood only) 38.4 % (42.0-52.0); Hemoglobin 13.1 g/dL (14.0-18.0); Mean Corpuscular Hemoglobin 28.9 pg (25.0-34.0); Mean Corpuscular Volume 84.8 fL (80.0-100.0); Platelet Count 302 K/uL (130-400); RDW Standard Deviation 43.6 fL (36.4-46.3); Red Blood Count 4.53 M/uL (4.70-6.10); White Blood Count 12.14 K/ul (4.8-10.8)
[2025-06-01 06:43] LABS: Anion Gap 8.0 (3-11); Blood Urea Nitrogen 30.0 mg/dl (6-23); Calcium 8.9 mg/dl (8.6-10.3); Carbon Dioxide 29.0 mmol/L (21-32); Chloride 97.0 mmol/L (98-107); Creatinine Clr Calc Pharmacy 57.9 ml/min; Glucose 115.0 mg/dl (70-99(Fasting)); Potassium 3.8 mmol/L (3.5-5.1); Sodium 134.0 mmol/L (136-145)
[2025-06-01 06:50] LABS: INR 1.5 (0.9-1.1); Prothrombin Time 15.3 Seconds (9.0-12.0)
[2025-06-01] MEDS: SODIUM CHLORIDE 0.9% 1,000 ML IV SCH (08:26)
--- NOTE | 2025-06-01 10:59 | Hospitalist Progress Note ---
<Statement entered by Joseph Covarrubias, DO - 06/01/25 11:20> I have seen and examined the patient and have discussed the case with the advance practice provider. I have reviewed the advanced practitioner's documentation, and I agree with, and take responsibility for that plan of care. Patient states abdominal pain well-controlled. Anticipating surgery later on today. Reviewed kidney function, patient received CTA of the chest and CT of the abdomen pelvis with IV contrast on day of admission, concern for possible contrast-induced nephropathy IV fluids Monitor renal function Further plan of care as outlined below I spent a total of 14 minutes coordinating, documenting, and providing care for this patient excluding time spent by another provider/QHP. Date of Service June 01, 2025 Assessment & Plan (1) Acute calculous cholecystitis: (2) JOSE (acute kidney injury): (3) Bipolar I disorder: (4) Pulmonary embolism: (5) HTN (hypertension): Plan Patient is a 39y/o M with PMHx significant for HTN, HLD, history of pulmonary embolism anticoagulated on Coumadin, prediabetes, mood disorder and past substance use who presented to the ED from [facility] on 05/30/2025 with c/o RUQ abdominal pain and was found to have acute calculous cholecystitis. Acute calculous cholecystitis Remains hemodynamically stable, nontoxic appearance. Imaging including CTAP and gallbladder US c/w suspected early cholecystis. Plan for OR today for laparoscopic cholecystectomy with Dr. Carrion if schedule allows (given successful INR reversal s/p vit K). Continue IV Zosyn and PRN analgesia. Acute kidney injury Significant increase in creatinine overnight (0.95 >> 2.19), elevated BUN. Prior to this his creatinine has been stable. Suspect possible contrast-induced nephropathy (s/p CTAP with con and chest CTA on 05/30) >> IVF ordered, repeat BMP later this evening. Hypertension BP downtrended this AM, patient asymptomatic. Holding HCTZ. Continue Lopressor for now as BP allows. IVF onboard as per above, monitor response. History of PE on chronic oral anticoagulation therapy with Coumadin Was diagnosed 3yr ago. Holding Coumadin for now in anticipation of surgery as per above, INR reversed with vit K. Mood disorder Well-controlled, at baseline. Continue [employer] psych med regimen including Lamictal, Effexor, olanzapine and hydroxyzine. DVT Prophylaxis: SCDs/TEDs, Coumadin on hold as per above Code Status: FULL CODE Disposition: Possible DC back to [facility] in 1-2 days depending on OR availability, postop course. Patient seen in collaboration with Dr. Covarrubias. Please see addendum. I spent a total of 44 minutes coordinating, documenting, and providing care for this patient excluding time spent in the performance of separately billed services or time spent by another provider/QHP. This included personally reviewing all current laboratories and imaging studies, medical reconciliation, outpatient chart review and discussion with specialists. This chart was completed in part utilizing Speech Voice Recognition Software. Grammatical errors, random word insertions, pronoun errors, and incomplete sentences are an occasional consequence of this system due to software limitations, ambient noise, and hardware issues. Any formal questions or concerns about the content, text, or information contained within the body of this dictation should be directly addressed to the provider for clarification. Admission and Anticipated Discharge Date Admission Date: May 30, 2025 Subjective Patient seen and examined in E307-1. Still with some RUQ abdominal discomfort, exacerbated with deep inspiration. Denies any chest pain or SOB. PRN analgesia has been helpful. Tentative plan for OR today for laparoscopic cholecystectomy. Review of Systems Review of Systems: At least ten systems reviewed and negative, except as noted in the subjective section. Physical Exam Physical Exam: General: Obese M, NAD, sitting up in bed. A&Ox3, conversing appropriately. HEENT: Normocephalic, atraumatic. External ear and nose normal, oropharynx moist. Respiratory: Normal respiratory effort, CTAB. Cardiovascular: RRR, no BLE edema. Abdomen/GI: Active bowel sounds, soft, + mild RUQ TTP, no guarding or rigidity. Extremities/Musculoskeletal: No cyanosis or clubbing, extremities motor strength intact, moves all extremities. Neurologic: No overt focal deficits, CN's II-XI not formally tested but appear grossly intact bilaterally. Results & Data Results & Data Vital Signs (Past 12 Hours) Vital Signs Temp Pulse Resp BP Pulse Ox O2 Del Method 06/01/25 08:36 37.0 C 80 18 94/58 L 90 Room Air Laboratory Results Short CBC 06/01/25 Range/Units 05:32 WBC 12.14 H (4.8-10.8) K/ul Hgb 13.1 L (14.0-18.0) g/dL Hct 38.4 L (42.0-52.0) % Plt Count 302 (130-400) K/uL [facility] 06/01/25 05:32 Sodium 134 L Potassium 3.8 Chloride 97 L Carbon Dioxide 29 BUN 30 H Creatinine 2.19 H D Glucose 115 H Calcium 8.9
--- NOTE | 2025-06-01 11:09 | Surgery Progress Note ---
Date of Service June 01, 2025 Assessment & Plan (1) Acute calculous cholecystitis: Plan: Cholelithiasis with cholecystitis plan for laparoscopic cholecystectomy this week risks discussed to include but not limited to bleeding, infection, retained stone, bile leak, open surgery, damage to surrounding structures including bile duct, need for future or more extensive surgery, failure to treat symptoms, and risks of anesthesia. If no option for cholecystectomy today due to OR availability, he may have clear liquids, and we will plan for tomorrow or Sunday (2) Pulmonary embolism: (3) Obesity (BMI 35.0-39.9 without comorbidity): (4) Bipolar I disorder: (5) HTN (hypertension): Admission and Anticipated Discharge Date Admission Date: May 30, 2025 Subjective Admitted with cholelithiasis with early acute cholecystitis. Given vitamin K, INR 1.5 today. Physical Exam Constitutional: WD/WN, vitals as above + obese Respiratory: normal respiratory effort, lungs clear to auscultation Cardiovascular: RRR, no murmur, no edema Gastrointestinal (Abdomen): Percussion/Palpation: + abdomen tender (Mild tenderness palpation right upper quadrant) and abdomen soft; no guarding and abdomen not rigid Results & Data Vital Signs (Past 12 Hours) Vital Signs Temp Pulse Resp BP Pulse Ox O2 Del Method 06/01/25 08:36 37.0 C 80 18 94/58 L 90 Room Air Laboratory Results Laboratory Results - last 24 hr 05/31/25 06/01/25 15:08 05:32 WBC 12.14 H RBC 4.53 L Hgb 13.1 L Hct 38.4 L MCV 84.8 MCH 28.9 MCHC 34.1 RDW Std Deviation 43.6 RDW Coeff of Aleksandr 14.0 Plt Count 302 MPV 8.6 L PT 19.8 H 15.3 H INR 1.9 H 1.5 H Sodium 134 L Potassium 3.8 Chloride 97 L Carbon Dioxide 29 Anion Gap 8 BUN 30 H Creatinine 2.19 H D Est Cr Clr Drug Dosing 57.9 eGFR 37.85 BUN/Creatinine Ratio 13.7 Glucose 115 H Calcium 8.9 PG Care Time/CCT Total # of Minutes Spent Total Time Spent with Patient: Total time spent is greater than 50% in coordination of care (as documented) at patient's floor/unit and/or counseling patient: Coding Level of Care Code 31568 SUB INP/OBS CARE MIN Diagnoses Acute calculous cholecystitis K80.00 Pulmonary embolism I26.99 Obesity (BMI 35.0-39.9 without comorbidity) E66.9 Bipolar I disorder F31.9 HTN (hypertension) I10
[2025-06-01] MEDS ORDERED: LIDOCAINE 2% 2 ML VIAL/AMP(20MG/ML) INFIL ONE (12:32)
[2025-06-01] MEDS ORDERED: ROCURONIUM BROMIDE 10 MG/ML 5 ML VIAL IV ONE (12:32)
[2025-06-01] MEDS ORDERED: PROPOFOL IV EMULSION 10 MG/ML 20 ML VIAL IV ONE (12:32)
[2025-06-01] MEDS ORDERED: ONDANSETRON INJ 2 MG/ML 2 ML VIAL ONE (12:32)
[2025-06-01] MEDS ORDERED: DEXAMETHASONE SOD INJ 4 MG/ML VIAL ONE (12:32)
[2025-06-01] MEDS ORDERED: MIDAZOLAM HCL 1 MG/ML 2ML VIAL ONE (12:32)
[2025-06-01] MEDS ORDERED: GLYCOPYRROLATE 0.2 MG/ML VIAL ONE (12:32)
[2025-06-01] MEDS ORDERED: SUGAMMADEX SODIUM 200 MG/2 ML VIAL IV ONE (12:33)
[2025-06-01] MEDS ORDERED: PROMETHAZINE HCL 6.25 MG in SODIUM CHLORIDE 0.9% 50 ML IV PRN (12:34)
[2025-06-01] MEDS ORDERED: ONDANSETRON INJ 2 MG/ML 2 ML VIAL IV PRN (12:34)
[2025-06-01] MEDS ORDERED: ATROPINE SULFATE 0.1 MG/ML 10ML SYR IV PRN (12:34)
[2025-06-01] MEDS ORDERED: HYDROmorphone INJ 1 MG/ML SYRINGE IV PRN (12:34)
--- NOTE | 2025-06-01 13:34 | Anesthesiology Consultation ---
Date of Service June 01, 2025 Assessment & Plan (1) Encounter for pre-operative examination: Chart Review Chart Review: Acceptable Risk for Surgery and Patient NOT seen in Pre Admission Testing Consults Requested none History Surgery Operation Date: 06/01/25 11:40 Proposed Procedures p Laparoscopic Cholecystectomy - Cornel Carrion DO, FACS Height/Weight Height: 6 ft Weight: 114.1 kg Allergies Allergy/AdvReac Type Severity Reaction Status Date / Time No Known Allergies Allergy Verified 05/30/25 17:08 Medications Home Medications Medication Instructions Recorded Confirmed Last Taken amoxicillin 875 mg-potassium 1 tab PO BID 05/30/25 05/30/25 05/30/25 07:00 clavulanate 125 mg tablet azithromycin 250 mg tablet 250 mg PO DAILY 05/30/25 05/30/25 05/30/25 500 MG hydrochlorothiazide 12.5 mg capsule 12.5 mg PO DAILY 05/30/25 05/30/25 Unknown hydroxyzine pamoate 50 mg capsule 100 mg PO HS 05/30/25 05/30/25 05/29/25 lamotrigine 100 mg tablet 200 mg PO HS 05/30/25 05/30/25 05/29/25 (Lamictal) metoprolol tartrate 25 mg tablet 25 mg PO BID 05/30/25 05/30/25 Unknown olanzapine 20 mg tablet 20 mg PO HS 05/30/25 05/30/25 05/29/25 rosuvastatin 40 mg tablet 40 mg PO HS 05/30/25 05/30/25 Unknown venlafaxine 150 mg 300 mg PO HS 05/30/25 05/30/25 05/29/25 capsule,extended release 24 hr (Effexor XR) warfarin 5 mg tablet 5 mg PO HS 05/30/25 05/30/25 05/29/25 Active Medications Generic Name Dose Route Start Last Admin Trade Name Freq PRN Reason Stop Dose Admin Hydroxyzine HCl 100 mg 05/30/25 22:20 05/31/25 20:38 Hydroxyzine Hcl 25 Mg Tab PO 06/29/25 22:19 100 mg HS LIANE Administration Piperacillin Sod/Tazobactam Sod 4.5 gm in 100 mls @ 25 mls/hr 05/31/25 04:00 06/01/25 12:25 Zosyn IV 06/04/25 03:59 25 mls/hr Q8H LIANE Administration Protocol Sodium Chloride 1,000 mls @ 175 mls/hr 06/01/25 07:30 06/01/25 08:26 Nss IV 06/04/25 07:29 100 mls/hr .[id number] LIANE Administration Lamotrigine 200 mg 05/30/25 22:20 05/31/25 20:03 Lamotrigine 100 Mg Tab PO 06/29/25 22:19 200 mg HS LIANE Administration Protocol Metoprolol Tartrate 25 mg 05/31/25 00:35 06/01/25 08:20 Metoprolol Tartrate 25 Mg Tab PO 06/30/25 00:34 25 mg BID LIANE Administration Morphine Sulfate 4 mg 05/30/25 22:22 06/01/25 08:26 Morphine Sulfate 4 Mg/Ml 1 Ml Carp\Vial IV 06/13/25 22:21 4 mg Q4H PRN Administration Pain Olanzapine 20 mg 05/30/25 22:20 05/31/25 20:01 Olanzapine 20 Mg Tablet PO 06/29/25 22:19 20 mg HS LIANE Administration Oxycodone HCl 5 - 10 mg 05/30/25 22:22 05/31/25 17:08 Oxycodone Hcl Ir 5 Mg Tab (Immediate Release) PO 06/13/25 22:21 10 mg QID PRN Administration Pain Rosuvastatin Calcium 40 mg 05/31/25 21:00 05/31/25 20:03 Rosuvastatin Calcium 20 Mg Tab PO 06/30/25 20:59 40 mg HS LIANE Administration Venlafaxine HCl 300 mg 05/30/25 22:20 05/31/25 20:03 Venlafaxine Hcl Xr 150 Mg Capxr PO 06/29/25 22:19 300 mg HS LIANE Administration NPO Date Last Intake of Fluids: 05/31/25 Time Last Intake of Fluids: 09:00 Date Last Intake of Solids: 05/30/25 Time Last Intake of Solids: 20:00 Past Medical History Medical History (Updated 06/01/25 @ 13:34 by Arnaud Lilly MD) Encounter for pre-operative examination HTN (hypertension) Bipolar I disorder Creatinine elevation Acute respiratory failure with hypoxia Pulmonary embolism Past Surgical History Surgical History No pertinent past surgical history Social History Smoking Status: Former smoker Do You Dip or Chew Tobacco: No Hx Alcohol Use: No Hx Substance Use: No substance use type: does not use Physical Exam Vital Signs Last Vital Signs Temp 37.4 C 06/01/25 12:40 Pulse 85 06/01/25 12:40 Resp 20 06/01/25 12:40 BP 97/52 L 06/01/25 12:40 Pulse Ox 94 06/01/25 12:40 O2 Del Method Room Air 06/01/25 12:40 Testing Laboratory Results 06/01/25 05:32 06/01/25 05:32 PT 15.3 Seconds (9.0-12.0) H 06/01/25 05:32 INR 1.5 (0.9-1.1) H 06/01/25 05:32 APTT 44 Seconds (21-31) H 05/30/25 16:46 Urine Color Yellow 05/30/25 21:44 Urine Appearance Clear (Clear) 05/30/25 21:44 Urine pH 6.0 (4.5-7.5) 05/30/25 21:44 Ur Specific [place] > 1.045 (1.000-1.030) H 05/30/25 21:44 Urine Protein 2+ (Negative) H 05/30/25 21:44 Urine Glucose (UA) Negative (Negative) 05/30/25 21:44 Urine Ketones Negative (Negative) 05/30/25 21:44 Urine Nitrite Negative (Negative) 05/30/25 21:44 Ur Leukocyte Esterase Negative (Negative) 05/30/25 21:44 Urine WBC (Auto) 0-5 /hpf (0-5) 05/30/25 21:44 Urine RBC (Auto) 6-10 /hpf (0-2) H 05/30/25 21:44 U Hyaline Cast (Auto) 0-2 /lpf (0-2) 05/30/25 21:44 U Epithel Cells (Auto) 0-2 /hpf (0-2) 05/30/25 21:44 Urine Bacteria (Auto) None Seen (None Seen) 05/30/25 21:44 Electrocardiogram Date: 05/30/25 DICTATED BY: Reginald Frazier MD Test Reason : Blood Pressure : */* mmHG Vent. Rate : 73 BPM Atrial Rate : 73 BPM P-R Int : 166 ms QRS Dur : 100 ms QT Int : 388 ms P-R-T Axes : 68 36 80 degrees QTcB Int : 427 ms Normal sinus rhythm with sinus arrhythmia Normal ECG When compared with ECG of 06-May-2023 21:19, No significant change was found Confirmed by Reginald Frazier ([id number]) on 05/31/2025 11:53:02 AM
[2025-06-01] MEDS ORDERED: KETAMINE HCL 10MG/ML SYR ONE (13:35)
[2025-06-01] MEDS: BUPIVACAINE 0.5 % 5 MG/1 ML MPF 30ML VIAL ONE (14:39)
--- NOTE | 2025-06-01 14:44 | Operative Report ---
PG Post Operative Report Pre & Post Diagnosis Operation Date: 06/01/25 11:40 Pre-Op Diagnosis: Acute calculous cholecystitis Post-Op Diagnosis: Acute calculous cholecystitis I identified the patient and participated in the time-out.: Yes Procedure Operation Date: 06/01/25 11:40 Actual Procedures p Laparoscopic Cholecystectomy(Not Applicable) - Cornel Carrion DO, VINI Surgeon Cornel Carrion DO, VINI Speech Pathologist Viridiana Stokes Estimated Blood Loss 10 Findings Consistent with Post-Op Diagnosis Distended gallbladder, moderate acute cholecystitis. Critical view of safety obtained, cystic duct and artery doubly clipped and divided. Spillage of stones during extraction, retrieved. Specimens Gallbladder Anesthesia Type General Complications none Disposition Accompanied Patient To Recovery: No Disposition: Recovery Room Indications 39-year-old incarcerated male with acute cholecystitis, plan for laparoscopic cholecystectomy. The risks of the procedure were discussed, all questions were answered, and the patient agreed to proceed with surgery as planned. Description of Procedure The patient was properly identified, consented, and taken to the operating room where he was placed in the supine position. General endotracheal anesthesia was induced. SCDs and a safety belt were placed. Preoperative antibiotics were administered. The patient's abdomen was prepped and draped in the standard sterile fashion. A surgical timeout was performed and all parties were in agreement that this was the correct patient and procedure to be performed and we continued as planned. An incision was made superior and to the left of the umbilicus overlying the rectus muscle and the Veress needle was inserted. Saline drop test confirmed entry into the peritoneum. The abdomen was insufflated with carbon dioxide which the patient tolerated without incident. The abdomen was then entered using the Optiview technique and a 5 mm trocar. The laparoscope was inserted and no damage from initial trocar or Veress needle placement was noted, no gross abnormalities were noted within the 4 quadrants of the abdomen. An 11 mm port was placed in the subxiphoid position and two 5 mm ports were then placed in the right subcostal position. The patient was placed in reverse Trendelenburg position and rotated towards the left. The gallbladder was distended and acutely inflamed. The gallbladder was decompressed with the aspiration needle to accommodate retraction. The dome of the gallbladder was retracted towards the left upper quadrant and the infundibulum was retracted toward the right lower quadrant revealing Calot's triangle. Peritoneal attachments were taken down with electrocautery and blunt dissection. The cystic duct and artery were circumferentially dissected. A window of safety was obtained showing the cystic duct entering the gallbladder with no aberrant structures noted. The cystic duct and artery were doubly clipped and divided. The gallbladder was then lifted off the gallbladder fossa with electrocautery. The gallbladder was placed in an Endo Catch bag and removed through the subxiphoid port site. During extraction the bag broke and stones were spilled. These were retrieved. The right upper quadrant was irrigated and hemostasis was found to be good. 5 mm trochars were removed under direct visualization and the abdomen was allowed to collapse. The subxiphoid port site fascia was closed with 0 Vicryl suture utilizing a Sadi-To device. The wound was irrigated, and the skin of all ports was closed with 4-0 Monocryl subcuticular sutures. Dermabond was placed over the wounds. The patient was extubated in the operating room and taken to the PACU where he recovered without apparent incident. All sponge, instrument and needle counts were correct at the conclusion of the procedure. The patient tolerated the procedure well. The physician's imaging assistant was present and scrubbed for the entirety of the case and was essential in positioning the patient, prepping and draping, retraction and exposure, driving the laparoscope, removal of the gallbladder, closure the incisions, and placement of the dressings. I attest to the content of the Intraoperative Record and any orders documented therein. Any exceptions are noted below.
--- NOTE | 2025-06-01 16:24 | Anesthesiology Progress Note ---
Date of Service June 01, 2025 Anesthesia Post Procedure Vital Signs Vital Signs: Temp Pulse Pulse Resp BP Pulse Ox O2 Del Method 06/01/25 16:20 37.0 C 89 17 125/80 90 Nasal Cannula 06/01/25 16:10 88 12 130/82 90 Oxymask 06/01/25 16:00 92 H 16 125/84 89 L Oxymask 06/01/25 15:50 95 H 17 136/69 90 Oxymask 06/01/25 15:40 91 H 15 140/86 91 Oxymask 06/01/25 15:30 92 H 17 131/84 91 Oxymask 06/01/25 15:20 87 12 138/87 92 Oxymask 06/01/25 15:10 87 15 127/84 92 Oxymask 06/01/25 15:00 37.9 C H 90 14 132/83 93 Oxymask 06/01/25 12:40 37.4 C 85 20 97/52 L 94 Room Air 06/01/25 08:36 37.0 C 80 18 94/58 L 90 Room Air 06/01/25 08:15 105/62 05/31/25 20:02 36.7 C 96 H 111/70 92 Room Air 05/31/25 20:00 Room Air O2 Flow Rate 06/01/25 16:20 4 06/01/25 16:10 4 06/01/25 16:00 4 06/01/25 15:50 4 06/01/25 15:40 8 06/01/25 15:30 15 06/01/25 15:20 15 06/01/25 15:10 15 06/01/25 15:00 15 06/01/25 12:40 06/01/25 08:36 06/01/25 08:15 05/31/25 20:02 05/31/25 20:00 Pain Intensity Chest: Pain Intensity: 8 Abdomen: Pain Intensity: 4 Transfer of Care Handoff Completed per policy Notes Mental Status: alert / awake / arousable and participated in evaluation Patient Amnestic to Procedure: Yes Nausea / Vomiting: adequately controlled Pain: adequately controlled Airway Patency, RR, SpO2: stable & adequate BP & HR: stable & adequate Hydration State: stable & adequate Anesthetic Complications: no major complications apparent and Pt Satisfied with anesthetic care
[2025-06-01] MEDS: ACETAMINOPHEN 500 MG TAB PO SCH (16:43)
[2025-06-01 20:31] LABS: Anion Gap 9.0 (3-11); Blood Urea Nitrogen 31.0 mg/dl (6-23); Calcium 8.7 mg/dl (8.6-10.3); Carbon Dioxide 25.0 mmol/L (21-32); Chloride 101.0 mmol/L (98-107); Creatinine Clr Calc Pharmacy 70.8 ml/min; Glucose 208.0 mg/dl (70-99(Fasting)); Potassium 3.8 mmol/L (3.5-5.1); Sodium 135.0 mmol/L (136-145)
[2025-06-01 23:10] VITALS: TEMP 97.9
[2025-06-02 06:07] LABS: Hematocrit (blood only) 35.9 % (42.0-52.0); Hemoglobin 11.8 g/dL (14.0-18.0); Mean Corpuscular Hemoglobin 28.3 pg (25.0-34.0); Mean Corpuscular Volume 86.1 fL (80.0-100.0); Platelet Count 225 K/uL (130-400); RDW Standard Deviation 44.2 fL (36.4-46.3); Red Blood Count 4.17 M/uL (4.70-6.10); White Blood Count 9.63 K/ul (4.8-10.8)
[2025-06-02 06:31] LABS: Anion Gap 7.0 (3-11); Blood Urea Nitrogen 28.0 mg/dl (6-23); Calcium 8.6 mg/dl (8.6-10.3); Carbon Dioxide 27.0 mmol/L (21-32); Chloride 104.0 mmol/L (98-107); Creatinine Clr Calc Pharmacy 89.9 ml/min; Glucose 150.0 mg/dl (70-99(Fasting)); Potassium 4.2 mmol/L (3.5-5.1); Sodium 138.0 mmol/L (136-145)
[2025-06-02 06:50] LABS: INR 1.2 (0.9-1.1); Prothrombin Time 12.4 Seconds (9.0-12.0)
[2025-06-02 08:04] VITALS: BP 123/80; PULSE 82; RESP 17; O2SAT 94
--- NOTE | 2025-06-02 08:06 | Surgery Progress Note ---
Date of Service June 02, 2025 Assessment & Plan (1) Status post laparoscopic cholecystectomy: Plan: POD #1 laparoscopic cholecystectomy, doing well. Advance diet as tolerated 24 hours antibiotics Okay to restart Coumadin, may start heparin prophylaxis Okay for discharge from general surgery standpoint Wound care instructions and activity restrictions reviewed (2) Acute calculous cholecystitis: (3) JOSE (acute kidney injury): (4) Pulmonary embolism: Admission and Anticipated Discharge Date Admission Date: May 30, 2025 Subjective POD #1 laparoscopic cholecystectomy. Little sore, pain from prior to surgery is improved. Tolerating clears. Physical Exam Constitutional: WD/WN, vitals as above Gastrointestinal (Abdomen): Inspection/Auscultation: + abdominal surgical incision (Mild ecchymosis, no infection) Percussion/Palpation: + abdomen tender (Appropriately tender to palpation) and abdomen soft; no guarding and abdomen not rigid Results & Data Vital Signs (Past 12 Hours) Vital Signs Temp Pulse Resp BP Pulse Ox O2 Del Method O2 Flow Rate 06/02/25 02:08 75 103/66 95 Room Air 6 06/01/25 23:40 36.6 C 80 18 100/64 94 Nasal Cannula 6 06/01/25 23:09 36.6 C 82 18 98/60 L 90 Nasal Cannula 6 06/01/25 20:07 86 134/77 Laboratory Results Laboratory Results - last 24 hr 06/01/25 06/02/25 19:50 05:36 WBC 9.63 RBC 4.17 L Hgb 11.8 L Hct 35.9 L MCV 86.1 MCH 28.3 MCHC 32.9 RDW Std Deviation 44.2 RDW Coeff of Aleksandr 14.2 Plt Count 225 MPV 8.9 L PT 12.4 H INR 1.2 H Sodium 135 L 138 Potassium 3.8 4.2 Chloride 101 104 Carbon Dioxide 25 27 Anion Gap 9 7 BUN 31 H 28 H Creatinine 1.79 H D 1.41 H D Est Cr Clr Drug Dosing 70.8 89.9 eGFR 48.22 64.21 BUN/Creatinine Ratio 17.3 19.9 Glucose 208 H 150 H Calcium 8.7 8.6 PG Care Time/CCT Total # of Minutes Spent Total Time Spent with Patient: Total time spent is greater than 50% in coordination of care (as documented) at patient's floor/unit and/or counseling patient: Coding Level of Care Code 57531 Post Operative Follow-Up Diagnoses Status post laparoscopic cholecystectomy Z90.49 Acute calculous cholecystitis K80.00 JOSE (acute kidney injury) N17.9 Pulmonary embolism I26.99
--- NOTE | 2025-06-02 12:24 | Discharge Summary ---
<Statement entered by Joseph Covarrubias, - 06/02/25 12:46> I have seen and examined the patient and have discussed the case with the advance practice provider. I have reviewed the advanced practitioner's documentation, and I agree with, and take responsibility for that plan of care. Patient had uneventful postoperative period. Abdominal pain significantly improved. Tolerating his diet. Acute kidney injury significantly improved with hydration, suspect mild contrast induced nephropathy expected to continue to improve Discharge plan as outlined below I spent a total of 14 minutes coordinating, documenting, and providing care for this patient excluding time spent by another provider/QHP. Discharge Summary Date of Service June 02, 2025 Principal Dx & Hospital Course #1 = Principal Diagnosis (1) Acute calculous cholecystitis: (2) JOSE (acute kidney injury): (3) Bipolar I disorder: (4) Pulmonary embolism: (5) HTN (hypertension): Plan Patient is a 39y/o M with PMHx significant for HTN, HLD, history of pulmonary embolism anticoagulated on Coumadin, prediabetes, mood disorder and past substance use who presented to the ED from [facility] on 05/30/2025 with c/o RUQ abdominal pain and was found to have acute calculous cholecystitis. Acute calculous cholecystitis Imaging including CTAP and gallbladder US c/w suspected early cholecystis. S/p laparoscopic cholecystectomy on 06/01/[address] Carrion. Uneventful postoperative course. No indication for any further ABX. Tolerating advance diet. Cleared to resume Coumadin per general surgery, cleared for discharge from general surgery standpoint. Acute kidney injury, improved Did have notable increase in creatinine during hospitalization 2/2 suspected contrast-induced nephropathy (s/p CTAP with con and chest CTA on 05/30). Creatinine improved s/p IVF. Advised to hydrate appropriately. Hypertension BP improved, can continue Lopressor on DC. Recommend holding HCTZ until repeat BMP in 1 week to monitor JOSE. History of PE on chronic oral anticoagulation therapy with Coumadin Was diagnosed 3yr ago. Coumadin was on hold for surgery. Can resume Coumadin today per general surgery. Mood disorder Well-controlled, at baseline. Continue [employer] psych med regimen including Lamictal, Effexor, olanzapine and hydroxyzine. Disposition: Patient is being discharged back to [facility] in stable condition with outpatient general surgery follow-up. Patient seen in collaboration with Dr. Covarrubias. Please see addendum. I spent a total of 55 minutes coordinating, documenting, and providing care for this patient excluding time spent in the performance of separately billed services or time spent by another provider/QHP. This included personally reviewing all current laboratories and imaging studies, medical reconciliation, outpatient chart review and discussion with specialists. This chart was completed in part utilizing Speech Voice Recognition Software. Grammatical errors, random word insertions, pronoun errors, and incomplete sentences are an occasional consequence of this system due to software limitations, ambient noise, and hardware issues. Any formal questions or concerns about the content, text, or information contained within the body of this dictation should be directly addressed to the provider for clarification. Notes For Next Care Provider Recommend repeat BMP in 1 week to monitor creatinine level. Will need outpatient follow-up appointment with Dr. Carrion, primary surgeon, in 1 to 2 weeks for routine postoperative check. Medication Changes From Visit Holding HCTZ until repeat BMP is completed to reassess renal function. Admission HPI Per Admitting Provider History obtained from patient and records. Medical history significant for on hypertension, hyperlipidemia, pulmonary embolism on Coumadin, prediabetes, antisocial personality disorder, mood disorder, substance abuse disorder as per records, past tobacco/alcohol abuse. Last confinement 2020 for acute pulmonary embolism associated with pleural effusion. Patient discharged on Lovenox/Coumadin bridge therapy. Patient not feeling well since last night. Dizziness symptoms without headache. 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 Some nausea symptoms. Patient prescribed Aug[facility] at [facility] for possible pneumonia. Chest x-ray to be done on Sunday as per patient. Patient brought to ER for evaluation for worsening symptoms despite intake of 1 antibiotic pill. Initial SBP 190s upon arrival at the ER. SBP currently 150s. 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 A&Ox3, conversing appropriately. HEENT: Normocephalic, atraumatic. External ear and nose normal, oropharynx moist. Respiratory: Normal respiratory effort, CTAB. Cardiovascular: RRR, no BLE edema. Abdomen/GI: Active bowel sounds, soft, + laparoscopic sites with mild surrounding ecchymosis (no evidence of drainage), mild tenderness with palpation across abdominal wall (expected postoperatively), no guarding or rigidity. Extremities/Musculoskeletal: No cyanosis or clubbing, extremities motor strength intact, moves all extremities. Neurologic: No overt focal deficits, CN's II-XI not formally tested but appear grossly intact bilaterally. Updated Medication List Medication Instructions Recorded Confirmed Type amoxicillin 875 mg-potassium 1 tab PO BID 05/30/25 05/30/25 History clavulanate 125 mg tablet azithromycin 250 mg tablet 250 mg PO DAILY 05/30/25 05/30/25 History hydrochlorothiazide 12.5 mg capsule 12.5 mg PO DAILY 05/30/25 05/30/25 History hydroxyzine pamoate 50 mg capsule 100 mg PO HS 05/30/25 05/30/25 History lamotrigine 100 mg tablet 200 mg PO HS 05/30/25 05/30/25 History (Lamictal) metoprolol tartrate 25 mg tablet 25 mg PO BID 05/30/25 05/30/25 History olanzapine 20 mg tablet 20 mg PO HS 05/30/25 05/30/25 History rosuvastatin 40 mg tablet 40 mg PO HS 05/30/25 05/30/25 History venlafaxine 150 mg 300 mg PO HS 05/30/25 05/30/25 History capsule,extended release 24 hr (Effexor XR) warfarin 5 mg tablet 5 mg PO HS 05/30/25 05/30/25 History Hospital Stay Data Consultations 05/30/25 21:24 ED Decision to Admit Stat Procedures Performed Operation Date: 06/01/25 11:40 Actual Procedures p Laparoscopic Cholecystectomy(Not Applicable) - Cornel Carrion, DO, FACS Diagnostic Imagining Performed 05/30/25 16:39 CT abd pelvis IV con only Stat CT angio chest PE protocol Stat 05/30/25 18:42 US gallbladder Stat Pending Results Patient Have Any Pending Studies at Discharge: Yes Discharge Instructions Given to Patient (Per Discharging Provider) SPECIAL CARE INSTRUCTIONS: * You have skin glue over your incisions called dermabond. you may shower with this on. It will tend to dissolve and fall off within a couple weeks. Do not pick at the skin glue * You may take Tylenol #3 if your facility provides it for pain. Otherwise you may take Tylenol or Ibuprofen. Do not exceed the daily limit of acetaminophen within a 24 hour time period. * You may shower. NO soaking in pools or baths for 2 weeks * No lifting greater than 10lbs. No strenuous exercise until cleared by surgeon. Light walking is accepted. * No driving while taking narcotic pain medication; wait at least 3 days * No drinking alcohol while taking narcotic pain medication * May use Tylenol over the counter for pain as tolerated. Do not exceed 3grams of Tylenol per 24 hours * Expect some swelling and bruising. * Diet- you may resume your regular diet Call your doctor if: * Temperature above 101 degrees, nausea/vomiting, fever/chills * Pain not relieved by pain medicine ordered * There is increased drainage or redness from any incision * You have any unanswered questions or concerns [phone]. FOLLOW UP VISIT: If not already scheduled, please call the office for a follow-up visit. Office Total Time Total Time Spent Total Time Spent (In Minutes): 55
[2025-06-02] MEDS ORDERED: WARFARIN SOD 5 MG TAB PO SCH (16:00)
== END 2025-06-02 15:35 | DRG 418 ==
LOC: ED 16:20 → 3E 22:18